=== PATIENT | male | born 1965 | race Caucasian/White ===

== ENCOUNTER → 2017-08-23 | Outpatient (CLI) | payer OTHER ==
--- NOTE | 2017-08-23 12:17 | DIAGNOSTIC IMAGING REPORT ---
LEFT SUBMANDIBULAR REGION ULTRASOUND CLINICAL HISTORY: Enlarging left neck mass COMPARISON STUDY: No previous studies for comparison. FINDINGS: There is a 62 x 46 x 18 mm nonvascular soft tissue mass abutting the left submandibular gland inferior to the left mandible. While this may simply represent a lipoma, accurate tissue characterization is not possible ultrasonographically. A CT scan or MRI study is recommended in follow-up. IMPRESSION: 62 x 46 x 18 mm nonvascular soft tissue mass abutting the left centimeter gland. Accurate tissue characterization is not possible ultrasonographically. A CT scan or MRI study is recommended in follow-up. Electronically signed by: Willian Ricks M.D. 08/23/2017 12:16 PM Dictated Date/Time: 08/23/2017 12:12 PM
== END | disposition home or self-care (01) ==
LOC: C.ULTRBC 11:38
PROVIDERS: ATTEND Nurse Practitioner Family
DX: R22.1 Localized swelling, mass and lump, neck (principal)

== ENCOUNTER 2017-09-15 07:29 | Day surgery (SDC) | payer OTHER ==
[2017-09-13 08:42] VITALS: Ht 182.9 cm; Wt 101.5 kg
--- NOTE | 2017-09-13 09:25 | PAT Medication Instructions ---
Service Date Sep 13, 2017. Current Home Medication List Albuterol Hfa (Ventolin Hfa), 2 PUFFS INH Q6H PRN for PRN Amlodipine (Norvasc), 10 MG PO HS Cyclobenzaprine Hcl (Flexeril), 10 MG PO BID PRN for RN Ferrous Gluconate (Ferrous Gluconate), 324 MG PO QAM Fish Oil ([place]-3), 1-2 CAP PO PRN Fluticasone Propionate (Nasal) (Flonase Allergy Relief), 2 SPRAYS INTNAS PRN Hydrochlorothiazide (Hydrochlorothiazide), 1 TAB PO QAM Hydrocodone/Acetaminophen 5MG/325MG ([place] 5MG/325MG), 1 TABLET PO QID PRN for N Losartan Potassium (Cozaar), 25 MG PO QAM [Voltaren Gel], 1 DOSE TOP PRN Medication Instructions For Your Scheduled Surgery - Hold the following medications as of today: Fish Oil ([place]-3), 1-2 CAP PO PRN - Hold the following medications 24 hours prior to surgery: [Voltaren Gel], 1 DOSE TOP PRN - Hold the following medications the morning of surgery: Losartan Potassium (Cozaar), 25 MG PO QAM Hydrochlorothiazide (Hydrochlorothiazide), 1 TAB PO QAM Ferrous Gluconate (Ferrous Gluconate), 324 MG PO QAM Cyclobenzaprine Hcl (Flexeril), 10 MG PO BID PRN - Take the following medications the morning of surgery with a sip of water OTHERWISE NOTHING TO EAT OR DRINK AFTER MIDNIGHT: Albuterol Hfa (Ventolin Hfa), 2 PUFFS INH Q6H PRN for PRN (use if needed; BRING TO HOSPITAL) Hydrocodone/Acetaminophen 5MG/325MG ([place] 5MG/325MG), 1 TABLET PO QID PRN (may take up to 4 hours prior to surgery if needed) Fluticasone Propionate (Nasal) (Flonase Allergy Relief), 2 SPRAYS INTNAS PRN - Take the following medications as scheduled the night before surgery: Albuterol Hfa (Ventolin Hfa), 2 PUFFS INH Q6H PRN for PRN Amlodipine (Norvasc), 10 MG PO HS Hydrocodone/Acetaminophen 5MG/325MG ([place] 5MG/325MG), 1 TABLET PO QID PRN Cyclobenzaprine Hcl (Flexeril), 10 MG PO BID PRN If you have any questions please call us at [phone] or [phone] or [phone]
--- NOTE | 2017-09-14 10:12 | History and Physical ---
History & Physical Date Sep 14, 2017. Chief Complaint lump in neck, nasal obstruction History of Present Illness The patient is a 52 year old male with complaints of lipoma left neck and septal deviation Additional History Hepatic Disease: No Endocrine Disorder: No Kidney Disease: No Hypertension: No Heart Disease: No Bleeding Tendencies: No Infectious Diseases: No Allergies Coded Allergies: No Known Allergies (Unverified , 09/13/17) Home Medications Scheduled Amlodipine (Norvasc), 10 MG PO HS Ferrous Gluconate (Ferrous Gluconate), 324 MG PO QAM Fish Oil ([place]-3), 1-2 CAP PO PRN Fluticasone Propionate (Nasal) (Flonase Allergy Relief), 2 SPRAYS INTNAS PRN Hydrochlorothiazide (Hydrochlorothiazide), 1 TAB PO QAM Losartan Potassium (Cozaar), 25 MG PO QAM [Voltaren Gel], 1 DOSE TOP PRN Scheduled PRN Albuterol Hfa (Ventolin Hfa), 2 PUFFS INH Q6H PRN for PRN Cyclobenzaprine Hcl (Flexeril), 10 MG PO BID PRN for RN Hydrocodone/Acetaminophen 5MG/325MG ([place] 5MG/325MG), 1 TABLET PO QID PRN for N Physical Examination Skin: warm/dry, no rash Eyes: normal inspection, EOMI, sclerae normal ENT: normal ENT inspection, pharynx normal, + pertinent finding (septum bent to left) Head: normocephalic, atraumatic Neck: supple, no adenopathy, trachea midline, + pertinent finding (large soft mass left neck) Respiratory/Chest: lungs clear, normal breath sounds, no respiratory distress Cardiovascular: regular rate, rhythm, no edema, no murmur Abdomen / GI: normal bowel sounds, non tender Back: normal inspection Extremities: normal inspection, normal range of motion Neurologic/Psych: no motor/sensory deficits, alert, normal reflexes, oriented x 3 Diagnosis septal deviation, lipoma neck Plan of Treatment septoplasty, excision of lipoma
[~2017-09-15] VITALS: Ht 182.9 cm; Wt 101.5 kg
[~2017-09-15 07:29] MED LIST: AMLO-114 PO; CEFAZOLIN 2000MG IV PUSH 10 ML IV SCH; CYCL10TA6 PO; FERR325T18 PO; FLUT0.15 INTNAS; HYDR-5688 PO; HYDR12.55 PO; LACTATED RINGER'S 1000ML 1,000 ML IV SCH; LOSA1TAB PO; OMEG10007 PO; VNTHFA/IN INH; VOLTAREN GEL TOP
[2017-09-15 07:59] VITALS: BP 133/92; PULSE 63; TEMP 36.7; O2SAT 95
--- NOTE | 2017-09-15 08:14 | History & Physical Bridge Note ---
H&P Re-Evaluation Bridge Note: I have examined the patient, reviewed the History & Physical and in the interval since the performance of the History & Physical I have noted the following changes of clinical significance: No changes noted
[2017-09-15] MEDS ORDERED: HYDR-5688 PO (08:15)
[2017-09-15] MEDS ORDERED: HYDROCODONE/ACETAMOPHEN 5/325MG TAB PO PRN ×2 (08:15)
--- NOTE | 2017-09-15 08:17 | Discharge Instructions-SurgCtr ---
Discharge Instructions Date of Service Sep 15, 2017. Visit Reason for Visit: Lipoma, Septal Deviation, Discharge Discharge Diagnosis / Problem: same Discharge Goals Goal(s): Improve function Activity Recommendations Activity Limitations: resume your previous activity Anesthesia . Post Anesthesia Instructions: If you have had General Anesthesia or IV Sedation: * Do not drive today. * Resume driving when surgeon permits. * Do not make important decisions or sign legal documents today. * Call surgeon for: 1. Temperature elevations greater than 101 degrees F. 2. Uncontrollable pain. 3. Excessive bleeding. 4. Persistent nausea and vomiting. 5. Medication intolerance (nausea, vomiting or rash). * For nausea and vomiting use only clear liquids such as: tea, soda, bouillon until nausea subsides, then gradually increase diet as tolerated. * If you have any concerns or questions, call your surgeon's office. If physician is unavailable and it is an emergency, call 911 or go to the nearest emergency room. . Instructions / Follow-Up Instructions / Follow-Up ACTIVITY: Most patients are able to return to a full-time work schedule in 1 week; however this may vary according to your job. It may take longer to return to heavy physical or other demanding work, or shorter if you are feeling well. Do NOT drive a car until you are able to turn the neck side to side, which may take 1-[address] you are taking pain medicines. DIET: You may have temporary throat discomfort or difficulty swallowing. This is due to the surgery around your larynx (voice box) and esophagus (swallowing tube). These symptoms will gradually improve over the course of several weeks. Drink and eat foods that can be swallowed easily, e.g. juice, soup, gelatin, applesauce, scrambled eggs or mashed potatoes. You may be able to return to your usual diet in a couple of days. INCISION CARE: You may shower 24 hours after surgery but please do not swim or soak in a tub for at least 2 weeks. After you are done showering, just pat your incision dry. If it is draining clear fluid, you can cover it with a dry dressing (such as gauze). Do NOT scrub with soap or washcloth for the first 10 days. Mild swelling at the incision site will go away in 4-6 weeks. The pink line will slowly fade to white during the next 6-12 months. Use a sunscreen (SPF#30 or higher) or wear a scarf for protection if in the sun for the first 6 months to a year as the sun can darken your scar. You may begin to use a hypoallergenic moisturizing cream (no vitamin E, Mederma , or other scar creams) along the incision after 2 weeks. COMMON PROBLEMS: Numbness of the skin under the chin or above the incision is normal and should go away in a few weeks. You may feel a lump or pressure in your throat sensation when swallowing for a few days. Your incision may feel itchy while it heals. Avoid rubbing or scratching if possible. You may feel neck stiffness, tightness or a pulling feeling. Some people prefer to sleep with an extra pillow for the first few days after the surgery, this helps keep swelling around your incision to a minimum. Your voice may be hoarse or weak. Pitch or tone may change. You may have difficulty singing. This usually goes back to normal over 6 weeks to 6 months. After surgery, you may notice a change in your mood, emotional ups and downs, depression, irritability or fatigue and weakness. These changes will get better as time passes. You do not need to be at bed rest, being active is normally well tolerated within reason. CALL YOUR DOCTOR IF: For any non-urgent questions, call Dr. Brown office [phone] or the nursing unit where you were a patient. Call Dr. Chau [phone] or go to the Emergency Room if you have fever ( temperature greater than 100.5), chills, lightheadedness, shortness of breath, difficulty breathing, nausea, vomiting, numbness or tingling in your fingers, hands, or mouth, muscle spasms, or if you notice signs of wound infection ( redness, tenderness, or drainage from the incision). Please also call or go to the Emergency Room if you have any other urgent concerns. FOLLOW UP VISIT: Follow-up visit with Dr. Chau. Please call to schedule if not already scheduled.ACTIVITY RECOMMENDATIONS: * Being up and around is good, but no strenuous activity, heavy lifting or physical exertion for one week. * Keep your head elevated 30 degrees when lying down or sleeping. * Do not blow your nose for 48 hours, sniff back instead. * Avoid hot showers. OVER THE COUNTER MEDICATIONS: * You may use Tylenol * Avoid aspirin or aspirin containing products, e.g. as they may increase bleeding. SPECIAL CARE INSTRUCTIONS: * Expect to have bloody drainage from your nose and/or down your throat for one to three days. Change drip pad as needed. * Begin irrigating your nose with saline solution today, at least six to ten times per day and sniff back to help remove old clots or crust. * You may experience nasal and facial congestion, pain and pressure, this is normal. * Please call with any significant and/or progressive pain, redness, swelling around the eyes, visual changes, fever of 101.5 degrees F, active bleeding or any problems or concerns. * If active bleeding occurs, spray the nose three times at one minute intervals with Afrin spray and call or cell phone: . If unable to reach the doctor, go to the nearest Emergency Department. Special Diet: * Avoid extremely hot fluids. FOLLOW UP VISIT: Follow-up Visit with Dr. Chau If not already scheduled, please call to schedule. Diet Recommendations Home Diet: no limitations Pending Studies Studies pending at discharge: no Medical Emergencies . Who to Call and When: Medical Emergencies: If at any time you feel your situation is an emergency, please call [phone] immediately. . Non-Emergent Contact Non-Emergency issues call your: Primary Care Provider . . "Provider Documentation" section prepared by Aminah Chau. . [place] Drug Monitoring Program Search Results: no issues identified
[2017-09-15] MEDS ORDERED: LIDOCAINE HCL 2% LOCAL 50ML VIAL ONE (08:58)
[2017-09-15] MEDS ORDERED: FENTANYL CITRATE INJ 50 MCG/1 ML 2 ML VIAL IV PRN (09:00)
[2017-09-15] MEDS ORDERED: EpHEDrine SULFATE INJ 50 MG/ML AMP IV PRN (09:00)
[2017-09-15] MEDS ORDERED: ATROPINE SULFATE 0.1 MG/ML 5ML SYR IV PRN (09:00)
[2017-09-15] MEDS ORDERED: ONDANSETRON INJ 2 MG/ML 2 ML VIAL IV PRN (09:00)
[2017-09-15] MEDS ORDERED: ONDANSETRON INJ 2 MG/ML 2 ML VIAL ONE (09:04)
[2017-09-15] MEDS ORDERED: LIDOCAINE HCL 2% 2 ML VIAL (20MG/ML) ONE (09:04)
[2017-09-15] MEDS ORDERED: MIDAZOLAM HCL 1 MG/ML 2ML VIAL ONE (09:04)
[2017-09-15] MEDS ORDERED: SUCCINYLCHOLINE CHLORIDE 20 MG/ML 10 ML VIAL IV ONE (09:04)
[2017-09-15] MEDS ORDERED: PHENYLEPHRINE HCL INJ 10 MG/ML VIAL ONE (09:04)
[2017-09-15] MEDS ORDERED: FENTANYL CITRATE INJ 50 MCG/1 ML 2 ML VIAL ONE ×2 (09:04→10:02)
[2017-09-15] MEDS ORDERED: GLYCOPYRROLATE INJ 0.2 MG/ML VIAL ONE (09:04)
[2017-09-15] MEDS ORDERED: PROPOFOL IV EMULSION 10 MG/ML 20 ML VIAL IV ONE (09:04)
[2017-09-15] MEDS ORDERED: EpHEDrine SULFATE INJ 50 MG/ML AMP ONE (09:04)
[2017-09-15] MEDS ORDERED: NEOSTIGMINE METHYLSULFATE 5 MG/5 ML SYR ONE (09:04)
[2017-09-15] MEDS ORDERED: DEXAMETHASONE SOD INJ 4 MG/ML VIAL ONE (09:04)
[2017-09-15] MEDS ORDERED: LIDOCAINE 4% INH SOLN 4 ML BTL ONE (09:09)
[2017-09-15] MEDS ORDERED: EpINEphrine HCL INJ 1 MG/ML 5ML SYRINGE ONE (09:09)
[2017-09-15] MEDS ORDERED: GELATIN SPONGE 12-7MM ONE (09:09)
[2017-09-15] MEDS ORDERED: LIDO 2%/EPINEPHRINE 1:100000 20 ML VIAL INFIL ONE (09:09)
[2017-09-15] MEDS ORDERED: MUPIROCIN 2% OINT 22 GM TUBE ONE (09:09)
[2017-09-15] MEDS ORDERED: KETAMINE HCL INJ 50 MG/ML 10 ML VIAL ONE (09:38)
--- NOTE | 2017-09-15 11:24 | OPERATIVE REPORT ---
DATE OF OPERATION: 09/15/2017 PREOPERATIVE DIAGNOSES: 1. Lipoma, left neck. 2. Septal deviation. POSTOPERATIVE DIAGNOSIS: Same. PROCEDURE: Excision lipoma, left neck and septoplasty. SURGEON: Dr. Chau. ANESTHESIA: General endotracheal. COMPLICATIONS: None. BLOOD LOSS: 20 mL. HISTORY OF PRESENT ILLNESS: This 52-year-old gentleman presented with increasing soft mass of the left neck over the last 1 year, also has left-sided nasal obstruction with septal deviation. OPERATION AND FINDINGS: PROCEDURE: The patient was brought to the operating room and placed in supine position. General endotracheal anesthesia was induced. Prepped with ChloraPrep and draped in the usual sterile manner with the neck hyperextended for excision of the left neck lipoma. The incision was injected with 2% Xylocaine with 1:100,000 strength epinephrine. The incision was made using the 15 blade, carried down through the skin and subcutaneous layer using the 15 blade. The incision was carried through the platysma layer exposing the submental muscles which was retracted anteriorly. The lipoma was dissected free bluntly and sharply with the hemostat with the Metzenbaum scissors and with the angle clamps. In this manner, dissecting the entire lipoma free from underneath submental muscle it was attached to the submandibular gland posteriorly. Multiple adhesions were lysed using the Metzenbaum scissors and also the bipolar cautery preserving the submandibular gland and dissecting the lipoma away from the submandibular gland. In this manner, the entire submental space lipoma was removed preserving the submandibular gland. Hemostasis was controlled using the bipolar cautery. The [place] drain was placed in the depth of the wound. Incision was closed with interrupted 4-0 Vicryl sutures on the platysmal layer, interrupted 3-0 chromic sutures on the subcutaneous layer and interrupted 2-0 Prolene sutures on the skin with a drain sewn in place. Light pressure dressing was placed. The nose was decongested with cottonoids with topical solution of 4 mL of 4% Xylocaine mixed with 1 mL of epinephrine. Injection 2% Xylocaine 1:1,000 strength epinephrine was also used. The left hemitransfixion incision was made and mucoperichondrium elevated off the left side of the septum. Septal cartilage inferiorly from the V[place] and maxillary crest and posteriorly from the perpendicular plate of the ethmoid. A strip of cartilage was projecting to the left was removed from inferiorly and the deviated portion of the perpendicular plate of the ethmoid projecting to the left was removed in small pieces via bilateral posterior tunnel using the Delvis rongeurs to cut small pieces of the perpendicular plate of the ethmoid and then the bone spur was removed using the Sergey forceps, this returning the septum to the midline. The septum was closed with continuous mattress suture of 4-0 plain gut and anterior nasal packing of Gelfoam was placed. The patient tolerated procedure well and was taken to recovery area in satisfactory condition. I attest to the content of the Intraoperative Record and any orders documented therein. Any exceptions are noted below. MTDD
[2017-09-15] MEDS: HYDROmorphone INJ 1 MG/ML SYR IV PRN ×4 (11:32→11:45)
[2017-09-15] MEDS ORDERED: LABETALOL HCL IV 5 MG/ML 20ML IV PRN (11:45)
[2017-09-15] MEDS ORDERED: LABETALOL HCL IV 5 MG/ML 20ML IV ONE (11:59)
[2017-09-15 12:15] VITALS: BP 137/84; PULSE 64; TEMP 36.3; O2SAT 94
[2017-09-15 12:48] VITALS: BP 141/91; PULSE 73; O2SAT 95
[2017-09-15] MEDS ORDERED: SODIUM CHLORIDE 0.9% 1000ML 1,000 ML IV SCH (13:00)
[2017-09-15 13:13] VITALS: BP 150/88; PULSE 76; TEMP 36.6; O2SAT 96
== END 2017-09-15 13:23 | disposition home or self-care (01) ==
LOC: C.ACU 07:29
PROVIDERS: ATTEND Otolaryngology
DX: J34.2 Deviated nasal septum (principal); D17.0 Benign lipomatous neoplasm of skin and subcutaneous tissue of head, face and neck; Z79.899 Other long term (current) drug therapy

== ENCOUNTER 2023-10-20 09:20 | Inpatient (IN) ==
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
[2023-10-20] MEDS: dexAMETHasone**PF** 10 MG/ML VIAL IV SCH (09:59)
[2023-10-20] MEDS: LACTATED RINGER'S 1,000 ML IV SCH (09:59)
[2023-10-20] MEDS: ACETAMINOPHEN 500 MG TAB PO SCH ×2 (09:59→23:30)
[2023-10-20] MEDS: LR 60ML/HR IV SCH (10:00)
[2023-10-20] MEDS: FAMOTIDINE 20 MG TAB PO SCH (10:00)
[2023-10-20] MEDS: GABAPENTIN 300 MG CAP PO SCH (10:00)
[2023-10-20] MEDS ORDERED: ONDANSETRON INJ 2 MG/ML 2 ML VIAL IV PRN (10:12)
[2023-10-20] MEDS ORDERED: ePHEDrine sulfate 50 MG/ML AMP IV PRN (10:12)
[2023-10-20] MEDS ORDERED: PROMETHAZINE HCL 6.25 MG in SODIUM CHLORIDE 0.9% 50 ML IV PRN (10:12)
[2023-10-20] MEDS ORDERED: ATROPINE SULFATE 0.1 MG/ML 10ML SYR IV PRN (10:12)
[2023-10-20] MEDS ORDERED: HYDROmorphone INJ 2 MG/ML SYR/VIAL IV PRN (10:12)
[2023-10-20] MEDS ORDERED: BUPIVACAINE 0.5 % 5 MG/1 ML PF 10ML VIAL ONE (10:18)
--- NOTE | 2023-10-20 10:28 | History & Physical Bridge Note ---
Date of Service October 20, 2023 History & Physical Bridge Note I have examined the patient, reviewed the History & Physical and in the interval since the performance of the History & Physical I have noted the following changes of clinical significance: no changes noted
[2023-10-20] MEDS ORDERED: MIDAZOLAM HCL 1 MG/ML 2ML VIAL ONE (10:54)
[2023-10-20] MEDS ORDERED: fentaNYL citrate PF 100 MCG/2 ML VIAL ONE (10:54)
[2023-10-20] MEDS: TRANEXAMIC ACID 1,000 MG **IV Pre-op IV SCH (11:25)
[2023-10-20] MEDS: ceFAZolin 2000MG 2,000 MG/15 ML SYR IV SCH ×2 (11:35→18:51)
[2023-10-20] MEDS ORDERED: KETAMINE HCL 10MG/ML SYR ONE (12:02)
[2023-10-20] MEDS: BUPIVACAINE/EPINEPHRINE 0.5% MPF 1:200,000 30 ML VIAL ONE (12:51)
[2023-10-20] MEDS ORDERED: LIDOCAINE 2% 2 ML VIAL/AMP(20MG/ML) INFIL ONE (12:51)
[2023-10-20] MEDS: TRANEXAMIC ACID 1,000 MG **IV Intra-op IV SCH (12:51)
[2023-10-20] MEDS ORDERED: PROPOFOL IV EMULSION 10 MG/ML 20 ML VIAL IV ONE (12:51)
[2023-10-20] MEDS ORDERED: ACETAMINOPHEN 500 MG TAB PO PRN (13:16)
--- NOTE | 2023-10-20 13:59 | Fluoroscopy Report ---
FL femur LT 2V CLINICAL HISTORY: LEFT INTRAMEDULLARY NAIL FIXATION FEMUR COMPARISON STUDY: Left femur 10/17/2023. FLUOROSCOPY TIME: 1 minute and 56 seconds FLUOROSCOPY IMAGES: 4 Ka,r: 15.8 mGy FINDINGS: There is an intramedullary kajal and interlocking femoral neck pin within the left femur. The hardware appears intact. The alignment is anatomic. This traverses the proximal femoral lesion. IMPRESSION: Fluoroscopic assistance as above. ACT 112: Negative or not required by law. Electronically signed by: Yazan Curtis M.D. 10/20/2023 1:58 PM
--- NOTE | 2023-10-20 14:31 | Anesthesiology Progress Note ---
Date of Service October 20, 2023 Anesthesia Post Procedure Vital Signs Vital Signs: Temp Pulse Pulse Resp BP Pulse Ox O2 Del Method 10/20/23 14:25 85 18 137/88 93 Room Air 10/20/23 14:15 81 18 122/82 92 Room Air 10/20/23 14:05 84 18 140/87 94 Room Air 10/20/23 13:55 79 15 139/92 93 Room Air 10/20/23 13:45 82 17 136/91 96 Room Air 10/20/23 13:35 84 17 130/79 99 Oxymask 10/20/23 13:25 77 20 126/81 98 Oxymask 10/20/23 13:15 75 18 118/73 98 Oxymask 10/20/23 13:07 36 C L 84 18 122/79 97 Oxymask 10/20/23 10:17 36.7 C 94 H 20 177/124 H 94 Room Air O2 Flow Rate 10/20/23 14:25 10/20/23 14:15 10/20/23 14:05 10/20/23 13:55 10/20/23 13:45 10/20/23 13:35 4 10/20/23 13:25 4 10/20/23 13:15 6 10/20/23 13:07 6 10/20/23 10:17 Transfer of Care Handoff Completed per policy Notes Mental Status: alert / awake / arousable and participated in evaluation Nausea / Vomiting: adequately controlled Pain: adequately controlled Airway Patency, RR, SpO2: stable & adequate BP & HR: stable & adequate Hydration State: stable & adequate Neuraxial Anesthesia: was administered and sensory block is resolving Anesthetic Complications: no major complications apparent and Pt Satisfied with anesthetic care
--- NOTE | 2023-10-20 15:13 | Operative Report ---
PG Post Operative Report Pre & Post Diagnosis Operation Date: 10/20/23 11:00 Pre-Op Diagnosis: Impending pathologic fracture of the left femur with lung metastases Post-Op Diagnosis: Impending pathologic fracture of the left femur with lung metastases I identified the patient and participated in the time-out.: Yes Procedure Operation Date: 10/20/23 11:00 Actual Procedures p Left Femur Intramedullary Nail Fixation(Left) - Domingo Cooper DO Surgeon Domingo Cooper DO Soda Tester Domingo Benjamin PA-C Estimated Blood Loss 30 Findings Consistent with Post-Op Diagnosis Specimens None Description of Procedure On October Wai arrived at [facility] for the above procedure. He was seen in the preop holding area and the operative extremity identified and signed. He was given a preoperative antibiotic and a spinal anesthetic. He was taken back to the operating room and transferred to the fracture table. He was put under basic sedation. The left leg was brought to treat gentle traction. The left hip was then prepped and draped sterile fashion. A timeout was done. The patient and the operative extremity was properly identified. A longitudinal incision was made just superior to the greater trochanter. Dissection was taken down through the fascia. A guidepin was then placed at the tip of the greater trochanter and advanced down the center of the femoral canal. A 17 mm opening reamer was used. A ball-tipped guidewire was then placed down the femoral canal. A single 12 mm reamer was passed. The Synthes TFN nail measured to be 400 mm. A 400 elected millimeter Synthes TFN nail was then impacted into place. Appropriate placement was checked on orthogonal fluoroscopic images. A small lateral incision was made and the cannula was advanced for the helical blade. A guidepin was placed into the center center position of the femoral head. The lateral cortex was then drilled. A Synthes helical blade was then impacted into place. The blade was then locked with a locking screw. The outrigger was then removed. Final fluoroscopic images showed anatomic alignment. A single distal locking screw was then placed with the use of peripheral mary's igloo techniques. The wounds were then irrigated. Deep fascia was closed with #1 Vicryl. Skin was closed with 2-0 Vicryl and pascual. He was then placed in a soft dressing. He was then transferred to a hospital bed and taken to the postanesthesia care unit in stable condition. He tolerated the procedure well. Domingo Benjamin PA-C, was present for the entire procedure. He was critical for patient positioning, prepping, draping, retraction exposure, wound closure and application of sterile dressing. I attest to the content of the Intraoperative Record and any orders documented therein. Any exceptions are noted below.
[2023-10-20] MEDS ORDERED: ALBUTEROL HFA 8 GM INHALER INH PRN (16:36)
[2023-10-20] MEDS: MoRPHine SULFATE CR 15 MG TABCR PO SCH (17:31)
--- NOTE | 2023-10-20 17:47 | XRay Report ---
XR femur LT 2V routine CLINICAL HISTORY: Post-Operative implant position COMPARISON STUDY: Pelvis CT 10/11/2023. FINDINGS: There is a intramedullary kajal and interlocking femoral neck pin within the left femur. The hardware appears intact. This traverses the proximal femoral destructive lesion measuring 6.3 cm. Ski n pascual are in place. No acute fracture at this time. No dislocation. Old, healed left pubic ring f racture again noted. IMPRESSION: Postoperative changes as described above. The hardware appears intact. ACT 112: Negative or not required by law. Electronically signed by: Yazan Curtis M.D. 10/20/2023 5:46 PM
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
[2023-10-20] MEDS: oxyCODONE HCL IR 5 MG TAB (IMMEDIATE RELEASE) PO PRN (18:56)
[2023-10-20] MEDS: MoRPHine SULFATE 4 MG/ML 1 ML CARP\\VIAL IV PRN ×2 (19:30→23:22)
[2023-10-20 19:39] LABS: Hematocrit (blood only) 39.2 % (42.0-52.0); Hemoglobin 12.6 g/dl (14.0-18.0)
[2023-10-20] MEDS: ASPIRIN 81 MG ECTAB PO SCH (19:57)
[2023-10-20] MEDS: amLODIPine BESYLATE 5 MG TAB PO ONE (19:58)
[2023-10-20] MEDS: CYCLOBENZAPRINE HCL 10 MG TAB PO PRN (19:59)
[2023-10-20 20:19] LABS: Calcium 8.8 mg/dl (8.6-10.3); Potassium 3.8 mmol/L (3.5-5.1)
[2023-10-20 20:25] LABS: BUN Creatinine Ratio 12.2 (10-20); Creatinine Clr Calc Pharmacy 74.9 ml/min; Est GFR (African American) 75.1 ml/min; Est GFR (Non-African American) 64.8 ml/min
[2023-10-20] MEDS: HYDROmorphone INJ 0.5 MG/0.5 ML SYR IV STA (21:08)
[2023-10-20] MEDS: MELATONIN 3 MG TAB PO PRN (21:08)
[2023-10-20] MEDS ORDERED: oxyCODONE HCL IR 5 MG TAB (IMMEDIATE RELEASE) PO PRN (23:00)
[2023-10-20] MEDS: KETOROLAC 30 MG/ML VIAL IV STA (23:42)
[2023-10-21] MEDS: KETOROLAC 30 MG/ML VIAL IV SCH (06:09)
--- NOTE | 2023-10-21 07:05 | Orthopedic Progress Note ---
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 Will see how he does today with therapy. If he does well with therapy he can go home later today, however, if he is slow with therapy or if he is having a lot of pain then I am happy to keep him an extra day. He is on aspirin for DVT prophylaxis. Sari Carreno was seen and examined at bedside this morning. Unfortunately he is having a lot of pain in the left leg. He was having some trouble ambulating yesterday. He has no other complaints.. Review of Systems All systems reviewed & are unremarkable except as noted in HPI & below. Physical Exam On physical examination of the left leg, the leg is out full extension. He has active dorsiflexion plantarflexion of his left ankle.. Results & Data Results & Data Laboratory Results . Diagnostic Findings Postoperative x-rays of the left femur show the prosthesis to be in good alignment.. 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
[2023-10-21 07:09] LABS: BUN Creatinine Ratio 18.2 (10-20); Calcium 9.2 mg/dl (8.6-10.3); Est GFR (African American) 97.6 ml/min; Est GFR (Non-African American) 84.2 ml/min; Potassium 4.4 mmol/L (3.5-5.1)
[2023-10-21] MEDS: LOSARTAN POTASSIUM 50 MG TAB PO SCH (08:27)
[2023-10-21] MEDS: UMECLIDINIUM/VILANTEROL 62.5/25MCG 7 PUFFS/INHALER INH SCH (08:27)
[2023-10-21] MEDS: MoRPHine SULFATE 4 MG/ML 1 ML CARP\\VIAL IV PRN (08:39)
--- NOTE | 2023-10-21 11:34 | Hospitalist Progress Note ---
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 Outpatient evaluation with necrotic mediastinal adenopathy suspicious for metastatic disease versus lymphoproliferative disease. Patient did see pulmonology, low suspicion for infectious etiology. Follow-up biopsy showed metastatic squamous cell carcinoma, and PET scan confirmed FDG avid metastatic disease. Patient is following with Dr. Gupta and Dr. Loving. He is pending initiation of chemo next week and has had simulation for radiation which is also due to start next week Continue outpatient follow-up for this, no acute management change -S/p Left Femur Intramedullary Nail fixation with Dr. Clifford 10/20 - Discussed DVT proh with oncology and Dr. clifford, transitioned patient to lovenox SQ 40 at discharge (2) Tachycardia: Plan: Tachycardia Mild regular tachycardia 90slow 100s. postop. ~100bp, at the bedside. Prior EKG from 10/17 reviewed. This showed nonspecific ST changes, normal sinus rhythm, QRS of 92, [place] 206. Repeat EKG similar. Initially with poor wandering baseline automated read interpreted as STEMI, repeat improved quality tracing without territorial ST segment change or T wave inversion. Patient is clinically without any chest pain Suspect reactive tachycardia with pain and mild volume contraction. Fluids continued. Patient feels his pain overall improves with oxycodone which works well for him -10/21 HRs 80s. Repeat EKG without ST changes or T wave invervsion. (3) COPD (chronic obstructive pulmonary disease): Plan: COPD with emphysema Gold B Continue Stiolto/formulary equivalent Current smoker [id number] history with recent 1 pack/day tobacco use cutting back now 1 pack every few days. Declines patch/NRT at bedside No wheezing on exam, no acute exacerbation noted (4) Hypertension: Plan: Hypertension Patient did not take his losartan, normally well-controlled Suspect increased in the setting of pain and recent surgery in addition to hav ing his losartan held. Received one-time dose of amlodipine for BP 10/20 - Resumed losartan 10/21 (5) Nephrolithiasis: Plan: Large Right side Nephroliathasis - Seen on PET scan 09/21 - 1.9cm calculus in the right renal pelvis with mild hydronephrosis -creatinine normal Patient does endorse occasional, Right sided back pain. Will need outpatient urology follow up. Plan Dispo: medically stable for discharge Will need outpatient urology follow up lovenox rx sent Admission and Anticipated Discharge Date Admission Date: October 20, 2023 Supervising Physician Co-Signing Physician Notes PA Supervision Note: I did not personally see or examine the patient today, but I verified all lynch points of ARSALAN Rodriguez's assessment and plan with the following exceptions/additions: None Subjective Patient seen sitting up in the chair, states pain is more controlled. Denies CP, SOB or visual changes. Discussed kidney stone seen on previous imaging, patient was not aware of this. Does report occasional upper back pain. Physical Exam Physical Exam: General: NAD, VS as above Resp: normal respiratory effort, lungs clear to auscultation CV: RRR, no murmur, Results & Data Results & Data Vital Signs (Past 12 Hours) Vital Signs Temp Pulse Resp BP Pulse Ox O2 Del Method 10/21/23 08:29 36.7 C 78 18 183/98 H 97 Room Air 10/21/23 00:11 36.9 C 83 18 155/88 H 94 Room Air Laboratory Results BMP and H&H reviewed PG Care Time/CCT Total # of Minutes Spent Total Time Spent with Patient: Total time spent is greater than 50% in coordination of care (as documented) at patient's floor/unit and/or counseling patient: Coding Level of Care Code 24160 SUB INP/OBS CARE 2/35MIN Diagnoses 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
[2023-10-21] MEDS: ENOXAPARIN INJ 40 MG/0.4 ML SYR SQ ONE (13:30)
--- NOTE | 2023-10-21 17:17 | Electrocardiogram Report ---
Test Reason : Blood Pressure : / mmHG Vent. Rate : 100 BPM Atrial Rate : 100 BPM P-R Int : 252 ms QRS Dur : 086 ms QT Int : 346 ms P-R-T Axes : 000 070 123 degrees QTc Int : 446 ms Poor data quality, interpretation may be adversely affected Sinus rhythm Moderate voltage criteria for LVH, may be normal variant Abnormal ECG When compared with ECG of 17-OCT-2023 15:44, Probably no change Confirmed by Clem Aldana ([id number]) on 10/21/2023 5:17:14 PM Referred By: Domingo Cooper Confirmed By:Clem Aldana
--- NOTE | 2023-10-21 17:40 | Electrocardiogram Report ---
Test Reason : Blood Pressure : / mmHG Vent. Rate : 105 BPM Atrial Rate : 105 BPM P-R Int : 214 ms QRS Dur : 088 ms QT Int : 344 ms P-R-T Axes : 000 072 071 degrees QTc Int : 454 ms Sinus tachycardia with 1st degree A-V block with occasional Premature ventricular complexes Moderate voltage criteria for LVH, may be normal variant Abnormal ECG When compared with ECG of 20-OCT-2023 18:40, (unconfirmed) Premature ventricular complexes are now Present Confirmed by Clem Aldana ([id number]) on 10/21/2023 5:39:51 PM Referred By: Domingo Cooper Confirmed By:Clem Aldana
--- NOTE | 2023-10-22 21:57 | Electrocardiogram Report ---
Test Reason : Blood Pressure : / mmHG Vent. Rate : 094 BPM Atrial Rate : 094 BPM P-R Int : 176 ms QRS Dur : 106 ms QT Int : 366 ms P-R-T Axes : 009 071 068 degrees QTc Int : 457 ms Normal sinus rhythm Voltage criteria for left ventricular hypertrophy Abnormal ECG When compared with ECG of 20-OCT-2023 18:44, (unconfirmed) Premature ventricular complexes are no longer Present FL interval has decreased Confirmed by Clem Aldana ([id number]) on 10/22/2023 9:57:11 PM Referred By: Domingo Cooper Confirmed By:Clem Aldana
--- NOTE | 2023-10-27 14:16 | Discharge Summary ---
Date of Service October 27, 2023 Principal Diagnosis Same as "Discharge Diagnosis" noted below under Discharge Instructions. Discharge Exam On physical examination of the left leg, the leg is out full extension. He has active dorsiflexion plantarflexion of his left ankle.. Discharge Data Consultations 10/20/23 17:12 Consult Hospitalist Routine 10/21/23 14:00 Consult OLIVE facing machine operator Routine Procedures Performed Operation Date: 10/20/23 11:00 Actual Procedures p Left Femur Intramedullary Nail Fixation(Left) - Domingo Cooper DO Ordered Studies 10/20/23 11:00 FL femur LT 2V Routine Hospital Course (1) Metastatic carcinoma to bone: On October 20, 2023 Wai arrived at [facility] and underwent prophylactic nail fixation of his left hip. Postoperatively he was transferred to the general orthopedic floors. His hospital course was uneventful. On postop day #1, his vital signs were stable and his pain was fairly well-controlled. He was having a lot of pain in the morning but it seemed to get better with the pain medications. He was seen by physical therapy and was able to do ambulation and range of motion exercises. He was then discharged home. He will follow-up with orthopedics in 2 weeks. PG Care Time/CCT Total # of Minutes Spent Total Time Spent with Patient: Total time spent is greater than 50% in coordination of care (as documented) at patient's floor/unit and/or counseling patient: Discharge Plan Discharge Items Patient Disposition: Home - Self-Care Reason For Visit: Bone Neoplasm Left Femur Discharge Diagnosis: Intramedullary nail fixation of the left femur Activity: As commented below Non-emergency contact: Surgeon Call non-emergency contact if: your wound has increased redness and your wound has increased drainage Follow-up/Referrals: Lori Ortiz PA-C [Primary Care Provider] - Diet: Regular Addtl Attending Provider Instructions: ORTHOPEDIC INSTRUCTIONS Hip Fracture Activity and Therapy Recommendations: 1. You were shown a series of exercises in the hospital. Do these exercises three times each day if you are able. 2. Get up and walk several times each day if you are capable. Make sure you have assistance is needed. For the first four weeks, try not to stand or walk for more than one hour at a time. If you do stand or walk for more than one hour, you will not hurt anything, but your leg will likely swell. 3. As you feel comfortable, you may change from the walker or crutches to a cane and then to independent walking if you are able. Please be safe. Medications: 1. Narcotic You will likely be sent from the hospital with the narcotic pain medication that worked best throughout your stay. 2. Other medications may be given for specific circumstances. If you have any questions, please call the office at [phone]. 3. Resume previous home medications unless otherwise instructed TEDs/Elastic Stockings: The white elastic stockings help limit swelling and prevent blood clots from forming in your legs. The more you wear them, the more they work. Wear them for six weeks. Dressing Care: [place] can be open to air as long as the incisions are not draining. If the incisions are draining or if the pascual are getting caught on your clothes then please cover the pascual with dry gauze. Change the dressings as necessary to keep the incision as dry as possible Showering: You may shower 5 days from the day of surgery as long as the incisions are not draining. Do not soak the incision. Let soapy water run over the pascual and pat them dry. Things To Watch For: 1. Drainage from the incision site that occurs more than one week after your surgery. 2. Increased redness at the incision site. 3. Fever above 102 degrees Fahrenheit. 4. Unusual chest pain or shortness of breath. 5. Call [facility] at with any of the above problems Follow-Up Visit: Follow-up with Dr. Cooper's PA (Domingo Benjamin) 2-3 weeks after your day of surgery. He will remove your pascual and answer any questions. If you have any additional questions or concerns, Dr Cooper is usually in the office at the same time and will be available Please call the office to set up an appointment for a time that works for you. Addtl [employer] Lead Provider Instructions: You will take a lovenox injection every day. Your oncologist is aware of this and they can discuss with you when to stop taking it. The nurse will teach you how to do the injections and the pharmacist can also help with this. Pending Studies at Discharge: No Stand-Alone Forms: [facility], Pain - Opioid Pain Management, Smoking Cessation Medications and DC Order Prescriptions: New hydrocodone-acetaminophen 5-325 mg tablet 1 tab PO Q6H PRN (Reason: pain) Qty: 30 0RF enoxaparin [Lovenox] 40 mg/0.4 mL syringe 40 mg subcut DAILY 14 Days Qty: 5.6 0RF Continued cyclobenzaprine 10 mg tablet 10 mg PO HS PRN (Reason: Pain) Stiolto Respimat 2.5-2.5 mcg/actuation mist 2 puff inhalation DAILY Qty: 4 2RF albuterol sulfate [Ventolin HFA] 90 mcg/actuation HFA aerosol inhaler 2 puff INHALATION Q6H PRN (Reason: SOB) Qty: 6.7 2RF losartan 50 mg Tablet 50 mg PO QAM morphine 15 mg Tablet Extended Release 15 mg PO Q12H Discharge Orders: Discharge Order (Routine); Ordered 10/21/23 Ordered By: Domingo Patton/Other Patient Handouts: DVT Post Op Prevention Admission Data Admit Date/Time: 10/20/23 13:15 Attending Provider: Domingo Cooper Admit Provider: Domingo Cooper Primary Care Provider: Lori Ortiz Other Providers: Love Martines Other Interventions: Discharge Summary Assessment (RN) Last Done: 10/21/23 13:16
== END 2023-10-21 13:47 | disposition home or self-care (01) | DRG 481 ==
LOC: ASU 09:20 → 3N 13:15

== ENCOUNTER 2024-07-12 15:39 | Inpatient (IN) ==
[2024-07-12 17:02] LABS: Basophils # (auto) 0.03 K/uL (0.00-0.20); Basophils % (auto) 0.2 %; Eosinophils # (auto) 0.02 K/uL (0.00-0.50); Eosinophils % (auto) 0.2 %; Hematocrit (blood only) 40.3 % (42.0-52.0); Hemoglobin 12.6 g/dl (14.0-18.0); Immature Granulocytes # (auto) 0.05 K/uL (0.01-0.20); Immature Granulocytes % (auto) 0.4 %; Lymphocytes # (auto) 0.59 K/uL (1.20-3.40); Lymphocytes % (auto) 4.7 %; Mean Corpuscular Hemoglobin 27.3 pg (25.0-34.0); Mean Corpuscular Hgb Conc 31.3 g/dL (32.0-36.0); Mean Corpuscular Volume 87.2 fL (80.0-100.0); Mean Platelet Volume 10.2 fL (9.4-12.4); Monocytes # (auto) 1.18 K/uL (0.11-0.59); Monocytes % (auto) 9.4 %; Neutrophils # (auto) 10.63 K/uL (1.40-6.50); Neutrophils % (auto) 85.1 %; Platelet Count 407 K/uL (130-400); RDW Coefficient of Variation 15.5 % (11.5-14.5); RDW Standard Deviation 49.8 fL (36.4-46.3); Red Blood Count 4.62 M/uL (4.70-6.10)
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
[2024-07-12] MEDS: SODIUM CHLORIDE 0.9% 1,000 ML IV ONE ×2 (17:11→17:49)
[2024-07-12 17:23] LABS: Alanine Aminotransferase 22 U/L (7-52); Albumin Globulin Ratio 1.1 (0.9-2); Albumin Level 3.9 gm/dl (3.4-5.0); Alkaline Phosphatase 150 U/L (34-104); Anion Gap 7 (3-11); Aspartate Aminotransferase 24 U/L (13-39); BUN Creatinine Ratio 19.3 (10-20); Bilirubin,Total 0.5 mg/dl (0.2-1.0); Blood Urea Nitrogen 21 mg/dl (6-23); Calcium 12.7 mg/dl (8.6-10.3); Carbon Dioxide 31 mmol/L (21-32); Chloride 93 mmol/L (98-107); Globulin 3.7 gm/dl (2.5-4.0); Glucose 98 mg/dl (70-99(Fasting)); Magnesium 2.5 mg/dl (1.7-2.4); Potassium 4.6 mmol/L (3.5-5.1); Sodium 131 mmol/L (136-145); Total Protein 7.6 gm/dl (6.0-8.3)
[2024-07-12 17:28] LABS: INR 1.1 (0.9-1.1); Partial Thromboplastin Ratio 0.9; Partial Thromboplastin Time 25 Seconds (21-31); Prothrombin Time 11.4 Seconds (9.0-12.0); Troponin I High Sensitivity 9.3 pg/ml (0-20)
[2024-07-12] MEDS: fentaNYL citrate PF 100 MCG/2 ML VIAL IV STA (17:44)
--- NOTE | 2024-07-12 18:07 | XRay Report ---
EXAM: Radiograph of the Chest 1 View INDICATION: Sepsis. TECHNIQUE: Frontal view of the chest. COMPARISON: No relevant prior studies available. FINDINGS: Lungs and pleural spaces: Trace basilar pleural effusion versus thickening. Mild atelectasis or scarring noted in the left lung base. No pneumothorax. Symmetrical interstitial prominence likely chronic. No pulmonary edema. No consolidation or pulmonary edema. Heart: Shape and configuration within normal limits allowing for technique. Mediastinum: Normal contour. Bones/joints: Degenerative changes noted throughout the spine. No acute osseous abnormality seen. Soft tissues: No abnormality noted. No radiopaque foreign body noted. Tubes, lines and devices: Left subclavian central venous port catheter terminates in the mid SVC. Upper abdomen: No abnormality noted. IMPRESSION: 1. Trace bilateral pleural effusions versus pleural thickening. 2. Mild left basilar atelectasis or scarring. 3. Lines and tubes as above. ACT 112: Negative or not required by law. Electronically signed by Lyssa Li 07-12-2024 6:06 PM
[2024-07-12] MEDS: PIPERACILLIN/TAZOBACTAM 4.5 GM/100 ML BAG IV ONE (18:59)
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
[2024-07-12] MEDS ORDERED: PROCHLORPERAZINE MALEATE 10 MG TAB PO PRN (23:06)
[2024-07-12] MEDS ORDERED: ALBUT/IPRATROP 3MG/0.5MG NEB 3 ML VIAL NEB PRN (23:06)
[2024-07-12] MEDS ORDERED: ALBUTEROL HFA 8 GM INHALER INH PRN (23:06)
[2024-07-12] MEDS ORDERED: ONDANSETRON INJ 2 MG/ML 2 ML VIAL IV PRN (23:06)
[2024-07-12] MEDS ORDERED: [UNRECOGNIZED DRUG - OTHER] PO SCH (23:06)
[2024-07-12 23:26] LABS: Appearance Urine Cloudy (Clear); Bacteria Urine Automated None Seen (None Seen); Bilirubin Urine Negative (Negative); Blood Urine Negative (Negative); Calcium Oxalate Crystals Urine Present (None Prsent); Color Urine Yellow; Epithelial Cell Urine Auto 0-2 /hpf (0-2); Glucose Urine UA Negative (Negative); Ketones Urine Trace (Negative); Leukocyte Esterase Urine Trace (Negative); Nitrite Urine Negative (Negative); Protein Urine 1+ (Negative); RBC Urine Automated 0-2 /hpf (0-2); Urobilinogen Urine Negative (Negative); WBC Urine Automated 0-5 /hpf (0-5); pH Urine 7.5 (4.5-7.5)
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
[2024-07-13] MEDS: HEPARIN SOD 5,000 UNIT/0.5 ML VIAL SQ SCH (00:31)
[2024-07-13] MEDS: CHOLECALCIFEROL 10 MCG (400 UNITS) TAB PO SCH (00:31)
[2024-07-13] MEDS: oxyCODONE HCL 20 MG TABCR (OxyCONTIN) PO SCH (00:37)
[2024-07-13] MEDS: PAMIDRONATE DISODIUM 60 MG in SODIUM CHLORIDE 0.9% 1,000 ML IV SCH (00:37)
[2024-07-13] MEDS: HYDROmorphone INJ 1 MG/ML SYRINGE IV PRN (02:20)
--- OUTSIDE RECORDS SUMMARY | 2024-07-13 03:14 | External Medical Summary | Summary of Care ---
Author Name Unknown Organization [facility] Address [address] [place] [address] Phone [phone] Care Team Providers Care Inspector Floor Sub Assembly Name Role Phone Lyssa Platt Primary Care Provid er Reason for Visit * Reason Comments Short of Breath * Auth/Cert Specialty Diagnoses / Procedures Referred By Contac t Referred To Contact [facility] [address] [place] [address] Phone: [phone] Emergency Medicine [facility] [address] [place] [address] Referral ID Status Reason Start Date Expiration Date Visits Re quested Visits Authorized [id number] Encounter Details Date Type Department Care Team ([facility] st Contact Info) Description 07/07/2024 11:03 AM EST - 07/07/2024 5:40 PM EST Emergency [facility] Emergency Department ([facility]) [address] [place], [place] [id number] Flores Thayer MD [address], [place] [id number] Mediastinitis (Primary Dx); Screening for cardiovascular condition; Esophageal perforation; Pneumomediastinum (HCC) Discharge Disposition: Short Term Hospital Allergies Active Allergy Reactions Criticality Noted Date Comments Oxycodone-Acetaminophen Nausea/vomiting 008 documented as of this encounter (statuses as of 07/08/2024) Medications Medication Sig Dispensed Refills Start Date End Date Status GABAPENTIN 300 MG PO TABS three tablets once daily as needed Suspended FLEXERIL 10 MG PO TABS as directed as needed Suspended LISINOPRIL-HYDROCH LOROTHIAZIDE 20-12.5 MG PO TABS 1 tablet daily Schmitz spended HYDROCODONE-ACETAM INOPHEN 7.5-325 MG PO TABS 4 times a day (lower back pain) Suspended Albuterol Sulfate (PROVENTIL HFA) 108 (90 Base) MCG/ACT AERSIndications:LR TI (lower respiratory tract infection) Inhale 2 Puffs by mouth every 4 hours as needed for Cough, Shortness of Breath or Wheezing. 1 Inhaler 07/13/2019 Suspended Additional Information documented as of this encounter (statuses as of 07/08/2024) Active Problems Problem Noted Date Diagnosed Date Pneumonitis 07/07/2024 Hemoptysis 07/07/2024 Atypical pneumonia 01/03/2023 Mediastinal lymphadenopathy 01/03/2023 Vapes non-nicotine containing substance 01/04/20 23 COPD exacerbation 01/03/2023 COPD, severity to be determined 01/03/2023 Nondependent alcohol abuse, in remission 023 Tobacco user 01/02/2023 Acute respiratory failure with hypoxia 3 Pleural effusion 01/02/2023 COPD (chronic obstructive pulmonary disease) 02/2022 Mixed hyperlipidemia 05/10/2022 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 HTN, goal below 140/90 10/22/2001 Major depressive disorder 10/22/2001 Overview: ICD-10 update of inactive term Major depressive disorder 10/22/2001 Overview: ICD-10 update of inactive term HTN, goal below 140/90 10/22/2001 documented as of this encounter (statuses as of 07/08/2024) Immunizations Name Administration Dates Next Due Pneumococcal Conjugate Vacci ne, 20-valent ([id number]) 2023(Deferred: Patient Refused - Pt refusing vaccine) TDAP (age 10 and older)(Boostrix) 03/18/2021 documented as of this encounter Social History Tobacco Use Types Packs/Day Years Used Date Smoking Tobacco: Every Day Cigarettes 1 12 Smokeless Tobacco: Never Alcohol Use Standard Drinks/Week Comments No 0 (1 standard drink = 0.6 oz pur e alcohol) Utilities Answer Date Recorded Do you have trouble paying y our heating, water, or electric bill? (Adult - for ages 18 years and over) Not on file 02/20/2024 Is your family able to pay t he heat, water, or electric bill? (Household - for ages 0-17 years) Not on file 02/20/2024 Does your family have access to good internet? (Household - for ages 0-17 years) Not on file 02/20/2024 Social Connections Answer Date Recorded How often do you feel lonely or isolated from those around you? (Adult - for ages 18 years and over) Not on file 02/20/2024 Sex and Gender Information Value Date Recorded Sex Assigned at Male 01/03/2023 4:34 PM EDT Gender Identity Male 01/03/2023 4:34 PM EDT Sexual Orientation Straight 01/03/2023 4: 31 PM EDT Job Start Date Occupation Industry Not on file Not on file Not on file documented as of this encounter Last Filed Vital Signs Vital Sign Reading Time Taken Comments Blood Pressure 106/80 07/07/2024 5:15 PM EST Pulse 112 07/07/2024 5:15 PM EST Temperature 36.6 C (97.9 F) 07/07/2024 11:[address] Respiratory Rate 20 07/07/2024 5:15 PM EST Oxygen Saturation 97% 07/07/2024 5:15 PM EST Inhaled Oxygen Concentration - - Weight 65.8 kg (145 lb) 07/07/2024 11:04 AM EST Height 182.9 cm (6') 07/07/2024 11:04 AM EST Body Mass Index 19.67 07/07/2024 11:04 AM EST documented in this encounter Functional Status Functional Status Response Date of Assess ment Are you deaf or do you have serious difficulty h earing? No 01/02/2023 Are you blind or do you have serious difficulty seeing, even when wearing glasses? No 01/02/2023 Do you have serious difficul ty walking or climbing stairs? (5 years old or older) No 01/02/2023 Do you have difficulty dress ing or bathing? (5 years old or older) No 01/02/2023 Because of a physical, menta l, or emotional condition, do you have difficulty doing errands alone such as visiting a doctor s office or shopping? (15 years old or older) No 01/03/20 23 Cognitive Status Response Date of Assessm ent Because of a physical, menta l, or emotional condition, do you have serious difficulty concentrating, remembering, or making decisions? (5 years old or older) No 01/02/2023 documented as of this encounter ED Notes * Stephanie Alford RN - 07/07/2024 11:08 AM EST Pt comes in by ALS with EMS from home for complaints of shortness of breath that started this AM. Does have a hx of stage 4 lung CA. Went to the restroom to try and have a BM and became short of breath and anxious. Did use albuterol inhaler without relief. Was 98-97% on RA for EMS. documented in this encounter Miscellaneous Notes * ED Fabric Machine Operator Note - Damian Shafer RN - 07/07/2024 5:28 PM EST Report called to Sharona GABRIEL at [facility]. * ED Fabric Machine Operator Note - Damian Shafer RN - 07/07/2024 5:18 PM EST Report given to PABLO for transport to [facility]. * ED Fabric Machine Operator Note - Damian Shafer RN - 07/07/2024 11:25 AM EST Patient arrives to the ED with complaints of shortness of breath that has been getting worse over the past several days. Relates having a hx of lung cancer in which his last radiation treatment was last Monday. Is scheduled to start chemotherapy on 07/09. Reports he follows up with Rona Natarajan for his cancer treatment during this assessment. Has been coughing up brown sputum since onset of worsening shortness of breath. Denies any known fevers associated with his current symptoms. Tachycardic and hypoxic upon arrival to the ED. ST on CCM with HR in the 120's. SpO2 noted to be 85% on room air. Oxygen applied via nasal cannula. Required 6L NC to maintain saturations greater than 90%. Denies wearing any oxygen at home. Assessment as charted in flowsheets. 20 gauge IV established in RAC. Labs drawn and sent. Bed low with side rails up and call alonso in reach. 1225: Patient complains of oxygen burning his nose at this time. Humidified air applied to nasal cannula. SpO2 noted to be 99% on 6L NC. Oxygen titrated down to 2L NC. Will continue to monitor. documented in this encounter Plan of Treatment Scheduled Orders Name Type Priority Associated Diagnoses Orde r Schedule EKG EKG STAT Screening for cardiovascular condition Perform Now for 1 Occurrences starting 07/07/2024 until 07/07/2024 Scheduled Procedures Name Priority Associated Diagnoses Date/Ti me COLONOSCOPY FLEXIBLE PROXIMAL DIAGNOSTIC Recall History of colon polyps Health Maintenance Due Date Last Done Comments DISCUSS TOBACCO CESSATION (REFER TO SMARTSET #3292) 1966 Depression Monitoring 1978 HIV Screening 1981 Albumin/Creatinine Ratio 01/05/1984 Alpha-1 Antitrypsin 01/05/1984 Hepatitis C Screening 01/05/1984 Cologuard 2011 Fecal Occult Blood Test 2011 Sigmoidoscopy 2011 Zoster Vaccines (1 of 2) 01/05/2016 Colonoscopy 12/13/2023 12/12/2018, 12/03, 09/11/2013, Additional history exists Colorectal Cancer Screening 12/13/2023 COVID-19 Vaccine ( season) 2024 Influenza Vaccine (FLU shot) (#1) 2024 GFR 07/07/2025 07/07/2024, 05/0 11/2022, 01/03/2023, Additional history exists O2 ASSESSMENT COMPLETED IN PAST YEAR FOR COPD 07/07/2025 07/07/2024 Lipid Panel 11/01/2027 11/01/2022, 10/06, 02/09/2016, Additional history exists DTap/Tdap Vaccines (2 - Td or Tdap) 03/18/2031 03/18/2021 Hepatitis B Vaccine Completed 01/11/2000, 01/11/2000, 08/12/1999, Additional history exists RETIRED - COLONOSCOPY-EVERY 5 YRS AGES 18-100 Discontinued 12/12/2018, 12/12/2018, 09/11/2013, Additional history exists Pneumococcal Vaccine: Pediatrics (0 to 5 Years) and At-Risk Patients (6 to 64 Years) Completed 01/23/2023 HPV (Gardasil) Vaccine Aged Out No lo nger eligible based on patient's age to complete this topic MENINGOCOCCAL (MENACTRA/MENVEO) Aged Out No longer eligible based on patient's age to complete this topic documented as of this encounter Medical Devices Not on filedocumented as of this encounter Procedures Procedure Name Priority Date/Time Associated Diagnosis Comments TROPONIN T, HIGH SENSITIVITY STAT 07/07/2024 2:53 PM EST LACTATE STAT 07/07/2024 2:[address] PULMONARY EMBOLUS W CONTRAST STAT 07/07/2024 2:30 PM EST BLOOD GAS, ARTERIAL STAT 07/07/2024 1 2:10 PM EST XR CHEST 2 VIEWS STAT 07/07/2024 11:4 0 AM EST RESPIRATORY PATHOGEN PANEL, PCR STAT 07/07/2024 11:24 AM EST EXTRA LIGHT BLUE TOP Routine 07/07/2024 11:22 AM EST DIFFERENTIAL, AUTOMATED STAT 07/07/2024 11:22 AM EST TROPONIN T, HIGH SENSITIVITY STAT 07/07/2024 11:22 AM EST PROCALCITONIN Add-on 07/07/2024 11:22 AM EST BNP (NT-PROBNP) STAT 07/07/2024 11:22 AM EST COMPREHENSIVE METABOLIC PANEL STAT 07/07/2024 11:22 AM EST D-DIMER Add-on 07/07/2024 11:22 AM EST CK Add-on 07/07/2024 11:22 AM EST CBC STAT 07/07/2024 11:22 AM EST PT INR STAT 07/07/2024 11:22 AM EST CBC STAT 07/07/2024 11:22 AM EST documented in this encounter Results * LACTATE (07/07/2024 2:53 PM EST) Pathologist [facility] Lactate 1.5 0.4 - 2.0 mmol/L 07/07/2024 3:26 PM EST LABORATORY [facility] Blood Venous blood specimen / Unknown Venipuncture / Unknown 07/07/2024 2:53 PM EST 07/07/2024 3:00 PM EST Flores Thayer MD LAB BLOOD ORDERA BLES LABORATORY [address] [address] * TROPONIN T, HIGH SENSITIVITY (07/07/2024 2:53 PM EST) [facility] Troponin T, High Sensitivity 15 <=22 ng/L 07/07/2024 3:25 PM EST LABORATORY [facility] Blood Venous blood specimen / Unknown Venipuncture / Unknown 07/07/2024 2:53 PM EST 07/07/2024 3:00 PM EST Flores Thayer MD LAB BLOOD ORDERA BLES Performing Organization Address City/[facility]/ZIP Co de Phone Number LABORATORY [address] [phone] * CT PULMONARY EMBOLUS W CONTRAST (07/07/2024 2:30 PM EST) Anatomical Region Laterality Modality Chest, Cardio, Body Computed Willam ography 07/07/2024 2:22 PM EST Addenda Addendum by Cassy Granger MD on 07/07/2024 3:44 PM EST THIS REPORT CONTAINS FINDINGS THAT MAY BE CRITICAL TO PATIENT CARE. The findings were verbally communicated via telephone conference with FLORES Moseley at 3:44 PM EST on 07/07/2024. The findings were acknowledged and understood. THIS DOCUMENT HAS BEEN ELECTRONICALLY SIGNED BY CASSY GRANGER MD Impressions 07/07/2024 3:37 PM EST IMPRESSION: 1. No pulmonary embolism. 3. Evidence of possible mediastinitis with erosion of the posterior faye and presence of pneumomediastinum, cannot exclude esophageal perforation. 2. Bibasilar tree-in-bud micronodularity and ground-glass opacities, more prominent in the left lower lung, concerning for aspiration pneumonia or pneumonitis. 4. New ill-defined hepatic hypodensities, with the largest lesion in the right hepatic lobe (10 cm), concerning for metastases. Further evaluation recommended. THIS DOCUMENT HAS BEEN ELECTRONICALLY SIGNED BY CASSY GRANGER MD Narrative 07/07/2024 3:37 PM EST PROCEDURE INFORMATION: Exam: CTA Chest With Contrast Exam date and time: 07/07/2024 2:22 PM Age: 59 years old Clinical indication: Other: SOB; Tachy; CA mets; Pulmonary embolism; Wells score > 4; No known/automatically detected potential contraindications to iodinated contrast TECHNIQUE: Imaging protocol: Computed tomographic angiography of the chest with contrast. Exam focused on the arteries. 3D rendering (Not supervised by radiologist): MIP and/or 3D reconstructed images were created by the technologist. Radiation optimization: All CT scans at this facility use at least one of these dose optimization techniques: automated exposure control; mA and/or kV adjustment per patient size (includes targeted exams where dose is matched to clinical indication); or iterative reconstruction. Contrast material: ISOVUE 370; Contrast volume: 80 ml; Contrast route: INTRAVENOUS (IV); COMPARISON: CT CHEST WO CONTRAST 01/02/2023 10:34 AM FINDINGS: Tubes, catheters and devices: Tubes, Catheters, and Devices: Left anterior chest wall infusion port with tip terminating in the right atrium. Pulmonary arteries: Adequate visualization to the subsegmental level; no evidence of pulmonary embolism. Aorta: Ascending aorta is normal in caliber. Trachea: Erosion noted in the posterior faye (series 14, image 113) with associated soft tissue density and locules of air along the mediastinum, concerning for mediastinitis. Subcarinal hypodense density with tiny air locules raises concern for pneumomediastinum versus esophageal perforation. Lungs: Bibasilar tree-in-bud micronodularity and ground-glass opacities, more pronounced in the left lower lung, suggesting aspiration pneumonia/pneumonitis. Mild bilateral perihilar soft tissue density observed. Pleural spaces: No pneumothorax or pleural effusion. Heart: Normal heart size; no cardiomegaly or pericardial effusion. Esophagus: Patulous and fluid-filled. Lymph nodes: No enlarged lymph nodes. Liver: New ill-defined hypodensities throughout the liver, with the largest in the right hepatic lobe measuring up to 10 cm. Bones/joints: No acute fractures or significant abnormalities. Soft tissues: Unremarkable. Procedure Note Cassy Granger MD - 07/07/2024 PROCEDURE INFORMATION: Exam: CTA Chest With Contrast Exam date and time: 07/07/2024 2:22 PM Age: 59 years old Clinical indication: Other: SOB; Tachy; CA mets; Pulmonary embolism; Wells score > 4; No known/automatically detected potential contraindications to iodinated contrast TECHNIQUE: Imaging protocol: Computed tomographic angiography of the chest withcontrast. Exam focused on the arteries. 3D rendering (Not supervised by radiologist): MIP and/or 3D reconstructed images were created by the technologist. Radiation optimization: All CT scans at this facility use at least one ofthese dose optimization techniques: automated exposure control; mA and/or kV adjustment per patient size (includes targeted exams where dose is matchedto clinical indication); or iterative reconstruction. Contrast material: ISOVUE 370; Contrast volume: 80 ml; Contrast route: INTRAVENOUS (IV); COMPARISON: CT CHEST WO CONTRAST 01/02/2023 10:34 AM FINDINGS: Tubes, catheters and devices: Tubes, Catheters, and Devices: Left anterior chest wall infusion port with tip terminating in the right atrium. Pulmonary arteries: Adequate visualization to the subsegmental level; no evidence of pulmonary embolism. Aorta: Ascending aorta is normal in caliber. Trachea: Erosion noted in the posterior faye (series 14, image 113) with associated soft tissue density and locules of air along the mediastinum, concerning for mediastinitis. Subcarinal hypodense density with tiny air locules raises concern for pneumomediastinum versus esophagealperforation. Lungs: Bibasilar tree-in-bud micronodularity and ground-glass opacities,more pronounced in the left lower lung, suggesting aspirationpneumonia/pneumonitis. Mild bilateral perihilar soft tissue density observed. Pleural spaces: No pneumothorax or pleural effusion. Heart: Normal heart size; no cardiomegaly or pericardial effusion. Esophagus: Patulous and fluid-filled. Lymph nodes: No enlarged lymph nodes. Liver: New ill-defined hypodensities throughout the liver, with thelargest in the right hepatic lobe measuring up to 10 cm. Bones/joints: No acute fractures or significant abnormalities. Soft tissues: Unremarkable. IMPRESSION IMPRESSION: 1. No pulmonary embolism. 3. Evidence of possible mediastinitis with erosion of the posteriorcarina and presence of pneumomediastinum, cannot exclude esophageal perforation. 2. Bibasilar tree-in-bud micronodularity and ground-glass opacities,more prominent in the left lower lung, concerning for aspiration pneumonia or pneumonitis. 4. New ill-defined hepatic hypodensities, with the largest lesion in the right hepatic lobe (10 cm), concerning for metastases. Further evaluation recommended. THIS DOCUMENT HAS BEEN ELECTRONICALLY SIGNED BY CASSY GRANGER MD Flores Thayer MD RAD CT * (ABNORMAL) BLOOD GAS, ARTERIAL (07/07/2024 12:10 PM EST) Temperature 37.0 C 07/07/2024 12:17 PM EST LABORATORY [facility] pH, Arterial 7.408 7.350 - 7.450 units 07/07/2024 12:17 PM EST LAB[facility] pCO2, Arterial 41.1 35.0 - 45.0 mmHg 07/07/2024 12:17 PM EST [facility] pO2, Arterial 111.0(H) 75.0 - 100.0 mmHg 07/07/2024 12:17 PM EST [facility] Base Excess, Arterial 1.1 -2.0 - 2.0 mmol/L 07/07/2024 12:17 PM EST LAB[facility] HGB 11.7(L) 14.0 - 16.8 g/dL 07/07/2024 12:17 PM EST [facility] Oxyhemoglobin, Arterial 95.3 94.0 - 99.0 % total Hgb 07/07/2024 12:17 PM EST LAB[facility] Carboxyhemoglob in, Whole Blood 2.7(H) <=1.5 % total Hgb 07/07/2024 12:17 PM EST LAB[facility]AT[facility] Comment:Smokers: 0-9.0 % Methemoglobin, Whole Blood 0.5 <=1.5 % total Hgb 07/07/2024 12:17 PM EST LAB[facility] Reduced Hemoglobin, Arterial 1.5 0.0 - 5.0 % total Hgb 07/07/2024 12:17 PM EST [facility] O2 Content, Arterial 15.8 15.0 - 24.0 %vol 07/07/2024 12:17 PM EST LAB[facility] FiO2 Not Provided % 07/07/2024 12:17 PM EST [facility] O2 Flow, Arterial 5 L/min 07/07/2024 12:17 PM EST [facility] Bicarbonate, Whole Blood 25.4 23.0 - 31.0 mmol/L 07/07/2024 12:17 PM EST LAB[facility] Blood Arterial blood specimen / Unknown Arterial Puncture / Unknown 07/07/2024 12:10 PM EST 07/07/2024 12:13 PM EST Flores Thayer MD LAB BLOOD ORDERA BLES LAB[facility] [address] [place] [address] * XR CHEST 2 VIEWS (07/07/2024 11:40 AM EST) Anatomical Region Laterality Modality Chest Digital Radiogra phy 07/07/2024 11:3 1 AM EST Impressions 07/07/2024 12:43 PM EST IMPRESSION: Deep left sulcus. Recommend CT chest. THIS DOCUMENT HAS BEEN ELECTRONICALLY SIGNED BY CHARLA CALDERA MD Narrative 07/07/2024 12:43 PM EST PROCEDURE INFORMATION: Exam: XR Chest Exam date and time: 07/07/2024 11:31 AM Age: 59 years old Clinical indication: Other: Chest pain TECHNIQUE: Imaging protocol: Radiologic exam of the chest. Views: 2 views. COMPARISON: DX XR CHEST 2 VIEWS 04/22/2023 10:38 AM FINDINGS: Tubes, catheters and devices: Left chest wall Port-A-Cath tip projects over the SVC.. Lungs: Unremarkable. No consolidation. Pleural spaces: There is a deep sulcus on the left. Heart/Mediastinum: Unremarkable. No cardiomegaly. Bones/joints: Unremarkable. Procedure Note Charla Caldera MD - 07/07/2024 PROCEDURE INFORMATION: Exam: XR Chest Exam date and time: 07/07/2024 11:31 AM Age: 59 years old Clinical indication: Other: Chest pain TECHNIQUE: Imaging protocol: Radiologic exam of the chest. Views: 2 views. COMPARISON: DX XR CHEST 2 VIEWS 04/22/2023 10:38 AM FINDINGS: Tubes, catheters and devices: Left chest wall Port-A-Cath tip projectsover the SVC.. Lungs: Unremarkable. No consolidation. Pleural spaces: There is a deep sulcus on the left. Heart/Mediastinum: Unremarkable. No cardiomegaly. Bones/joints: Unremarkable. IMPRESSION IMPRESSION: Deep left sulcus. Recommend CT chest. THIS DOCUMENT HAS BEEN ELECTRONICALLY SIGNED BY CHARLA CALDERA MD Flores Thayer MD RADIOLOGY (RAD G ENERAL) * RESPIRATORY PATHOGEN PANEL, PCR (07/07/2024 11:24 AM EST) Adenovirus by PCR Negative Negative 024 12:25 PM EST LABORATORY [facility] Coronavirus 229E by PCR Negative Negative 07/07/2024 12:25 PM EST LAB[facility] Coronavirus HKU1 by PCR Negative Negative 07/07/2024 12:25 PM EST LAB[facility] Coronavirus NL63 by PCR Negative Negative 07/07/2024 12:25 PM EST LAB[facility] Coronavirus OC43 by PCR Negative Negative 07/07/2024 12:25 PM EST LAB[facility] Coronavirus SARS-CoV-2 by PCR Negative Negative 07/07/2024 12:25 PM EST LABORATORY [facility] Human Metapneumovirus by PCR Negative Negative 07/07/2024 12:25 PM EST LABORATORY [facility] Rhinovirus/Enterovi vin by PCR Negative Negative 07/07/2024 12:25 PM EST LABORATORY [facility] Influenza A Virus by PCR Negative Negative 07/07/2024 12:25 PM EST LABORATORY [facility] Influenza B Virus by PCR Negative Negative 07/07/2024 12:25 PM EST LABORATORY [facility] Parainfluenza Virus 1 by PCR Negative Negative 07/07/2024 12:25 PM EST LABORATORY [facility] Parainfluenza Virus 2 by PCR Negative Negative 07/07/2024 12:25 PM EST LABORATORY [facility] Parainfluenza Virus 3 by PCR Negative Negative 07/07/2024 12:25 PM EST LABORATORY [facility] Parainfluenza Virus 4 by PCR Negative Negative 07/07/2024 12:25 PM EST LABORATORY [facility] Respiratory Syncytial Virus by PCR Negative Negative 07/07/2024 12:25 PM EST LABORATORY [facility] Bordetella pertussis by PCR Negative Negative 07/07/2024 12:25 PM EST LABORATORY [facility] Chlamydia pneumoniae by PCR Negative Negative 07/07/2024 12:25 PM EST LABORATORY [facility] Mycoplasma pneumoniae by PCR Negative Negative 07/07/2024 12:25 PM EST LABORATORY [facility] Bordetella parapertussis by PCR Negative Negative 07/07/2024 12:25 PM EST LABORATORY [facility] Comment: The primers that detect Rhinovirus may cross react with some Enterorviruses. The validation of bronchial specimens, tracheal aspirates, and throats for this assay was developed and performance characteristics determined by [employer]. The validation of alternate specimen types has not been cleared or approved by the U.S. Food and Drug Administration (FDA). It has been determined that such clearance or approval is not necessary. Upper Respiratory Mid-turbinate nasal swab / Unknown Non-blood Collection / Unknown 07/07/2024 11:24 AM EST 07/07/2024 11:29 AM EST Flores Thayer MD LAB MICRO - GENE RAL ORDERABLES LABORATORY [address] [address] * CK (07/07/2024 11:22 AM EST) Pathologist [facility] CK 43 39 - 308 U/L 07/07/2024 1:15 PM EST LABORATORY [facility] Blood Venous blood specimen / Unknown Venipuncture / Unknown 07/07/2024 11:22 AM EST 07/07/2024 11:29 AM EST Flores Thayer MD LAB BLOOD ORDERA BLES Performing Organization Address [facility] Co de Phone Number LABORATORY [address] [address] * (ABNORMAL) PROCALCITONIN (07/07/2024 11:22 AM EST) [facility] Procalcitonin 0.13(H) <0.10 ng/mL 07/07/2024 2:11 PM EST LABORATORY [facility] Blood Venous blood specimen / Unknown Venipuncture / Unknown 07/07/2024 11:22 AM EST 07/07/2024 11:29 AM EST Narrative LABORATORY [facility] - 07/07/2024 2:11 PM EST Less than 0.5 ng/mL: Low risk for progression to sepsis. Review patients condition for localized infections. 0.5 to 2.0 ng/mL: Intermediate risk for progresion to sepsis. Review underlying conditions. Recommend repeat PCT after 6 hours has elapsed. Greater than 2.0 ng/mL: high risk for progression to sepsis unless other causes are known. Flores Thayer MD LAB BLOOD ORDERA BLES Performing Organization Address [facility]/ZIP Co de Phone Number LABORATORY [address] [address] * (ABNORMAL) D-DIMER (07/07/2024 11:22 AM EST) [facility] D-Dimer 2.20(H) <0.50 ug/mL FEU 07/07/2024 12:01 PM EST LABORATORY [facility] Blood Venous blood specimen / Unknown Venipuncture / Unknown 07/07/2024 11:22 AM EST 07/07/2024 11:29 AM EST [facility] LABORATORY [facility] - 07/07/2024 12:01 PM EST Rheumatoid factor at a level above 50 IU/mL may lead to an overestimation of the D-dimer level. A normal D-dimer result (<0.50 ug/mL FEU) has a negative predictive value of approximately 95% for the exclusion of acute pulmonary embolism (PE) or deep vein thrombosis when there is low or moderate pretest PE probability. Increased D-dimer values are abnormal but do not indicate a specific disease state and the D-dimer increase does not definitively correlate with clinical severity of disease. Flores Thayer MD LAB [place]LOOD [place] [address] * (ABNORMAL) DIFFERENTIAL, AUTOMATED (07/07/2024 11:22 AM EST) WBC 11.96(H) 4.00 - 10.80 K/uL 07/07/2024 11:32 AM EST LABORATORY [facility] Neutrophils % 85.2(H) 40.0 - 75.0 % 07/07/2024 11:32 AM EST LABORATORY [facility] Lymphocytes % 4.8(L) 18.0 - 42.0 % 07/07/2024 11:32 AM EST LABORATORY [facility] Monocytes % 8.7 1.0 - 11.0 % 07/07/2024 11:32 AM EST LABORATORY [facility] Eosinophils % 0.4 0.0 - 6.0 % 07/07/2024 11:32 AM EST LABORATORY [facility] Basophils % 0.4 0.0 - 2.0 % 07/07/2024 11:32 AM EST LABORATORY [facility] Immature Granulocytes % 0.5 0.0 - 2.0 % 07/07/2024 11:32 AM EST LABORATORY [facility] Absolute Neutrophils 10.18(H) 1.80 - 7.70 K/uL 07/07/2024 11:32 AM EST LABORATORY [facility] Absolute Lymphocytes 0.58(L) 1.00 - 4.80 K/ul 07/07/2024 11:32 AM EST LABORATORY [facility] Absolute Monocytes 1.04 0.00 - 1.10 K/uL 07/07/2024 11:32 AM EST LABORATORY GL Absolute Eosinophils 0.05 0.00 - 0.70 K/uL 07/07/2024 11:32 AM EST LABORATORY GL Absolute Basophils 0.05 0.00 - 0.20 K/uL 07/07/2024 11:32 AM EST LABORATORY GL Absolute Immature Granulocytes 0.06 0.00 - 0.20 K/uL 07/07/2024 11:32 AM EST LABORATORY GL Blood Venous blood specimen / Unknown Venipuncture / Unknown 07/07/2024 11:22 AM EST 07/07/2024 11:29 AM EST Flores Thayer MD LAB BLOOD ORDERA BLES Performing Organization Address City/State/[facility] Co de Phone Number LABORATORY [address] [address] * (ABNORMAL) CBC (07/07/2024 11:22 AM EST) WBC 11.96(H) 4.00 - 10.80 K/uL 07/07/2024 11:32 AM EST LABORATORY [facility] RBC 4.54 4.50 - 5.25 M/uL 07/07/2024 11:32 AM EST LABORATORY [facility] HGB 12.7(L) 14.0 - 16.8 g/dL 07/07/2024 11:32 AM EST LABORATORY [facility] HCT 40.3 40.0 - 48.4 % 07/07/2024 11:32 AM EST LABORATORY [facility] MCV 88.8 82.0 - 99.5 fL 07/07/2024 11:32 AM EST LABORATORY [facility] MCH 28.0 27.0 - 34.0 pg 07/07/2024 11:32 AM EST LABORATORY [facility] MCHC 31.5 32.0 - 36.0 g/dL 07/07/2024 11:32 AM EST LABORATORY [facility] RDW 15.5 11.5 - 15.5 % 07/07/2024 11:32 AM EST LABORATORY [facility] PLT 379 140 - 400 K/uL 07/07/2024 11:32 AM EST LABORATORY [facility] MPV 9.4 6.6 - 11.1 fL 07/07/2024 11:32 AM EST LABORATORY [facility] nRBCs 0 <=0 /100 WBCs 07/07/2024 11:32 AM EST LABORATORY [facility] Blood Venous blood specimen / Unknown Venipuncture / Unknown 07/07/2024 11:22 AM EST 07/07/2024 11:29 AM EST Flores Thayer MD LAB BLOOD ORDERA BLES Performing Organization Address City/[facility]/ZIP Co de Phone Number LABORATORY [address] [address] * PT INR (07/07/2024 11:22 AM EST) Prothrombin Time 13.8 11.6 - 15.2 seconds 07/07/2024 11:45 AM EST LABORATORY [facility] INR 1.1 0.8 - 1.2 07/07/2024 11:45 AM EST LABORATORY [facility] Blood Venous blood specimen / Unknown Venipuncture / Unknown 07/07/2024 11:22 AM EST 07/07/2024 11:29 AM EST Narrative LABORATORY [facility] - 07/07/2024 11:45 AM EST Warfarin Therapy INR: 2.0-3.0 conventional anticoagulation INR: 2.5-3.5 high intensity anticoagulation Flores Thayer MD LAB BLOOD ORDERA BLES Performing Organization Address [facility] de Phone Number LABORATORY [address] [address] * TROPONIN T, HIGH SENSITIVITY (07/07/2024 11:22 AM EST) Troponin T, High Sensitivity 20 <=22 ng/L 07/07/2024 1:08 PM EST LABORATORY [facility] Blood Venous blood specimen / Unknown Venipuncture / Unknown 07/07/2024 11:22 AM EST 07/07/2024 11:29 AM EST Flores Thayer MD LAB BLOOD ORDERA BLES LABORATORY [facility] [address] [place] [address] * (ABNORMAL) BNP, NT-PRO (07/07/2024 11:22 AM EST) BNP, NT-Pro 331(H) <300 pg/mL 07/07/2024 12:07 PM EST LABORATORY [facility] Blood Venous blood specimen / Unknown Venipuncture / Unknown 07/07/2024 11:22 AM EST 07/07/2024 11:29 AM EST Narrative LABORATORY [facility] - 07/07/2024 12:07 PM EST Exclude Heart Failure: <300 pg/mL Diagnose Heart Failure: Age <50 yr: >450 pg/mL 50-75 yr: >900 pg/mL >75 yr: >1800 pg/mL GFR is 30-59 mL/min: >1200 pg/mL or Age-adjusted values GFR <30 mL/min: do not use, not reliable Prognostic threshold: 1000 pg/mL Flores Thayer MD LAB BLOOD ORDERA BLES LABORATORY [address] [id number] * (ABNORMAL) COMPREHENSIVE METABOLIC PANEL (07/07/2024 11:22 AM EST) Pathologist [facility] BUN 17 6 - 20 mg/dL 07/07/2024 12:26 PM EST LABORATORY GL CREATININE 1.0 0.6 - 1.2 mg/dL 07/07/2024 12:26 PM EST LABORATORY GL EGFR 83 >=60 mL/min 07/07/2024 12:26 PM EST LABORATORY GL Comment:eGFR is calculated b ased on the CKD-EPI 2020 equation. SODIUM 131(L) 135 - 146 mmol/L 07/07/2024 12:26 PM EST LABORATORY [facility] POTASSIUM 3.9 3.5 - 5.1 mmol/L 07/07/2024 12:26 PM EST LABORATORY [facility] CHLORIDE 95(L) 98 - 107 mmol/L 07/07/2024 12:26 PM EST LABORATORY [facility] CO2 22 22 - 32 mmol/L 07/07/2024 12:26 PM EST LABORATORY [facility] ANION GAP 14 7 - 15 mmol/L 07/07/2024 12:26 PM EST LABORATORY [facility] GLUCOSE 149(H) 70 - 120 mg/dL 07/07/2024 12:26 PM EST LABORATORY [facility] Albumin 3.7(L) 3.8 - 5.0 g/dL 07/07/2024 12:26 PM EST LABORATORY [facility] AST 33 10 - 50 U/L 07/07/2024 12:26 PM EST LABORATORY [facility] Alkaline Phosphatase 123 35 - 130 U/L 07/07/2024 12:26 PM EST LABORATORY [facility] Bilirubin, Total 0.3 <=1.2 mg/dL 07/07/2024 12:26 PM EST LABORATORY [facility] CALCIUM 11.9(H) 8.4 - 10.2 mg/dL 07/07/2024 12:26 PM EST LABORATORY [facility] Protein 7.4 6.0 - 8.3 g/dL 07/07/2024 12:26 PM EST LABORATORY [facility] ALT 9(L) 10 - 50 U/L 07/07/2024 12:26 PM EST LABORATORY [facility] Blood Venous blood specimen / Unknown Venipuncture / Unknown 07/07/2024 11:22 AM EST 07/07/2024 11:29 AM EST Flores Thayer MD LAB BLOOD ORDERA BLES Performing Organization Address City/[facility]/ZIP Co de Phone Number LABORATORY [address] [address] * EXTRA LIGHT BLUE TOP (07/07/2024 11:22 AM EST) Blood Venous blood specimen / Unknown Venipuncture / Unknown 07/07/2024 11:22 AM EST 07/07/2024 11:29 AM EST Flores Thayer MD LAB BLOOD ORDERA BLES Performing Organization Address City/[facility]/ZIP Co de Phone Number LABORATORY [address] [phone] documented in this encounter Visit Diagnoses Diagnosis Mediastinitis- Primary Screening for cardiovascular condition Screening for other and unspecified cardiovascular conditions Esophageal perforation Perforation of esophagus Pneumomediastinum (HCC) Interstitial emphysema documented in this encounter Administered Medications Inactive Administered Medications - up to 3 most recent administrations Medication Order MAR Action Action Date Dose Rate Site HYDROmorphone (Dilaudid) inj 0.5 mg 0.5 mg, IV Push, ONCE, On 07/07/24 at 1430, For 1 dose Given 07/07/2024 1:57 PM EST 0.5 mg HYDROmorphone (Dilaudid) inj 0.5 mg 0.5 mg, IV Push, ONCE, On 07/07/24 at 1800, For 1 dose Given 07/07/2024 5:24 PM EST 0.5 mg Iopamidol (Isovue 370) inj 80 mL 80 mL, Intravenous, ONCE, On 07/07/24 at 1515, For 1 dose, Radiology Medication Routing (Non-IR) Given 07/07/2024 2:30 PM EST 80 mL NSS 0.9% 1,000 mL bolus infusion Intravenous, at 1,000 mL/hr Administer over 60 Minutes, Administer entire volume within 60 minutes or less., ONCE, 1 dose, On 07/07/24 at 1300 New Bag 07/07/2024 12:41 PM EST 1,000 mL 1000 mL/hr ondansetron (Zofran) inj 4 mg 4 mg, IV Push, ONCE, On 07/07/24 at 1415, For 1 dose Given 07/07/2024 1:57 PM EST 4 mg Piperacillin-Tazobactam (Zosyn) 4.5 g in 100 mL NSS ivpb (HALF hour infusion) IV Piggyback, 4.5 g, ONCE, 1 dose, On 07/07/24 at 1615, Administer over 30 Minutes New Bag 07/07/2024 4:03 PM EST 4.5 g 210 mL/hr Vancomycin (Vancocin) 1750 mg in NSS 500 mL 1,750 mg, IV Piggyback, ONCE, 1 dose, On 07/07/24 at 1615 New Bag 07/07/2024 4:46 PM EST 1,750 mg 283.75 mL/hr documented in this encounter Active and Recently Administered Medications Due to Daylight Saving Time, this section may contain times in both EDT and EST. Scheduled Medication Order 07/05/2024 07/06/2024 07/07/2024 HYDROmorphone (Dilaudid) inj 0.5 mg (COMPLETED) 0.5 mg, IV Push, ONCE, On 07/07/24 at 1430, For 1 dose 1357 (Given - Provid er: Damian Shafer RN) HYDROmorphone (Dilaudid) inj 0.5 mg (COMPLETED) 0.5 mg, IV Push, ONCE, On 07/07/24 at 1800, For 1 dose 1724 (Given - Provid er: Stephanie Alford RN) Iopamidol (Isovue 370) inj 80 mL (COMPLETED) 80 mL, Intravenous, ONCE, On 07/07/24 at 1515, For 1 dose, Radiology Medication Routing (Non-IR) 1430 (Given - Provid er: Ginny Bonds, RT) NSS 0.9% 1,000 mL bolus infusion (COMPLETED) Intravenous, at 1,000 mL/hr Administer over 60 Minutes, Administer entire volume within 60 minutes or less., ONCE, 1 dose, On 07/07/24 at 1300 1241 (New Bag - Prov ider: Damian Shafer RN)1350 (Stopped - Provider: Temitope Farah RN) ondansetron (Zofran) inj 4 mg (COMPLETED) 4 mg, IV Push, ONCE, On 07/07/24 at 1415, For 1 dose 1357 (Given - Provid er: Damian Shafer RN) Piperacillin-Tazobactam (Zosyn) 4.5 g in 100 mL NSS ivpb (HALF hour infusion) (COMPLETED) IV Piggyback, 4.5 g, ONCE, 1 dose, On 07/07/24 at 1615, Administer over 30 Minutes 1603 (New Bag - Prov ider: Damian Shafer RN)1635 (Stopped - Provider: Damian Shafer RN) Vancomycin (Vancocin) 1750 mg in NSS 500 mL 1,750 mg, IV Piggyback, ONCE, 1 dose, On 07/07/24 at 1615 1646 (New Bag - Prov ider: Damian Shafer RN) documented in this encounter Additional Health Concerns Infection Onset Date Last Indicated Resolved Time Respiratory Rule-Out 07/07/2024 07/07/2024 024 12:25 PM EST COVID-19 Rule-Out 07/07/2024 07/07/2024 07/07/2024 12:25 PM EST documented as of this encounter Advance Directives * No Code (Latest Code Status on File) Date Activated Date Inactivated Comments 07/07/2024 8:01 PM This order ref lects the patients wishes and were consensually agreed upon. Question Answer Comments Discussion of Advance Directives occurred with: Patient Does the patient have a Living Will? No Does the patient have Health Care Power of Attor fran? No * Full Code Date Activated Date Inactivated Comments 07/07/2024 7:24 PM 07/07/2024 8:01 PM This order r eflects the patients wishes and were consensually agreed upon. Question Answer Comments Discussion of Advance Directives occurred with: Patient * Full Code Date Activated Date Inactivated Comments 01/02/2023 9:51 AM 2023 4:09 PM This order ref lects the patients wishes and were consensually agreed upon. Question Answer Comments Discussion of Advance Directives occurred with: Patient Care Teams Inspector Floor Sub Assembly Relationship Specialty Start Date End Date Lyssa Platt CRNP [address] [place] [address] PCP - General Nurse Practitioner 07/02/13 documented as of this encounter
--- OUTSIDE RECORDS SUMMARY | 2024-07-13 03:14 | External Medical Summary ---
Author Name Unknown Address Unknown Organization K1F:LABORATORY [facility] - [address] [place] [address] Laboratory Report Ordering Provider Test Date Status TROY TANNER 07/07/2024 12:10:27 Final Observation Date Value Abnormality Reference (Units ) Status Body temperature 07/07/2024 12:10:27 37.0 (C) Final pH of Arterial blood 07/07/2024 12:10:27 7.408 7.350-7.450 (units) Final Carbon dioxide [Partial pressure] in Arterial blood 07/07/2024 12:10:27 41.1 35.0-45.0 (mmHg) Final Oxygen [Partial pressure] in Arterial blood 07/07/2024 12:10:27 111.0 Above high normal 75.0-100.0 (mmHg) Final Base excess, Arterial 07/07/2024 12:10:27 1.1 -2.0-2.0 (mmol/L) Final Hemoglobin [Mass/volume] in Blood by Oximetry 07/07/2024 12:10:27 11.7 Below low normal 14.0-16.8 (g/dL) Final Oxyhemoglobin, Arterial (FO2HB) 07/07/2024 12:10:27 95.3 94.0-99.0 (% total Hgb) Final Carboxyhemoglobin 07/07/2024 12:10:27 2.7 Above high normal <=1.5 (% total Hgb) Final Smokers: 0-9.0 % Methemoglobin 07/07/2024 12:10:27 0.5 <= 1.5 (% total Hgb) Final Deoxyhemoglobin/Hemoglobin .total in Arterial blood 07/07/2024 12:10:27 1.5 0.0 -5.0 (% total Hgb) Final Oxygen content in Arterial blood 07/07/2024 12:10:27 15.8 15.0-24.0 (%vol) Silvia l Oxygen/Total gas setting [Volume Fraction] Ventilator 07/07/2024 12:10:27 Not Provided (%) Final O2 FLOW, ARTERIAL - [facility] 07/07/2024 12:10:27 5 (L/min) Final Bicarbonate, Venous, POC (i-STAT) 07/07/2024 12:10:27 25.4 23.0-31.0 (mmol/L) Fi nal Performing Location LABORATORY [facility] - [address] [place], [place] [address]. [place] [address]
--- OUTSIDE RECORDS SUMMARY | 2024-07-13 03:14 | External Medical Summary ---
Author Name Unknown Address Unknown Organization K1F:LABORATORY [facility] - [address] [place] [address] Laboratory Report Ordering Provider Test Date Status TROY TANNER 07/07/2024 11:22:07 Final Observation Date Value Abnormality Reference (Units ) Status BUN 07/07/2024 11:22:07 17 6-20 (mg/dL) Final Creatinine 07/07/2024 11:22:07 1.0 0.6-1.2 (mg/dL) Final Glomerular filtration rate/1.73 sq M.predicted [Volume Rate/Area] in Serum, Plasma or Blood by Creatinine-based formula (CKD-EPI) 07/07/2024 11:22:07 83 >=60 (mL/min) Final eGFR is calculated based on the CKD-EPI 2020 equation. Sodium 07/07/2024 11:22:07 131 Below low normal 135 -146 (mmol/L) Final Potassium 07/07/2024 11:22:07 3.9 3.5-5.1 (m mol/L) Final Cl 07/07/2024 11:22:07 95 Below low normal 98- 107 (mmol/L) Final CO2 07/07/2024 11:22:07 22 22-32 (mmo l/L) Final Anion gap 07/07/2024 11:22:07 14 7-15 (mmol /L) Final Glucose 07/07/2024 11:22:07 149 Above high normal 70 -120 (mg/dL) Final Albumin 07/07/2024 11:22:07 3.7 Below low normal 3.8 -5.0 (g/dL) Final AST (Aspartate aminotransferase) 07/07/2024 11:22:07 33 10-50 (U/L) Fin al Alk Phos 07/07/2024 11:22:07 123 35-130 (U/ L) Final Bilirubin, Total 07/07/2024 11:22:07 0.3 <=1 .2 (mg/dL) Final Calcium 07/07/2024 11:22:07 11.9 Above high normal 8. 4-10.2 (mg/dL) Final Protein 07/07/2024 11:22:07 7.4 6.0-8.3 (g /dL) Final ALT (Alanine aminotransferase) 07/07/2024 11:22:07 9 Below low normal 10-50 (U/L) Final Performing Location LABORATORY [facility] - [facility] [address] [place] [address]
--- OUTSIDE RECORDS SUMMARY | 2024-07-13 03:14 | External Medical Summary ---
Author Name Unknown Address Unknown Organization K1F:LABORATORY [facility] - [address] [facility] [place] [address] Laboratory Report Ordering Provider Test Date Status EILEEN TANNERVASQUEZ 07/07/2024 11:24:14 Final SYMPTOMATIC Observation Date Value Abnormality Reference (Units ) Status Adenovirus DNA [Presence] in Nasopharynx by HECTOR with non-probe detection 07/07/2024 11:24:14 Negative Negative Final Human coronavirus 229E RNA [Presence] in Nasopharynx by HECTOR with non-probe detection 07/07/2024 11:24:14 Negative Negative Final Human coronavirus HKU1 RNA [Presence] in Nasopharynx by HECTOR with non-probe detection 07/07/2024 11:24:14 Negative Negative Final Human coronavirus NL63 RNA [Presence] in Nasopharynx by HECTOR with non-probe detection 07/07/2024 11:24:14 Negative Negative Final Human coronavirus OC43 RNA [Presence] in Nasopharynx by HECTOR with non-probe detection 07/07/2024 11:24:14 Negative Negative Final SARS-CoV-2 (COVID-19) RNA [Presence] in Nasopharynx by HECTOR with non-probe detection 07/07/2024 11:24:14 Negative Negative Final Human metapneumovirus RNA [Presence] in Nasopharynx by HECTOR with non-probe detection 07/07/2024 11:24:14 Negative Negative Final Rhinovirus+Enterovirus RNA [Presence] in Nasopharynx by HECTOR with non-probe detection 07/07/2024 11:24:14 Negative Negative Final Influenza virus A RNA [Presence] in Nasopharynx by HECTOR with non-probe detection 07/07/2024 11:24:14 Negative Negative Final Influenza virus B RNA [Presence] in Nasopharynx by HECTOR with non-probe detection 07/07/2024 11:24:14 Negative Negative Final Parainfluenza virus 1 RNA [Presence] in Nasopharynx by HECTOR with non-probe detection 07/07/2024 11:24:14 Negative Negative Final Parainfluenza virus 2 RNA [Presence] in Nasopharynx by HECTOR with non-probe detection 07/07/2024 11:24:14 Negative Negative Final Parainfluenza virus 3 RNA [Presence] in Nasopharynx by HECTOR with non-probe detection 07/07/2024 11:24:14 Negative Negative Final Parainfluenza virus 4 RNA [Presence] in Nasopharynx by HECTOR with non-probe detection 07/07/2024 11:24:14 Negative Negative Final Respiratory syncytial virus RNA [Presence] in Nasopharynx by HECTOR with non-probe detection 07/07/2024 11:24:14 Negative Negative Final Bordetella pertussis.pertussis toxin promoter region [Presence] in Nasopharynx by HECTOR with non-probe detection 07/07/2024 11:24:14 Negative Negative Final Chlamydophila pneumoniae DNA [Presence] in Nasopharynx by HECTOR with non-probe detection 07/07/2024 11:24:14 Negative Negative Final Mycoplasma pneumoniae DNA [Presence] in Nasopharynx by HECTOR with non-probe detection 07/07/2024 11:24:14 Negative Negative Final Bordetella parapertussis [id number] DNA [Presence] in Nasopharynx by HECTOR with non-probe detection 07/07/2024 11:24:14 Negative Negative Final
The primers that detect Rhinovirus may cross react with some Enterorviruses. The validation of bronchial specimens, tracheal aspirates, and throats for this assay was developed and performance characteristics determined by [employer]. The validation of alternate specimen types has not been cleared or approved by the U.S. Food and Drug Administration (FDA). It has been determined that such clearance or approval is not necessary. [facility] [address] [facility] [address]
--- OUTSIDE RECORDS SUMMARY | 2024-07-13 03:14 | External Medical Summary ---
Author Name Unknown Address Unknown Organization K01:LABORATORY [facility] - [facility] [address] [place] [address] Laboratory Report Ordering Provider Test Date Status CHRISTOS BAEZA 07/08/2024 06:27:00 Final Observation Date Value Abnormality Reference (Units ) Status WBC, Total 07/08/2024 06:27:00 7.82 4.00-10.80 (K/uL) Final RBC 07/08/2024 06:27:00 3.62 4.50-5.25 (M/uL) Final Hemoglobin 07/08/2024 06:27:00 10.1 Below low normal 14.0-16.8 (g/dL) Final HCT 07/08/2024 06:27:00 32.8 Below low normal 40.0-48.4 (%) Final MCV 07/08/2024 06:27:00 90.6 82.0-99.5 (fL) Final MCH 07/08/2024 06:27:00 27.9 27.0-34.0 (pg) Final MCHC 07/08/2024 06:27:00 30.8 32.0-36.0 (g/dL) Final RDW 07/08/2024 06:27:00 15.0 11.5-15.5 (%) Final Platelets 07/08/2024 06:27:00 268 140-400 (K/uL) Final MPV 07/08/2024 06:27:00 9.8 6.6-11.1 (fL) Final Nucleated erythrocytes/100 leukocytes [Ratio] in Blood by Automated count 07/08/2024 06:27:00 0 <=0 (/100 WBCs) Final Performing Location LABORATORY [facility] - [address] [place] [address]
--- OUTSIDE RECORDS SUMMARY | 2024-07-13 03:14 | External Medical Summary ---
Author Name Unknown Address Unknown Organization K01:LABORATORY [facility] - [address] [place] [address] Laboratory Report Ordering Provider Test Date Status CHRISTOS BAEZA 07/08/2024 06:27:00 Final Observation Date Value Abnormality Reference (Units ) Status BUN 07/08/2024 06:27:00 15 6-20 (mg/dL) Final Creatinine 07/08/2024 06:27:00 0.8 0.6-1.2 (mg/dL) Final Glomerular filtration rate/1.73 sq M.predicted [Volume Rate/Area] in Serum, Plasma or Blood by Creatinine-based formula (CKD-EPI) 07/08/2024 06:27:00 >90 >=60 (mL/min) Final eGFR is calculated based on the CKD-EPI 2020 equation. Sodium 07/08/2024 06:27:00 133 Below low normal 135 -146 (mmol/L) Final Potassium 07/08/2024 06:27:00 4.7 3.5-5.1 (m mol/L) Final Cl 07/08/2024 06:27:00 99 98-107 (mm ol/L) Final CO2 07/08/2024 06:27:00 26 22-32 (mmo l/L) Final Anion gap 07/08/2024 06:27:00 8 7-15 (mmol /L) Final Glucose 07/08/2024 06:27:00 151 Above high normal 70 -120 (mg/dL) Final Calcium 07/08/2024 06:27:00 10.4 Above high normal 8. 4-10.2 (mg/dL) Final Performing Location LABORATORY [facility] - [address] [place] [address]
--- OUTSIDE RECORDS SUMMARY | 2024-07-13 03:14 | External Medical Summary ---
Author Name Unknown Address Unknown Organization K1F:LABORATORY [facility] - [address] [place] [address] Laboratory Report Ordering Provider Test Date Status TROY TANNER 07/07/2024 11:22:07 Final Rheumatoid factor at a level above 50 [...] definitively correlate with clinical severity of disease. Observation Date Value Abnormality Reference (Units ) Status Fibrin D-dimer FEU [Mass/volume] in Platelet poor plasma by Immunoassay 07/07/2024 11:22:07 2.20 Above high normal <0.50 (ug/mL FEU) Final Performing Location LABORATORY [facility] [address] [facility] [address] [place] [address]
--- OUTSIDE RECORDS SUMMARY | 2024-07-13 03:14 | External Medical Summary ---
Author Name Unknown Address Unknown Organization K1F:LABORATORY [facility] - [address] [place] [address] Laboratory Report Ordering Provider Test Date Status TROY TANNER 07/07/2024 14:53:00 Final Observation Date Value Abnormality Reference (Units ) Status Troponin T 07/07/2024 14:53:00 15 <=22 (ng/ L) Final Performing Location LABORATORY [facility] - [address] [place] [address]
--- OUTSIDE RECORDS SUMMARY | 2024-07-13 03:14 | External Medical Summary | Summary of Care ---
Author Name Unknown Organization [facility] Address [address] [place] [address] Phone [phone] Care Team Providers Care Scientist Propagator Name Role Phone Kaylen Platt Robin PELAEZ Primary Care Provid er Reason for Visit * Auth/Cert Specialty Diagnoses / Procedures Referred By Obed boogie Referred To Contact Diagnoses mediastinitis, pneumomediastinum Clem Napier MD [address] [place] [address] Admissions [facility] [place] [address] [place] [address] Referral ID Status Reason Start Date Expiration Date Visits Re quested Visits Authorized [id number] Encounter Details Date Type Department Care Team (Latest Contact Info) Description 07/07/2024 7:10 PM EST - 07/08/2024 5:08 PM EST Hospital Encounter SICU GM, Surgical Intensive Care Unit, [facility] 4th Floor [address], [place] [id number] Clem Napier MD [address] [place], [place] [id number] Judy Denson DO [address] [place] [address] Discharge Disposition: Home with Services Allergies Active Allergy Reactions Criticality Noted Date Comments Oxycodone-Acetaminophen Nausea/vomiting 008 documented as of this encounter (statuses as of 07/09/2024) Medications Medication Sig Dispensed Refills Start Date End Date Status GABAPENTIN 300 MG PO TABS three tablets once daily as needed Active FLEXERIL 10 MG PO TABS as directed as needed Active LISINOPRIL-HYDROCHLO ROTHIAZIDE 20-12.5 MG PO TABS 1 tablet daily Active HYDROCODONE-ACETAMIN OPHEN 7.5-325 MG PO TABS 4 times a day (lower back pain) Active Albuterol Sulfate (PROVENTIL HFA) 108 (90 Base) MCG/ACT AERSIndications:LRTI (lower respiratory tract infection) Inhale 2 Puffs by mouth every 4 hours as needed for Cough, Shortness of Breath or Wheezing. 1 Inhaler 07/13/2019 Active documented as of this encounter (statuses as of 07/09/2024) Active Problems Problem Noted Date Diagnosed Date NSCLC metastatic to bone 07/08/2024 NSCLC metastatic to liver 07/08/2024 Non-small cell lung cancer (NSCLC) 07/08/2024 Severe protein-energy malnutrition 07/08/2024 Palliative care encounter 07/08/2024 Goals of care, counseling/discussion 07/08/2024 Cancer related pain 07/08/2024 Pneumonitis 07/07/2024 Atypical pneumonia 01/03/2023 Mediastinal lymphadenopathy 01/03/2023 Vapes non-nicotine containing substance 01/04/20 23 COPD, severity to be determined 01/03/2023 Nondependent [...] as of this encounter (statuses as of 07/09/2024) Resolved Problems Problem Noted Date Diagnosed Date Resolved Date Hemoptysis 07/07/2024 07/08/2024 COPD exacerbation 01/03/2023 07/08/2024 documented as of this encounter (statuses as of 07/09/2024) Immunizations Name Administration Dates Next Due Pneumococcal Conjugate Vacci ne, 20-valent ([id number]) 2023(Deferred: Patient Refused - Pt refusing vaccine) TDAP (age 10 and older)(Boostrix) 03/18/2021 documented as of this encounter Social History Tobacco Use Types Packs/Day Years Used Date Smoking Tobacco: Every Day Cigarettes 1 12 Smokeless Tobacco: Never Tobacco Cessation:Ready to Q uit: No; Counseling Given: Yes Alcohol Use Standard Drinks/Week Comments No 0 [...] Sign Reading Time Taken Comments Blood Pressure 114/81 07/08/2024 4:00 PM EST Pulse 96 07/08/2024 4:00 PM EST Temperature 36.6 C (97.8 F) 07/08/2024 4:00 PM ES T Respiratory Rate 19 07/08/2024 4:00 PM EST Oxygen Saturation 96% 07/08/2024 4:00 PM EST Inhaled Oxygen Concentration - - Weight 64.2 kg (141 lb 8.6 oz) 07/08/2024 6:00 A M EST Height 185.4 cm (6' 1") 07/07/2024 7:15 PM EST Body Mass Index 18.67 07/07/2024 7:15 PM EST documented in this encounter Functional Status Functional Status Response Date of Assess ment Are you deaf or do you have serious difficulty h earing? No 07/07/2024 Are you blind or do you have serious difficulty seeing, even when wearing glasses? No 07/07/2024 Do you have serious difficul ty walking or climbing stairs? (5 years old or older) Yes 07/07/2024 Do you have difficulty dress ing or bathing? (5 years old or older) Yes 07/07/2024 Because of a physical, menta l, or emotional condition, do you have difficulty doing errands alone such as visiting a doctor s office or shopping? (15 years old or older) Yes 07/07/20 Cognitive Status Response Date of Assessm ent Because of a physical, menta l, or emotional condition, do you have serious difficulty concentrating, remembering, or making decisions? 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) Severe protein-energy malnutrition (HCC) Pneumonitis Tobacco user COPD (chronic obstructive pulmonary disease) (HCC) HTN, goal below 140/90 Major depressive disorder Resolved Hospital Problems Diagnosis Date Resolved Hemoptysis 07/08/2024 COPD exacerbation (HCC) 07/08/2024 ADMISSION HISTORY & PHYSICAL EXAM (focused): Date of admission: 07/07/2024 PRESENTING PROBLEM: shortness of breath HISTORY OF PRESENT ILLNESS: Patient is a 59 yoM with a PMH significant for 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 Patient presented to [facility] with worsening SOB associated with brown mucus production. He was HDS saturing 85% on RA. Imaging at [facility] showed possible mediastinitis with erosionof the posterior faye and presence of pneumomediastinum but cannot r/o esophageal perforation. Labs significant for normal pH/CO2 (7.4/41/1), hyponatremia 131, normal lactate 1.5, elevated d-dimer 2.2, Hgb 12.7, WBC 11.9. He was admitted to SICU for close hemodynamic, respiratory monitoring and thoracic surgery consultation. Upon arrival to the unit, he was hemodynamically stable maintaining good saturations on nasal cannula. Wai is alert, oriented and appropriate. He has the capacity to answer all questions posed to him. He verbalized complaints of shortness of breath and a productive cough. He also reported chillsand bone pain. He denied nausea, vomiting, chest pain and/or abdominal pain. Vital Signs (Most Recent): BP 134/97 SPO2 97 Pulse 109 Resp 18 Height & Weight: Wt Readings from Last 3 Encounters: 07/07/24 65.8 kg (145 lb) 04/22/23 82.8 kg (182 lb 9.6 oz) 01/04/23 85.3 kg (188 lb) Weight change: There is no height or weight on file to calculate BMI. Physical Examination: General: Patient in no apparent distress. However ill appearing, HEENT: normocephalic, atraumatic Heart: regular rate and rhythm; S1 and S2 present; no murmurs, rubs or gallops. Pulmonary: Lung sounds are diminished with bilateral rhonchi. Abdomen: Soft, non-tender, non-distended. Normal bowel sounds and no rebound or guarding. MSK:Gross motor function intact Extremities: No pitting edema present at lower extremity bilaterally Skin: Molino, warm, no wounds or lesions present. Neuro: AAOx3. No gross motor or sensory deficits. 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 CT showing pneumomediastinum and tumor corrosion of the posterior faye. Patient was evaluated by thoracic surgery who discussed with patient and offered no surgical intervention. He was evaluated by palliative care, offered recommendations but the patient would like to continue his course and follow with his [facility] providers. Sharon Rascon from [facility] was contacted and she suggested placing a referral for home services. The patient remained hemodynamically stable throughout admission was discharged in stable condition. A goals of care discussion was held and the patient elected to be a no code going forward. Operations & Procedures: none Complications: N/A Labs: CHEMISTRY: BUN, Creatinine, GFR Estimated, Sodium, Potassium, Chloride, Carbon Dioxide, Glucose, Calcium (see below for most recent value): Lab Results Component Value Date/Time BUN 15 07/08/2024 06:27 AM BUN 16 08/18/2019 10:18 AM CREAT 0.8 07/08/2024 06:27 AM CREAT 0.8 08/18/2019 10:18 AM GFRESTIMATED >60.0 08/18/2019 10:18 AM NA 133 (L) 07/08/2024 06:27 AM NA 134 (L) 08/18/2019 10:18 AM POTASSIUM 4.7 07/08/2024 06:27 AM POTASSIUM 4.1 08/18/2019 10:18 AM CL 99 07/08/2024 06:27 AM CL 95 (L) 08/18/2019 10:18 AM CO2 26 07/08/2024 06:27 AM CO2 25 08/18/2019 10:18 AM CA 10.4 (H) 07/08/2024 06:27 AM CA 9.4 08/18/2019 10:18 AM BLOOD COUNT: WBC, Hgb, Platelets (see below for most recent value): Lab Results Component Value Date/Time WBC 7.82 07/08/2024 06:27 AM WBC 7.67 08/18/2019 10:18 AM HGB 10.1 (L) 07/08/2024 06:27 AM HGB 15.7 08/18/2019 10:18 AM PLT 268 07/08/2024 06:27 AM PLT 172 08/18/2019 10:18 AM LIVER FUNCTION TEST: Albumin, AST, ASTCMC (resulted at [facility] lab), Alkaline Phosphatase, ALT, ALTCMC (resulted at [facility] lab), Bilirubin Total, TBilCMC (resulted at [facility] lab), Protein - (see below for most recent value of each component): Lab Results Component Value Date/Time AST 33 07/07/2024 11:22 AM AST 28 08/18/2019 10:18 AM ALKP 123 07/07/2024 11:22 AM ALKP 66 08/18/2019 10:18 AM ALT 9 (L) 07/07/2024 11:22 AM ALT 24 08/18/2019 10:18 AM TBIL 0.3 07/07/2024 11:22 AM TBIL 0.5 08/18/2019 10:18 AM PROT 7.4 07/07/2024 11:22 AM PROT 7.5 08/18/2019 10:18 AM Imaging (focused): CCM Imaging: yes - CT PULMONARY EMBOLUS W CONTRAST Addendum Date: 07/07/2024 THIS REPORT CONTAINS FINDINGS THAT MAY BE CRITICAL TO PATIENT CARE. The findings were verbally communicated via telephone conference with FLORES Moseley at 3:44 PM EST on 07/07/2024. The findings were acknowledged and understood. THIS DOCUMENT HAS BEEN ELECTRONICALLY SIGNED BY CASSY GRANGER MD Result Date: 07/07/2024 IMPRESSION: 1. No pulmonary embolism. 3. Evidence of possible mediastinitis with erosion of the posterior faye and presence of pneumomediastinum, cannot exclude esophageal perforation. 2. Lvkpwhylfeagh-jf-mgk micronodularity and ground-glass opacities, more prominent in the left lower lung, concerning for aspiration pneumonia or pneumonitis. 4. New ill-defined hepatic hypodensities, with the largest lesion in the right hepatic lobe (10 cm), concerning for metastases. Further evaluation recommended. THIS DOCUMENT HAS BEEN ELECTRONICALLY SIGNED BY CASSY GRANGER MD XR CHEST 2 VIEWS Result Date: 07/07/2024 IMPRESSION: Deep left sulcus. Recommend CT chest. THIS DOCUMENT HAS BEEN ELECTRONICALLY SIGNED BY CHARLA VAZQUEZ MD Test Results Still Pending at Discharge: none MEDICATIONS: CCM discharge medications: Discharge medications MEDICATION UPDATES AT DISCHARGE CONTINUE taking these medications INSTRUCTIONS Flexeril 10 MG Tablet Generic drug: cyclobenzaprine as directed as needed Gabapentin 300 MG Tabs three tablets once daily as needed HYDROcodone-Acetaminophen 7.5-325 MG per tablet 4 times a day (lower back pain) Lisinopril-hydroCHLOROthiazide 20-12.5 MG per tablet 1 tablet daily Proventil HFA 108 (90 Base) MCG/ACT Aers Inhale 2 Puffs by mouth every 4 hours as needed for Cough, Shortness of Breath or Wheezing. SCHEDULED FOLLOW-UP: Future Appointments This patient does not currently have any appointments scheduled. OTHER INFORMATION: Vital Signs (last recorded): Most Recent Systolic BP: 120 mmHg (07/08/24 1400) Most Recent Diastolic BP: 92 mmHg (07/08/241399) Pulse: 103 (07/08/241399) Resp: 22 (07/08/241399) Most Recent Temperature: 36.39 C (07/08/241399) Weight: 64.2 kg (141 lb 8.6 oz) (07/08/24 0600) SpO2: 95 % (07/08/241399) O2 flow rate: 2 L/MIN (07/08/24799) Allergies: Percocet [oxycodone-acetaminophen] Activity: as tolerated Diet: age appropriate diet Nutrition: N/A Code Status: No Code Condition on Discharge: stable Indwelling Devices: Left chest mediport (not accessed) German Fall Scale: Fall Score: 35 (11/04/24 0800) Reference range: 0-24=minimal fall risk; 25-50=moderate fall risk; greater than 50=high fall risk. Isolation status: None Cognition: normal CONSULTS ORDERED: THORACIC SURGERY CONSULT IP PALLIATIVE MEDICINE CONSULT IP ADULT PHYSICAL THERAPY CONSULT IP ADULT OCCUPATIONAL THERAPY CONSULT IP REFERRING PHYSICIAN: REF: FLORES SIMMONS PRIMARY CARE PROVIDER: PCP: LATANYA Mccoy [address] [place] [address] / [facility] [address] (office) [phone] (fax) Note: To contact a physician responsible for this patients hospital care, please call [employer] [phone]. documented in this encounter Discharge Instructions * Discharge Instr - AVS* Jose Rafael English MD - 07/08/2024 2:37 PM EST Discharge Date: 07/08/2024 The information below provides you with the instructions and the list of medications you need to betaking following discharge from the hospital. If you have any questions, please ask before leaving. If you have questions after leaving, you can reach us at the numbers below. YOUR HOSPITAL PROVIDERS: Discharging Provider: Judy Denson DO Provider Department: Hospital Medicine To reach this Provider Monday through Monday (8:00 AM to 4:30 PM) for any questions or test results: Call [phone] For after-hours concerns: Call [phone] and have your provider paged, or the provider workers compensation claims assistant for the Department of Hospital Medicine paged. Please note, the discharging provider will not be able to provide you with any medications refills.Please discuss these with your primary care provider. Worsening Symptoms: If you have new symptoms, or your symptoms get worse, please contact your Discharge Provider or Primary Care Provider (PCP). If these providers are not available, you can go to your local [facility] or [facility] Clinic during their business hours. In an EMERGENCY situation: Call 911 or go to the nearest emergency room. A BRIEF SUMMARY OF YOUR HOSPITAL STAY: You came to the hospital with: complaint of shortness of breath Your main diagnosis at discharge was: lung cancer Operations & Procedures performed: none Complications: none applicable Inpatient test results that are pending at discharge: none Advance Directive Documented: Advance Directive Does the Patient have an Advance Directive? No YOUR FOLLOW UP APPOINTMENTS: Primary Care Provider Information: PCP: LATANYA Mccoy [address] [place] [address] / [facility] [address] (office) [phone] (fax) INSTRUCTIONS: Diet: Normal diet Activity: No restrictions Mediport Care: Prevent Infection. Use good hand hygiene by following the guidelines on this sheet. Don't touch thecatheter or dressing unless you need to. Always clean your hands before and after you come in contact with any part of the Mediport. To wash your hands with soap and water: Wet your hands with warm water. (Avoid hot water, which can cause skin irritation when you wash your hands often) Apply enough soap to cover the entire surface of your hands, including your fingers. Rub your hands together briskly for at least 15 seconds. Make sure to rub the front and back of each hand up to the wrist, your fingers and fingernails, between the fingers, and each thumb. Rinse your hands with warm water. Dry your hands completely with a new, unused paper towel. Don't use a cloth towel or other reusabletowel. These can harbor germs. Use the paper towel to turn off the faucet, then throw it away. If you're in a bathroom, also use apaper towel to open the door instead of touching the handle. Keep the Mediport dry. The catheter and dressing must stay dry. Don't go swimming, use a tub, or doother things that could get the Mediport wet. When it comes to bathing, also avoid getting the catheter wet. You may use plastic wrap and tape to keep the catheter and dressing dry. You may also ask the home health nurse what products they may have to keep things dry. If the dressing does get wet, call the home nurse agency right away for help. Additional Instructions: - Follow up with palliative care at [facility] for further titration of your pain medications documented in this encounter Progress Notes * Jose Rafael English MD - 07/08/2024 7:14 AM EST CCM - PROGRESS NOTE [facility]-[address] [address] Name: Wai Crawford Jr. 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 Patient presented to [facility] with worsening SOB associated with brown mucus production. He was HDS saturing 85% on RA. Imaging at [facility] showed possible mediastinitis with erosion of the posterior faye andpresence of pneumomediastinum but cannot r/o esophageal perforation. Labs significant for normal pH/CO2 (7.4/41/1), hyponatremia 131, normal lactate 1.5, elevated d-dimer 2.2, Hgb 12.7, WBC 11.9. He was given 1 dose zosyn/vanco in ED. He was transferred to SICU for close hemodynamic, respiratory monitoring and thoracic surgery consultation. Subjective EVENTS OF NOTE: 07/07: thoracic surgery consult, no surgical intervention. C discussion, patient now no code INTERIM HISTORY / SUBJECTIVE: Overnight: He was started on azithromycin and prednisone for possible COPD exacerbation vs post obstructive PNA. Remains HDS, saturating well on 2L NC. Afebrile. Voiding. Labs this morning show Na 131>133. Decr WBC 11.9>7.8. Hgb 11.7>10.1. Objective CONSTITUTIONAL DATA / OBJECTIVE: Vital Signs (Most Recent): Pulse: 98 (07/08/24699) BP: 112/81 (07/08/24599) Resp: 17 (07/08/24699) Temp: 36.4 C (97.5 F) (07/08/24599) SpO2: 100 % (07/08/24699) Vital Signs (Last 24 Hours): Pulse Av.9 Min: 98 Max: 113 No data recorded Most Recent Systolic BP Av.1 mmHg Min: 101 mmHg Max: 134 mmHg Most Recent Diastolic BP Av.5 mmHg Min: 73 mmHg Max: 98 mmHg Resp Av.8 Min: 17 Max: 27 Most Recent Temperature Av.5 C Min: 36.39 C Max: 36.61 C SpO2 Av.6 % Min: 94 % Max: 100 % Ventilatory Support: HFNC: O2 flow rate: 2 L/MIN (07/08/24699) CPAP/EPAP: IPAP: Intake & Output Summary (Last 24 hours): Intake/Output Summary (Last 24 hours) at 07/08/2024 07 Last data filed at 07/08/2024 0100 Gross per 24 hour Intake 460 ml Output 350 ml Net 110 ml Net IO Since Admission: 110 mL [07/08/24713] Height & Weight: Height: 185.4 cm (6' 1") (07/07/241914) Weight: 64.2 kg (141 lb 8.6 oz) (07/08/24599) Weight change: Body mass index is 18.67 kg/m. Physical Examination: General: Patient in no apparent distress HEENT: normocephalic, atraumatic Heart: regular rate and rhythm Pulmonary: bilateral rhonchi, decreased BS Abdomen: Soft, non-tender, non-distended. Bowel sounds present MSK: Gross motor function intact Extremities: No pitting edema present at lower extremity bilaterally Skin: Molino, warm, no wounds or lesions present. Neuro: AAOx3. No gross motor or sensory deficits. Psych: Appropriate mood and affect Peripheral Line Right Antecubital 20 Gauge (Active) Number of days: 1 Peripheral Line Right 20 Gauge (Active) Number of days: 1 Laboratory Values: reviewed. -- Brief labs below include the 7 most recent results over the past week. Blood Gas: Lab results within last 7 days (see chart for full results) Units 07/07/24 1210 pH, Arterial units 7.408 pCO2, Arterial mmHg 41.1 pO2, Arterial mmHg 111.0* Base Excess, Arterial mmol/L 1.1 FiO2 % Not Provided Chemistry Panel: Lab results within last 7 days (see chart for full results) Units 07/08/24 0627 07/07/24 1122 SODIUM mmol/L 133* 131* POTASSIUM mmol/L 4.7 3.9 CHLORIDE mmol/L 99 95* CO2 mmol/L 26 22 EGFR mL/min >90 83 BUN mg/dL 15 17 CREATININE mg/dL 0.8 1.0 GLUCOSE mg/dL 151* 149* CALCIUM mg/dL 10.4* 11.9* ANION GAP mmol/L 8 14 Complete Blood Count: Lab results within last 7 days (see chart for full results) Units 07/08/24 0627 07/07/24 1122 WBC K/uL 7.82 11.96* HGB g/dL 10.1* 12.7* HCT % 32.8* 40.3 PLT K/uL 268 379 MCV fL 90.6 88.8 Cardiac Studies: Lab results within last 7 days (see chart for full results) Units 07/07/24 1453 07/07/24 1122 Troponin T, High Sensitivity ng/L 15 20 BNP, NT-Pro pg/mL -- 331* Coagulation Studies: Lab results within last 7 days (see chart for full results) Units 07/07/24 1122 Prothrombin Time seconds 13.8 INR 1.1 D-Dimer ug/mL FEU 2.20* Liver Function Panel: Lab results within last 7 days (see chart for full results) Units 07/07/24 1122 Albumin g/dL 3.7* Protein g/dL 7.4 Bilirubin, Total mg/dL 0.3 AST U/L 33 ALT U/L 9* Alkaline Phosphatase U/L 123 Infectious Studies: Lab results within last 7 days (see chart for full results) Units 07/07/24 1453 07/07/24 1122 Lactate mmol/L 1.5 -- Procalcitonin ng/mL -- 0.13* Cultures: reviewed. Recent Cultures (2 Weeks) No lab values to display. Radiographic Studies: reviewed. CT PULMONARY EMBOLUS W CONTRAST Addendum Date: 07/07/2024 THIS REPORT CONTAINS FINDINGS THAT MAY BE CRITICAL TO PATIENT CARE. The findings were verbally communicated via telephone conference with FLORES Moseley at 3:44 PM EST on 07/07/2024. The findings were acknowledged and understood. THIS DOCUMENT HAS BEEN ELECTRONICALLY SIGNED BY CASSY GRANGER MD Result Date: 07/07/2024 IMPRESSION: 1. No pulmonary embolism. 3. Evidence of possible mediastinitis with erosion of the posterior faye and presence of pneumomediastinum, cannot exclude esophageal perforation. 2. Exihaqslbpqxt-um-npt micronodularity and ground-glass opacities, more prominent in the left lower lung, concerning for aspiration pneumonia or pneumonitis. 4. New ill-defined hepatic hypodensities, with the largest lesion in the right hepatic lobe (10 cm), concerning for metastases. Further evaluation recommended. THIS DOCUMENT HAS BEEN ELECTRONICALLY SIGNED BY CASSY GRANGER MD XR CHEST 2 VIEWS Result Date: 07/07/2024 IMPRESSION: Deep left sulcus. Recommend CT chest. 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 (HCC) (POA: Unknown) POA = Present On Admission NEUROLOGIC: Oncologic pain Continuation of [employer] pain regimen: Oxycontin 60 mg Q12H, Oxycodone 20 mg Q6H for break through pain,Tylenol PRN Restart [employer] gabapentin, flexeril Palliative consultation to discuss further pain management and goals of care PULMONARY / RESPIRATORY: Stage IV SCC of Lung with metastatic disease to liver, bone, muscle Pneumomediastinum 2/2 tumor erosion of the faye Concern for esophageal perforation Acute hypoxic respiratory failure COPD excerebration Azithromycin day 2; Prednisone 40 mg, BID day 1; stop today Continuation of [employer] albuterol PRN for dyspnea Thoracic surgery evaluated, no surgical intervention Continue supplementary oxygen, on NC, maintaining good saturations Palliative care consultation Aggressive pulmonary toilet Encourage incentive and flutter utilization CARDIOVASCULAR: No acute concerns Hypertension Hold [employer] Lisinopril-HCTZ 20-12.5 mg GASTROINTESTINAL / HEPATOBILIARY: Concern for esophageal perforation Liver metastasis Chronic constipation Patient no longer receiving radiation, he is however perusing palliative chemotherapy Palliative care consultation Bowel Regimen: Senna BID, miralax BID, colace BID, dulcolax PRN Stress Ulcer Prophylaxis: not indicated at this time. Diet / Nutrition: Regular Diet RENAL / METABOLIC / FLUIDS: Hyponatremia Hypercalcemia likely secondary to advanced bone involvement Trend Bmp, Mg, Phos daily Serum creatinine: 1 mg/dL 07/07/24 1122 Estimated creatinine clearance: 74.9 mL/min Strict monitoring of fluid intake and output Daily weights INFECTIOUS DISEASES: Leukocytosis, reporting chills, no lactic acidosis Concern for a post obstructive pneumonia COPD excerebration Given one dose Zosyn/Vanco in ED Stop Azithromycin day 2 Stop Prednisone day 1 Trend CBC daily ENDOCRINE: No acute concerns Blood Glucose Monitoring (BGM) Goal: 140-180 HEMATOLOGIC: Anemia Trend CBC daily VTE/DVT Prophylaxis: pneumatic compression devices + lovenox MUSCULOSKELETAL/ P.T / O.T. / MOBILITY: Bone metastasis Pain control as above PT/OT DERMATOLOGIC / WOUND CARE: No acute concerns Wound care PRN LINES / DRAINS / TUBES: LINES ALL Duration Peripheral Line Right 20 Gauge 1 day Peripheral Line Right Antecubital 20 Gauge 1 day List of consulted services: THORACIC SURGERY CONSULT IP PALLIATIVE MEDICINE CONSULT IP GLOBAL ISSUES: Code Status: No Code Analgesia: controlled - other Sedation: N/A Delirium/Confusion Assessment Method for ICU (CAM-ICU): CAM-ICU negative HOB Elevation: greater than 30 degrees Nutrition: enteral, at goal DVT Prophylaxis: chemoprophylaxis with pneumatic compression devices Stress Ulcer Prophylaxis: not indicated Glycemic Control: controlled - not in protocol Oral hygiene every four hours Chlorhexidine mouth rinse every twelve hours Central Line Necessity Reviewed: N/A Lazar: N/A Disposition: transfer to floor Patient's decisional capacity: has capacity to make decisions Communication with Patient/Family: No meeting held. Goals of Care: improve respiratory status and decrease pain and discomfort Patient was discussed with attending physician, DO Jose Rafael Hill MD Associated attestation - Judy Denson DO - 07/08/2024 4:11 PM EST I have seen and examined the patient on rounds. Discussed with Dr. English. Agree with above. Patient is a 59 yo male admitted last evening in transfer from [facility] for evaluation of pneumomediastinum and/or esophageal perforation. 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 He completed radiation treatment on 07/03 and is supposed to be starting Chemo on 07/09 withre-radiation to follow. He went to [facility] yesterday with worsening SOB and brown sputum and was noted to have a pulse ox in the mid 's. [facility] showed no pulmonary embolism, evidence of possible mediastinitis with erosion of the posterior faye and presence of pneumomediastinum (cannot rule out esophageal rupture), bibasilar tree-in-bud micronodularity and ground-glass opacities, more prominent in the left lower lung, concerning for aspiration pneumonia or pneumonitis, new ill-defined hepatic hypodensities, with the largest lesion in the right hepatic lobe (10 cm), concerning for metastases. He was transferred to [facility] for Thoracic Surgery evaluation. Diagnoses: Stage IV SCC Lung with mets S/P Radiation therapy Mets to bone, liver, and muscle Pneumomediastinum erosion posterior faye Possible COPD exacerbation vs. Post obstructive pneumonia COPD HTN HLD He was seen by Thoracic Surgery following admission and the patient did not feel he was going to agree to any surgical intervention. He reportedly expressed a desire to speak with Palliative Medicineregarding increasing his pain regimen as he felt as though it was not completely working for him. However most of his care is at [facility] with a well-established team there. He was started on a regular diet which he is tolerating well. Thinks that a large majority of his issues that caused him to go to [facility] were secondary to anxiety with some shortness of breath. He states he feels much better today. Was initially started on azithromycin and prednisone for possible CPAP/COPD exacerbation. However it appears as though he has neither one of those things. He expressed a significant desire to be discharged to home today for follow-up at [facility] with his previously established team. He was recently changed to OxyContin 60 mg twice a day with Oxy IR 20 mg every 6 hours as needed for pain. He states that this really isn't workingfor him at this time. We did resume his gabapentin and Flexeril per [employer] recommendations. We did consult Palliative Medicine to speak with him regarding what his next steps would look like.However after they spoke with them still expresses a desire to continue with chemotherapy and wouldlike to see his outpatient team tomorrow. We will be discharging him with the same pain regimen that he is on as he does appear fairly comfortable at this point. Again, he does not want surgical intervention, as tolerating a regular diet, and we will be following up with his primary team tomorrow.In addition we will stop the azithromycin and prednisone at this time and resume his [employer] medications. Plan for discharge to home today. Questions answered, instructions given, and follow-up arranged. Total time spent on discharge plannin minutes I saw and evaluated the patient today. I have reviewed the resident/fellow physician note and agree. documented in this encounter H&P Notes * Lynn Francis CRNP - 07/07/2024 5:28 PM EST HISTORY & PHYSICAL EXAMINATION - Critical Care Medicine [facility] [id number] Name: Wai Crawford Jr. Location: [facility] A455/[id number] Date: 07/07/2024 Date of admission: 07/07/2024 PRESENTING PROBLEM: shortness of breath HISTORY OF PRESENT ILLNESS: Patient is a 59 yoM with a PMH significant for 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 Patient presented to [facility] with worsening SOB associated with brown mucus production. He was HDS saturing 85% on RA. Imaging at [facility] showed possible mediastinitis with erosionof the posterior faye and presence of pneumomediastinum but cannot r/o esophageal perforation. Labs significant for normal pH/CO2 (7.4/41/1), hyponatremia 131, normal lactate 1.5, elevated d-dimer 2.2, Hgb 12.7, WBC 11.9. He was admitted to SICU for close hemodynamic, respiratory monitoring and thoracic surgery consultation. Upon arrival to the unit, he was hemodynamically stable maintaining good saturations on nasal cannula. Wai is alert, oriented and appropriate. He has the capacity to answer all questions posed to him. He verbalized complaints of shortness of breath and a productive cough. He also reported chillsand bone pain. He denied nausea, vomiting, chest pain and/or abdominal pain. Subjective PAST MEDICAL HISTORY: Past Medical History: Diagnosis Date Benign neoplasm of colon 09/11/13 adenomatous polyp, repeat 5 yrs COPD (chronic obstructive pulmonary disease) (HCC) 05/10/2022 HTN, goal below 140/90 10/22/2001 Major depressive disorder 10/22/2001 ICD-10 update of inactive term Mixed hyperlipidemia 05/10/2022 Tobacco user 01/02/2023 PAST SURGICAL HISTORY: Past Surgical History: Procedure Laterality Date ANAL FISTULA SURG, TRANS/SUPRA/EXTRASPHINCT 12/31/2013 TREATMENT OF ANAL FISTULA COMPLEX performed by Thomas Esteban MD at [facility] ANORECTAL EXAM ,DIAG, REQUIRING ANESTHESIA 12/31/2013 ANORECTAL EXAM UNDER ANESTHESIA performed by Thomas Esteban MD at [facility] COLONOSCOPY, DIAGNOSTIC (RECTUM) 09/11/2013 adenomatous polyp, repeat 5 yrs/COLONOSCOPY FLEXIBLE PROXIMAL DIAGNOSTIC performed by Abdiaziz Bruce MD at [facility] COLONOSCOPY, DIAGNOSTIC (RECTUM) N/A 12/12/2018 diverticulosis sigmoid colon/recall 5 years/COLONOSCOPY FLEXIBLE PROXIMAL DIAGNOSTIC performed by Abdiaziz Bruce MD at [facility] REMOVE PILONIDAL CYST, COMPLEX 12/31/2013 EXCISION OF PILONIDAL CYST SINUS COMPLICATED performed by Thomas Esteban MD at [facility] TREATMENT OF ANAL FISSURE 2013 2 anal fissure removed by Dr. Jovanny Jose FAMILY HISTORY: Family History Problem Relation Name Age of Onset Hypertension Mother Hypertension Father Stroke Mother Stroke Father SOCIAL HISTORY: Social History Tobacco Use Smoking status: Every Day Current packs/day: 1.00 Average packs/day: 1 pack/day for 12.0 years (12.0 ttl pk-yrs) Types: Cigarettes Smokeless tobacco: Never Substance Use Topics Alcohol use: No Drug use: Yes Types: Marijuana PRIOR TO ADMISSION MEDS: Current Outpatient Medications Medication Instructions Albuterol Sulfate (PROVENTIL HFA) 108 (90 Base) MCG/ACT AERS 2 Puffs, Inhalation, Q4H PRN FLEXERIL 10 MG PO TABS as directed as needed GABAPENTIN 300 MG PO TABS three tablets once daily as needed HYDROCODONE-ACETAMINOPHEN 7.5-325 MG PO TABS 4 times a day (lower back pain) LISINOPRIL-HYDROCHLOROTHIAZIDE 20-12.5 MG PO TABS 1 tablet daily ALLERGIES: Percocet [oxycodone-acetaminophen], nausea and vomiting ROS: He verbalized complaints of shortness of breath and a productive cough. He also reported chills andbone pain. He denied nausea, vomiting, chest pain and/or abdominal pain. Objective CONSTITUTIONAL DATA / OBJECTIVE: Vital Signs (Most Recent): BP 134/97 SPO2 97 Pulse 109 Resp 18 Height & Weight: Wt Readings from Last 3 Encounters: 07/07/24 65.8 kg (145 lb) 04/22/23 82.8 kg (182 lb 9.6 oz) 01/04/23 85.3 kg (188 lb) Weight change: There is no height or weight on file to calculate BMI. Physical Examination: General: Patient in no apparent distress. However ill appearing, HEENT: normocephalic, atraumatic Heart: regular rate and rhythm; S1 and S2 present; no murmurs, rubs or gallops. Pulmonary: Lung sounds are diminished with bilateral rhonchi. Abdomen: Soft, non-tender, non-distended. Normal bowel sounds and no rebound or guarding. MSK:Gross motor function intact Extremities: No pitting edema present at lower extremity bilaterally Skin: Molino, warm, no wounds or lesions present. Neuro: AAOx3. No gross motor or sensory deficits. Psych: Appropriate mood and affect Laboratory Values: reviewed. Blood Gas Lab results within last 7 days (see chart for full results) Units 07/07/24 1210 pH, Arterial units 7.408 pCO2, Arterial mmHg 41.1 pO2, Arterial mmHg 111.0* Base Excess, Arterial mmol/L 1.1 FiO2 % Not Provided Chemistry Panel Lab results within last 7 days (see chart for full results) Units 07/07/24 1453 07/07/24 1122 SODIUM mmol/L -- 131* POTASSIUM mmol/L -- 3.9 CHLORIDE mmol/L -- 95* CO2 mmol/L -- 22 BUN mg/dL -- 17 CREATININE mg/dL -- 1.0 GLUCOSE mg/dL -- 149* CALCIUM mg/dL -- 11.9* Lactate mmol/L 1.5 -- Complete Blood Count Lab results within last 7 days (see chart for full results) Units 07/07/24 1122 WBC K/uL 11.96* HGB g/dL 12.7* HCT % 40.3 PLT K/uL 379 MCV fL 88.8 Cardiac Studies Lab results within last 7 days (see chart for full results) Units 07/07/24 1453 07/07/24 1122 Troponin T, High Sensitivity ng/L 15 20 BNP, NT-Pro pg/mL -- 331* Coagulation Studies Lab results within last 7 days (see chart for full results) Units 07/07/24 1122 Prothrombin Time seconds 13.8 INR 1.1 Liver Function Panel Lab results within last 7 days (see chart for full results) Units 07/07/24 1122 Albumin g/dL 3.7* Protein g/dL 7.4 Bilirubin, Total mg/dL 0.3 AST U/L 33 ALT U/L 9* Alkaline Phosphatase U/L 123 Toxicology Studies No results in the last 7 days - inpatent use only Infectious Studies: Lab results within last 7 days (see chart for full results) Units 07/07/24 1453 07/07/24 1122 Lactate mmol/L 1.5 -- Procalcitonin ng/mL -- 0.13* Cultures: reviewed. Lab results within last 7 days (see chart for full results) Units 07/07/24 1124 Adenovirus by PCR Negative Coronavirus 229E by PCR Negative Coronavirus HKU1 by PCR Negative Coronavirus NL63 by PCR Negative Coronavirus OC43 by PCR Negative Coronavirus SARS-CoV-2 by PCR Negative Human Metapneumovirus by PCR Negative Rhinovirus/Enterovirus by PCR Negative Influenza A Virus by PCR Negative Influenza B Virus by PCR Negative Parainfluenza Virus 1 by PCR Negative Parainfluenza Virus 2 by PCR Negative Parainfluenza Virus 3 by PCR Negative Parainfluenza Virus 4 by PCR Negative Respiratory Syncytial Virus by PCR Negative Bordetella pertussis by PCR Negative Chlamydia pneumoniae by PCR Negative Mycoplasma pneumoniae by PCR Negative Bordetella parapertussis by PCR Negative Radiographic Studies: reviewed. CT PULMONARY EMBOLUS W CONTRAST Addendum Date: 07/07/2024 THIS REPORT CONTAINS FINDINGS THAT MAY BE CRITICAL TO PATIENT CARE. The findings were verbally communicated via telephone conference with FLORES Moseley at 3:44 PM EST on 07/07/2024. The findings were acknowledged and understood. THIS DOCUMENT HAS BEEN ELECTRONICALLY SIGNED BY CASSY GRANGER MD Result Date: 07/07/2024 IMPRESSION: 1. No pulmonary embolism. 3. Evidence of possible mediastinitis with erosion of the posterior faye and presence of pneumomediastinum, cannot exclude esophageal perforation. 2. Bsfwyttadlstv-[id number]-cpb micronodularity and ground-glass opacities, more prominent in the left lower lung, concerning for aspiration pneumonia or pneumonitis. 4. New ill-defined hepatic hypodensities, with the largest lesion in the right hepatic lobe (10 cm), concerning for metastases. Further evaluation recommended. THIS DOCUMENT HAS BEEN ELECTRONICALLY SIGNED BY CASSY GRANGER MD XR CHEST 2 VIEWS Result Date: 07/07/2024 IMPRESSION: Deep left sulcus. Recommend CT chest. THIS DOCUMENT HAS BEEN ELECTRONICALLY SIGNED BY CHARLA VAZQUEZ MD Assessment & Plan CRITICAL CARE SYSTEM REVIEW & ASSESSMENT/PLAN: Pneumonitis with concern for posterior erosion of the faye Questionable esophageal perforation COPD excerebration Concern for a post-obstructive pneumonia NEUROLOGIC: Oncologic pain Continuation of [employer] pain regimen: Oxycontin 60 mg Q12H, Oxycodone 20 mg Q6H for break through pain Palliative consultation to discuss further pain management and goals of care PULMONARY / RESPIRATORY: Stage IV SCC of Lung with metastatic disease to liver, bone, muscle Pneumomediastinum 2/2 tumor erosion of the faye Concern for esophageal perforation Acute hypoxic respiratory failure COPD excerebration Azithromycin Prednisone 40 mg, BID Continuation of [employer] albuterol PRN for dyspnea Thoracic surgery consultation, recommendations appreciated Continue supplementary oxygen, on NC, maintaining good saturations Palliative care consultation Aggressive pulmonary toilet Encourage incentive and flutter utilization Continuous cardio/pulmonary monitoring CARDIOVASCULAR: No acute concerns Hypertension Hold [employer] Lisinopril-HCTZ 20-12.5 mg GASTROINTESTINAL / HEPATOBILIARY: Concern for esophageal perforation Liver metastasis Patient no longer receiving radiation, he is however perusing palliative chemotherapy Palliative care consultation Bowel Regimen: Senna 1 tab daily . Stress Ulcer Prophylaxis: not indicated at this time.. Diet / Nutrition: Regular Diet RENAL / METABOLIC / FLUIDS: Hyponatremia Hypercalcemia likely secondary to advanced bone involvement Trend Bmp, Mg, Phos daily Serum creatinine: 1 mg/dL 07/07/24 1122 Estimated creatinine clearance: 74.9 mL/min Strict monitoring of fluid intake and output Daily weights INFECTIOUS DISEASES: Leukocytosis, reporting chills, no lactic acidosis Concern for a post obstructive pneumonia COPD excerebration Given one dose Zosyn/Vanco in ED Will start Azithromycin Prednisone Trend CBC daily ENDOCRINE: No acute concerns Blood Glucose Monitoring (BGM) Goal: 140-180 HEMATOLOGIC: Anemia Trend CBC daily VTE/DVT Prophylaxis: chemoprophylaxis with pneumatic compression devices MUSCULOSKELETAL/ P.T / O.T. / MOBILITY: Bone metastasis Pain control as above PT/OT DERMATOLOGIC / WOUND CARE: No acute concerns Wound care PRN LINES / DRAINS / TUBES: PIV x 2 List of consulted services: Thoracic surgery Palliative GLOBAL ISSUES: Code Status: Prior Analgesia: protocol with control Sedation: N/A Delirium/Confusion Assessment Method for ICU (CAM-ICU): CAM-ICU negative HOB Elevation: greater than 30 degrees Nutrition: PO DVT Prophylaxis: pneumatic compression devices Stress Ulcer Prophylaxis: not indicated Glycemic Control: controlled - not in protocol Oral hygiene every four hours Chlorhexidine mouth rinse every twelve hours Central Line Necessity Reviewed: N/A Lazar: N/A Disposition: keep in ICU Patient's decisional capacity: has capacity to make decisions Communication with Patient/Family: Brief Family Communication. Date and time of meetin07/07/2024 0800 pm Goals of Care: decrease pain and discomfort I have provided critical care diagnostic services for overwhelming infection and therapeutic services with frequent evaluation and titration of therapies for this patient on the date referenced above. Time devoted to patient care services described in this note equal: 30 minutes total critical caretime exclusive of time spent performing procedures or time spent by another provider or resident. LATANYA Hawkins 07/07/2024 8:50 PM I have reviewed the advanced practitioner's documentation on the date of service referenced in note, and I agree with, and take responsibility for the plan of care. Assessment 1. Hemoptysis, no episodes in the past 2 hours 2. Worsening Dyspnea on exertion, multifactorial 3. Possible COPD exacerbation 4. Necrotic subcarinal lymph nodes, concern for erosion of tracheal versus esophageal perforation 5. Active tobacco use 6. Hyponatremia 7. History of [id number]-[id number] lung carcinoma with metastasis to liver and bone currently on palliative chemotherapy, COPD, hypertension Plan 1. Patient's symptom complex of cough, sputum production with bloody/necrotic material and air in mediastinal lymph nodes is most likely secondary to radiation related necrosis to his endobronchial mass and subcarinal lymphadenopathy. There is also possibility for tumor invasion into the trachea or esophagus leading to pneumomediastinum We would pursue close monitoring of the patient in ICU overnight for deterioration in his respiratory status. 2. It would be reasonable to treat him for COPD exacerbation, we would start azithromycin and prednisone 40 mg daily for total of 5 days 3. Nicotine patch 4. I had a lengthy discussion with the patient regarding his overall clinical state and the fact that we do not have a curative option for his malignancy. I explained to him that there is a high likelihood for a catastrophic complication from malignancy. Patient would like to continue with conservative measures for the time being, in case of cardiac arrest he would not want to pursue cardiopulmonary resuscitation or intubation. This conversation was carried out in front of her girlfriend who also agrees with this plan. In the event, Wai can not make decisions for himself, he designates his girlfriend to be his healthcare power of research attorney. 5. Advance diet and activity as tolerated 6. Mechanical DVT prophylaxis, GI prophylaxis, out of bed to chair as tolerated I spent a total of 80 minutes coordinating, documenting, and providing care for this patient excluding time spent in the performance of separately billed services or time spent by another provider/QHP. documented in this encounter Consult Notes * Casey Dorman MD - 07/08/2024 1:00 PM ESTAssociated Order(s): PALLIATIVE MEDICINE CONSULT IP CONSULT NOTE - Palliative Medicine [facility] [phone] Name: Wai Crawford Jr. Location: [facility] A455/A Date: 07/08/2024 Time: 2:58 PM REQUESTING SERVICE: Critical Care REASON FOR CONSULT: We have been asked to see this patient for pain and symptom management HPI: " Patient is a 59 yoM with a PMH significant for stage 4 SCC of the lung with mets to the liver, bone (L femur s/p fixation 10/2023, R humerus, sternum, sacrum, L spine), and muscle (L gluteus) s/p radiation (ended 07/03) set to start chemotherapy 07/09 via left subclavian port and then reirradiation. Patient presented to [facility] with worsening SOB associated with brown mucus production. He was HDS saturing 85% on RA. Imaging at [facility] showed possible mediastinitis with erosion of the posterior faye and presence of pneumomediastinum but cannot r/o esophageal perforation. Labs significant for normal pH/CO2 (7.4/41/1), hyponatremia 131, normal lactate 1.5, elevated d-dimer 2.2, Hgb 12.7, WBC 11.9. He was admitted to SICU for close hemodynamic, respiratory monitoring and thoracic surgery consultation. Upon arrival to the unit, he was hemodynamically stable maintaining good saturations on nasal cannula. Wai is alert, oriented and appropriate. He has the capacity to answer all questions posed to him. He verbalized complaints of shortness of breath and a productive cough. He also reported chillsand bone pain. He denied nausea, vomiting, chest pain and/or abdominal pain. " This note was copy/pasted from Dr. Francis/Dr. Jack, dated on 07/08/2024. PALLIATIVE ENCOUNTER FROM TODAY'S VISIT: 07/08/2024 patient evaluated at bedside in the ICU on 07/08, no family present. I have reviewed patient's past medical history and events precipitating hospitalization. Patient resides in [place]. Prior to hospitalization patient followed with Palliative Medicine Paulo Natarajan and shares that he has a good interesting relationship. Prior to hospitalization he had been on extended release morphine and oxycodone as needed for breakthrough pain but was having uncontrolled pain and therefore was rotated to OxyContin 60 twice daily with oxycodone 20 mg q.6 hoursas needed for breakthrough pain. He still complains of significant pain in his chest but he wants to go home as soon as possible hopefully today. Patient unfortunately has been diagnosed with pneumomediastinum 2/2 tumor erosion of the faye. There is no surgical intervention at this time and per discussion with Critical Care patient would not want surgical intervention however patient is clear that he wants to pursue oncologic treatment options and chemotherapy for as long as able. He is supposed to have chemotherapy tomorrow. He is not ready for hospice but it is important for him to have improve control of his symptoms specifically his pain. We discussed option of rotation to methadone by Martha quezada however this would require him to remain in the hospital for a few more days. He does not want to do this and prefers to keep all of his medications the same and for his Palliative Medicine physician at [facility] to continue to manage his medications with no change until he has had an opportunity to speak with her further. REVIEW OF SYMPTOMS: [Severity scale of each symptom should be based on how the patient feels now.] 1. Pain Assessment: Chest pain Current Analgesic Regimen: OxyContin, oxycodone, Tylenol, Flexeril 2. Shortness of Breath Assessment: improving since hospitalization Current Regimen: None 3. Nausea Assessment: did not ask Current Regimen: None 4. Tiredness/Fatigue Assessment: did not ask Current Regimen: None 5. Drowsiness Assessment: None 6. Depression Assessment: 1. During the past month, has patient been bothered by feeling down, depressed, or hopeless? Did not ask 2. During the past month, has patient been bothered by having little interest or pleasure in doing things? Did not ask Current Regimen: none 7. Anxiety Assessment: did not ask Current Regimen: None 8. Anorexia/Lack of Appetite: +anorexia/cachexia syndrome Current Regimen: None 9. Delirium/Agitation: No Current Regimen: none 10. Well-being Assessment: None 11. Constipation Assessment: None Current Regimen: MiraLax, Senokot, docusate, Dulcolax 12. Insomnia Assessment: None Current Regimen: None 13. Oropharyngeal Secretions or Cough: No Current Regimen: Others: none Rest of the review of systems negative. FUNCTIONALITY: 60% - Ambulation: Reduced, Unable hobby/housework / Significant disease. Self-care: Occasional assistance necessary. Intake: Normal or reduced. Conscious level: Full or confusion. ADVANCED DIRECTIVES AND [place] ORDERS FOR LIFE-SUSTAINING TREATMENT: Patient has not completed PAST MEDICAL HISTORY: Past Medical History: Diagnosis Date Benign neoplasm of colon 09/11/13 adenomatous polyp, repeat 5 yrs COPD (chronic obstructive pulmonary disease) (HCC) 05/10/2022 HTN, goal below 140/90 10/22/2001 Major depressive disorder 10/22/2001 ICD-10 update of inactive term Mixed hyperlipidemia 05/10/2022 Tobacco user 01/02/2023 PAST SURGICAL HISTORY: Past Surgical History: Procedure Laterality Date ANAL FISTULA SURG, TRANS/SUPRA/EXTRASPHINCT 12/31/2013 TREATMENT OF ANAL FISTULA COMPLEX performed by Thomas Esteban MD at [facility] ANORECTAL EXAM ,DIAG, REQUIRING ANESTHESIA 12/31/2013 ANORECTAL EXAM UNDER ANESTHESIA performed by Thmoas Esteban MD at [facility] COLONOSCOPY, DIAGNOSTIC (RECTUM) 09/11/2013 adenomatous polyp, repeat 5 yrs/COLONOSCOPY FLEXIBLE PROXIMAL DIAGNOSTIC performed by Abdiaziz Bruce MD at [facility] COLONOSCOPY, DIAGNOSTIC (RECTUM) N/A 12/12/2018 diverticulosis sigmoid colon/recall 5 years/COLONOSCOPY FLEXIBLE PROXIMAL DIAGNOSTIC performed by Abdiaziz Bruce MD at [facility] REMOVE PILONIDAL CYST, COMPLEX 12/31/2013 EXCISION OF PILONIDAL CYST SINUS COMPLICATED performed by Thomas Esteban MD at [place] [facility] [place] TREATMENT OF ANAL FISSURE 2013 2 anal fissure removed by Dr. Jovanny Jose FAMILY HISTORY: Family History Problem Relation Name Age of Onset Hypertension Mother Hypertension Father Stroke Mother Stroke Father Family History: noncontributory SOCIAL HISTORY: Social History Tobacco Use Smoking status: Every Day Current packs/day: 1.00 Average packs/day: 1 pack/day for 12.0 years (12.0 ttl pk-yrs) Types: Cigarettes Smokeless tobacco: Never Vaping Use Vaping status: Never Used Substance Use Topics Alcohol use: No Drug use: Yes Types: Marijuana Family Support: significant other PSYCHOSOCIAL ASSESSMENT: At times, I worry I will be a burden to my family: Unknown Pertinent Social Factors: non-obtainable ALLERGIES: Percocet [oxycodone-acetaminophen] PHYSICAL EXAMINATION: Most Recent Vital Signs: BP: 120 mmHg/92 mmHg (07/08/24 1400) Pulse: 103 (07/08/24 1400) Resp: 22 (07/08/24 1400) Temp: 36.39 C (07/08/24 1400) Temp Summary: Temp Min: 36.4 C (97.5 F) Max: 36.8 C (98.2 F) SpO2: 95 % (07/08/24 1400) O2 flow rate: 2 L/MIN (07/08/24 0800) Supplemental O2 Delivery: Room Air, None (07/08/24 1400) Vital Signs Last 24 Hours: Systolic BP: Most Recent Systolic BP Av mmHg Min: 101 mmHg Max: 148 mmHg Temperature: Most Recent Temperature Av.5 C Min: 36.39 C Max: 36.78 C Pulse: Pulse Av.8 Min: 96 Max: 113 Respirations: Resp Av.1 Min: 17 Max: 27 SpO2: SpO2 Av.9 % Min: 93 % Max: 100 % Constitutional: no acute distress, (+) chronically ill, cachectic, frail, sitting in bedside chair HENT: normocephalic, bitemporal wasting Eyes: anicteric CV: normal rate, normal rhythm Chest: normal respiratory effort Abdominal: non distended Skin: intact to exposed areas of skin : Neuro: alert, oriented to person, place, and time Psych: normal mood and affect, judgement normal, memory normal LABS REVIEWED: yes Latest Reference Range & Units 01/04/23 05:43 07/07/24 11:22 07/07/24 12:10 07/07/24 14:53 07/08/24 06:27 SODIUM 135 - 146 mmol/L 142 131 (L) 133 (L) POTASSIUM 3.5 - 5.1 mmol/L 4.0 3.9 4.7 CHLORIDE 98 - 107 mmol/L 106 95 (L) 99 CO2 22 - 32 mmol/L 24 22 26 BUN 6 - 20 mg/dL 17 17 15 CREATININE 0.6 - 1.2 mg/dL 0.8 1.0 0.8 EGFR >=60 mL/min >90 83 >90 ANION GAP 7 - 15 mmol/L 12 14 8 GLUCOSE 70 - 120 mg/dL 121 (H) 149 (H) 151 (H) CALCIUM 8.4 - 10.2 mg/dL 8.7 11.9 (H) 10.4 (H) Magnesium 1.5 - 2.6 mg/dL 2.2 2.0 Phosphorus 2.5 - 4.8 mg/dL 3.1 2.4 (L) Lactate 0.4 - 2.0 mmol/L 1.5 Bicarbonate, Whole Blood 23.0 - 31.0 mmol/L 25.4 Protein 6.0 - 8.3 g/dL 6.2 7.4 (L): Data is abnormally low (H): Data is abnormally high Latest Reference Range & Units 01/02/23 07:23 01/03/23 04:31 01/04/23 05:42 07/07/24 11:22 07/07/24 12:10 07/08/24 06:27 CBC Rpt ! Rpt ! Rpt ! Rpt ! Rpt ! WBC 4.00 - 10.80 K/uL 13.01 (H) 17.30 (H) 12.61 (H) 11.96 (H) 7.82 RBC 4.50 - 5.25 M/uL 4.45 3.88 3.61 4.54 3.62 HGB 14.0 - 16.8 g/dL 13.5 (L) 13.8 (L) 11.4 (L) 10.9 (L) 12.7 (L) 11.7 (L) 10.1 (L) HCT 40.0 - 48.4 % 40.7 35.0 (L) 34.9 (L) 40.3 32.8 (L) MCV 82.0 - 99.5 fL 91.5 90.2 96.7 88.8 90.6 MCH 27.0 - 34.0 pg 30.3 29.4 30.2 28.0 27.9 MCHC 32.0 - 36.0 g/dL 33.2 32.6 31.2 31.5 30.8 RDW 11.5 - 15.5 % 13.4 13.3 13.5 15.5 15.0 PLT 140 - 400 K/uL 234 226 225 379 268 MPV 6.6 - 11.1 fL 11.1 10.9 11.4 9.4 9.8 CBC WITH WBC DIFFERENTIAL Rpt ! Rpt ! Absolute Neutrophils 1.80 - 7.70 K/uL 9.79 (H) 10.18 (H) Absolute Lymphocytes 1.00 - 4.80 K/ul 1.47 0.58 (L) Absolute Monocytes 0.00 - 1.10 K/uL 1.55 (H) 1.04 Absolute Eosinophils 0.00 - 0.70 K/uL 0.09 0.05 Absolute Basophils 0.00 - 0.20 K/uL 0.04 0.05 !: Data is abnormal (H): Data is abnormally high (L): Data is abnormally low Rpt: View report in Results Review for more information IMAGING REVIEWED: yes reviewed Xr abdomen 10/27/2023 FINDINGS Surgical clips right upper quadrant. Filter IVC. Intramedullary kajal and pin proximal left femur. Non obstructive bowel gas pattern. Calcification projecting over right kidney measuring 1.8 x 1.5 cm possibly kidney stone. Small round calcifications lower pelvis likely phleboliths. No evidence of mass or organomegaly. Old bilateral pubic rami fractures. IMPRESSION IMPRESSION 1. Nonobstructive bowel gas pattern. 2. Calcification projecting over right kidney measuring 1.8 x 1.5 cm possibly kidney stone. XR chest 07/07/2024 FINDINGS: Tubes, catheters and devices: Left chest wall Port-A-Cath tip projects over the SVC.. Lungs: Unremarkable. No consolidation. Pleural spaces: There is a deep sulcus on the left. Heart/Mediastinum: Unremarkable. No cardiomegaly. Bones/joints: Unremarkable. IMPRESSION IMPRESSION: Deep left sulcus. Recommend CT chest. CT PE 07/07/2024 FINDINGS: Tubes, catheters and devices: Tubes, Catheters, [...] cm), concerning for metastases. Further evaluation recommended. ASSESSMENT/PLAN: Wai Crawford Jr. 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 Patient has clear desire to proceed with disease directed therapy which includes palliative intent chemotherapy if this continues to be offered to him. He shares that he does not desire transition to comfort focused plan of care or hospice though symptom management including optimization of his pain regimen remains very important to him. It will be important for patient to have ongoing goals of care discussion in the outpatient settingwith his oncologist and primary Palliative Medicine provider as I am uncertain if patient has realistic understanding of his underlying disease and therefore treatment options moving forward in the setting of pneumomediastinum. Discharge planning as per primary Critical Care Medicine team - likely today 07/08. Cancer related pain Patient's cancer-related pain remains suboptimally controlled and refractory to both MSER and newlyinitiated regimen of OxyContin +oxycodone which was started on 07/03 as per PDMP. We had discussionat bedside with recommendation to remain in the hospital for another few days to allow for rotationfrom current opioid regimen to methadone by way of Jc protocol however patient eager to be discharged and would like to go home today and therefore would like to be discharged with current regimen of OxyContin +oxycodone with desire to follow-up with Palliative Medicine at [facility] for further pain management. Per patient preference no medication changes were made - recommend discharge with [employer] regimen Continue OxyContin 60 mg twice daily Continue oxycodone 20 mg q.6 hours as needed Continue Flexeril 10 mg daily p.r.n I spent a total of 60 minutes coordinating, documenting, and providing care for this patient excluding time spent in the performance of separately billed services. I have reviewed the advanced practitioner's documentation on the date of service referenced in note, and I agree with, and take responsibility for the plan of care. I spent a total of 45 minutes coordinating, documenting, and providing care for this patient excluding time spent in the performance of separately billed services or time spent by another provider/QHP. We appreciate your consult request and the opportunity to assist in the care of your patient. Please do not hesitate to call or page with additional questions or concerns. We will always try to remain available. This patient was seen and examined with Dr. Dorman at the time of consult. * Tayler Moon OTR/Lupe - 07/08/2024 11:14 AM ESTAssociated Order(s): ADULT OCCUPATIONAL THERAPY CONSULT IP GENERAL EVALUATION - Occupational Therapy [address] [id number] Name: Wai Crawford Jr. Location: [facility] [place] A455/A Date: 07/08/2024 Time: 1113 Wai Crawford Jr. is a 59 year old male. Patient Status: Inpatient Insurance: Payor: GENERIC MEDICARE ADVANTAGE Plan: GENERIC MEDICARE ADVANTAGE Product Type: *No Product type* Payor: dakick [place] Plan: dakick [facility] Product Type: HMO Patient Seen: at bedside, nursing cleared patient for therapy Patient Identified By: Name, ID Band and Date Diagnosis: lung CA, mediastinitis (07/08/241114) Status of treatment: Evaluation completed (07/08/241114) Orders: OT evaluation and treatment (07/08/241114) Weight Bearing Status: Weight bearing as tolerated (07/08/241114) Precautions: Alarms;Falls;Safety (07/08/241114) Total Treatment Time: 15 (07/08/241114) Past Medical History: Past Medical History: Diagnosis Date Benign neoplasm of colon 09/11/13 adenomatous polyp, repeat 5 yrs COPD (chronic obstructive pulmonary disease) (HCC) 05/10/2022 HTN, goal below 140/90 10/22/2001 Major depressive disorder 10/22/2001 ICD-10 update of inactive term Mixed hyperlipidemia 05/10/2022 Tobacco user 01/02/2023 Past Surgical History: Past Surgical History: Procedure Laterality Date ANAL FISTULA SURG, TRANS/SUPRA/EXTRASPHINCT 12/31/2013 TREATMENT OF ANAL FISTULA COMPLEX performed by Thomas Esteban MD at [facility] ANORECTAL EXAM ,DIAG, REQUIRING ANESTHESIA 12/31/2013 ANORECTAL EXAM UNDER ANESTHESIA performed by Thomas Esteban MD at [facility] COLONOSCOPY, DIAGNOSTIC (RECTUM) 09/11/2013 adenomatous polyp, repeat 5 yrs/COLONOSCOPY FLEXIBLE PROXIMAL DIAGNOSTIC performed by Abdiaziz Bruce MD at [facility] COLONOSCOPY, DIAGNOSTIC (RECTUM) N/A 12/12/2018 diverticulosis sigmoid colon/recall 5 years/COLONOSCOPY FLEXIBLE PROXIMAL DIAGNOSTIC performed by Abdiaziz Bruce MD at [facility] REMOVE PILONIDAL CYST, COMPLEX 12/31/2013 EXCISION OF PILONIDAL CYST SINUS COMPLICATED performed by Thomas Esteban MD at OR [facility] [place] TREATMENT OF ANAL FISSURE 2013 2 anal fissure removed by Dr. Jovanny Jose Social History/Disposition Lives with: (girlfriend) (07/08/241114) Assistance available: Yes (07/08/241114) Dwelling type: Single story home (07/08/241114) Entry steps: (2-4) (07/08/241114) Inside steps: None (07/08/241114) Bedroom location: 1st floor (07/08/241114) Bath location: 1st floor full bath (07/08/241114) Prior Level of Function Reported by: Patient (07/08/241114) Ambulation: Ambulatory with device (07/08/241114) Ambulatory Device: Rolling walker (or cane) (07/08/241114) Grooming: Independent (07/08/241114) Bathing: Assistance (07/08/241114) Dressing: Assistance (07/08/241114) Feeding: Independent (07/08/241114) Toileting: Independent (07/08/241114) Meal Prep: Independent (07/08/241114) Homemaking: Assistance (07/08/241114) Durable Medical Equipment at home: Rolling walker;Straight cane (07/08/241114) Pain: Patient has complaints of pain. Pain located chest and bilateral hips. Did not rate Observations Consciousness: Alert (07/08/241114) Orientation: Oriented times 4 (07/08/241114) Psychosocial: Patient can communicate basic needs;Patient can converse in a social setting (07/08/241114) Sitting posture: Forward head;Rounded shoulders (07/08/241114) Standing posture: Forward head;Rounded shoulders (07/08/241114) Safety awareness: The Patient verbalizes insight of current deficits.;The Patient demonstrates carryover of insight during functional tasks.;The Patient can communicate basic needs. (07/08/241114) Other Findings Endurance: Fair (07/08/241114) Light touch sensation: Intact (07/08/241114) Proprioception: Intact (07/08/241114) Coordination: Intact (07/08/241114) Tone: Normal tone (07/08/241114) Edema: No edema noted (07/08/241114) Current Functional Status: Bilateral Upper Extremity Range of Motion: WFL (07/08/241114) Strength Assessment: (4/5 throughout) (07/08/241114) Self Care Able to provide self care: No (07/08/241114) Feeding: Supervision (Please comment) (setup) (07/08/241114) Grooming: Supervision (Please comment) (07/08/241114) Dressing Upper Body: Supervision (Please comment) (07/08/241114) Lower Body: Moderate Assistance (socks) (07/08/241114) Functional Ambulation Assistive Device: Rolling walker (07/08/241114) Distance in feet:: 100 (07/08/241114) Level of Assistance: Supervision (Please Comment) (07/08/241114) Bed Mobility Supine-Sit: Supervision (Please comment) (07/08/241114) Sit-Supine: Supervision (Please comment) (07/08/241114) OT Transfers Sit-Stand: Supervision (Please comment) (07/08/241114) Stand-Sit: Supervision (Please comment) (07/08/241114) Balance Sit (Static): Fair (07/08/241114) Sit (Dynamic): Fair (07/08/241114) Stand (Static): Fair (07/08/241114) Stand (Dynamic): Fair (07/08/241114) Alarm Status Patient positioned in: Bed (07/08/241114) With: Bed alarm intact and functioning and call alonso in reach (07/08/241114) Patient and Family Goals: to return home Patient Education Education Topic: Role of OT;Plan of care goals (07/08/241114) Review of Precautions: Fall;Safety (07/08/241114) Education Provided to: Patient (07/08/241114) Response to Education: Receptive and agreeable to education (07/08/241114) Barriers to learning: Medical status (07/08/241114) Preferred learning method: Combination (07/08/241114) Treatment Provided: Evaluation Moderate Complexity 15 minutes - [id number]: Patient was cooperative, pleasant, motivated, and alert during treatment session. Moderate complexity evaluation performed and 3-5 activity limitations were identified, including ADL deficit, functional mobility deficit, bed mobility deficit, decreased strength, decreased endurance, and impaired balance. Minimal or moderate modification of the functional task was necessary to complete the evaluation. Deficits Requiring O.T. Treatment: Deficits requiring O.T. treatment needs: ADL/self-care;Balance;Endurance;Functional mobility;Safety;Upper extremity strength (07/08/241114) Goals: Increase Strength of: increase 1/2 grade, Demonstrates sitting Balance at: modified independent, Demonstrates standing Balance at: modified independent, Demonstrates self care at: Grooming at Modified Independent , Bathing upper body at Modified Independent , Bathing lower body at Modified In dependent , Upper body dressing at Modified Independent , Lower body dressing at Modified Independent and Toileting at Modified Independent , Demonstrates Activity Tolerance at 40/45 minutes, Demonstrates Bed Mobility with: Supine to Sit: Modified Independent and Sit to Supine: Modified Independent, Demonstrates Transfers with: Sit to Stand: Modified Independent (100% with device/additional time) Stand to Sit: Modified Independent (100% with device/additional time) Bed to Chair/Wheelchair: Modified Independent (100% with device/additional time) Toilet: Modified Independent (100% with device/additional time) , Demonstrates Functional Ambulation: Assistive Device: least restrictive device and Level of Assistance: Modified Independent and Increase safety with transfers, ambulation and self care Goal Time Frame: 10 visits Assessment: Patient is a 59 year old male admitted with lung CA and presents with minor deficits inall areas of care and mobility due to decreased strength, balance, activity tolerance, safety, painand overall medical condition. Supervision to sit up at the edge of the bed and completed UE self care after setup. Assistance required to initiate socks on bilateral LE due to pain but patient stated significant other assists with task at baseline. Supervision to stand and ambulate with use of rolling walker with no significant episodes of loss of balance. Would benefit from continued OT treatment to maximize level of functional independence. Please consider home with post-acute care services w hich may include home health or outpatient therapy. The level of care will be determined in collaboration with the patient, family/caregiver and care team members. Treatment Plan: Energy Conservation, Safety, Bed mobility training, Functional Ambulation, Transfertraining, Upper extremity strengthening, Balance activities: , ADL training , and Endurance Anticipated Frequency (on eval): 1 to 3 times per week (07/08/241114) Equipment Needs Equipment needs: Rolling walker (07/08/241114) AM-PAC Help From Another Person Eating Meals: A little (07/08/241114) Help From Another Person Taking Care of Personal Grooming: A little (07/08/241114) Help From Another Person To Put On/Take Off Upper Body Clothing: A little (07/08/241114) Help From Another Person To Put On/Take Off Lower Body Clothing: A little (07/08/241114) Help From Another Person Toileting: A little (07/08/241114) Help From Another Person Bathing: A little (07/08/241114) OT AM-PAC Score: 18 (07/08/241114) OT AM-PAC t-Scale Score: 38.66 (07/08/241114) HLM (Highest Level of Mobility) Goal: Level 6 walk 10 steps or more (07/08/241111) A portion of this AM-PAC assessment not scored based on functional assessment ; rather clinical decision making utilized based on current findings and/or prior level of function. Please refer to future AM-PAC calculations of functional ability as they become available. Tayler Moon MS OTR/L Occupational Therapy [facility] 07/08/2024 2:49 PM * Carley Jackson, PT - 07/08/2024 11:12 AM ESTAssociated Order(s): ADULT PHYSICAL THERAPY CONSULT IP GENERAL EVALUATION - Physical Therapy [address] [address] Name: Wai Crawford Jr. Location: [facility] [place] A455/A Date: 07/08/2024 Time: 1111 Wai Crawford Jr. is a/an 59 year old male. Patient Status: Inpatient Insurance: Payor: GENERIC MEDICARE ADVANTAGE Plan: GENERIC MEDICARE ADVANTAGE Product Type: *No Product type* Payor: dakick [place] Plan: dakick [facility] Product Type: HMO Patient Seen: at bedside, nursing cleared patient for therapy Patient Identified By: Name, ID Band and Date Diagnosis: non-small cell lung cancer (07/08/241111) Status of treatment: Evaluation completed (07/08/241111) Orders: PT evaluation and treatment;OOB (07/08/241111) Weight Bearing Status: Weight bearing as tolerated (07/08/241111) Precautions: Alarms;Falls;Safety (07/08/241111) Total Treatment Time--free text: 16 (07/08/241111) Past Medical History: Past Medical History: Diagnosis Date Benign neoplasm of colon 09/11/13 adenomatous polyp, repeat 5 yrs COPD (chronic obstructive pulmonary disease) (HCC) 05/10/2022 HTN, goal below 140/90 10/22/2001 Major depressive disorder 10/22/2001 ICD-10 update of inactive term Mixed hyperlipidemia 05/10/2022 Tobacco user 01/02/2023 Past Surgical History: Past Surgical History: Procedure Laterality Date ANAL FISTULA SURG, TRANS/SUPRA/EXTRASPHINCT 12/31/2013 TREATMENT OF ANAL FISTULA COMPLEX performed by Thomas Esteban MD at [facility] ANORECTAL EXAM ,DIAG, REQUIRING ANESTHESIA 12/31/2013 ANORECTAL EXAM UNDER ANESTHESIA performed by Thomas Esteban MD at [facility] COLONOSCOPY, DIAGNOSTIC (RECTUM) 09/11/2013 adenomatous polyp, repeat 5 yrs/COLONOSCOPY FLEXIBLE PROXIMAL DIAGNOSTIC performed by Abdiaziz Bruce MD at [facility] COLONOSCOPY, DIAGNOSTIC (RECTUM) N/A 12/12/2018 diverticulosis sigmoid colon/recall 5 years/COLONOSCOPY FLEXIBLE PROXIMAL DIAGNOSTIC performed by Abdiaziz Bruce MD at [facility]COPY [facility] REMOVE PILONIDAL CYST, COMPLEX 12/31/2013 EXCISION OF PILONIDAL CYST SINUS COMPLICATED performed by Thomas Esteban MD at [facility] TREATMENT OF ANAL FISSURE 2013 2 anal fissure removed by Dr. Jovanny Jose Subjective: Patient resting in bed, agreeable to PT bedrest evaluation Social History/Disposition Lives with: Friend (girlfriend) (07/08/241111) Assistance available: Yes (07/08/241111) Dwelling type: Single story home (07/08/241111) Entry steps: 4 (or 2) (07/08/241111) Inside steps: None (07/08/241111) Bedroom location: 1st floor (07/08/241111) Bath location: 1st floor full bath (07/08/241111) Prior Level of Function Reported by: Patient (07/08/241111) Ambulation: Ambulatory with device (07/08/241111) Ambulatory Device: Cane (rolling walker PRN) (07/08/241111) Devices at home: Rolling walker;Straight cane;Wheelchair;Shower chair (07/08/241111) Observations Consciousness: Alert (07/08/241111) Orientation: Oriented times 4 (07/08/241111) Psychosocial: Patient can communicate basic needs;Patient can converse in a social setting (07/08/241111) Other Findings: Yes (07/08/241111) Findings: Light touch sensation (07/08/241111) Light Touch Sensation Results: Intact;LLE;RLE (07/08/241111) Sitting Posture: Rounded shoulders (07/08/241111) Standing Posture: Rounded shoulders (07/08/241111) Pain: Patient has complaints of pain. Pain located chest, B hips; does not rate Range of Motion Range of Motion: WFL (07/08/241111) Strength Assessment Strength Assessment: Deficits noted (07/08/241111) WNL, except: LLE;RLE (07/08/241111) LLE: 4/5 (07/08/241111) RLE: 4/5 (07/08/241111) P.T. Bed Mobility Supine-Sit: Supervision (07/08/241111) Sit-Supine: Supervision (07/08/241111) Transfers Sit-Stand: Supervision (07/08/241111) Stand-Sit: Supervision (07/08/241111) Ambulation Assist: Supervision (07/08/241111) Distance Ambulated (feet): 100 (07/08/241111) Assistive Device: Rolling walker (07/08/241111) Ambulatory safety: Patient verbalizes insight of current deficits;Patient demonstrates carryover ofinsight during functional tasks (07/08/241111) Balance Sit (Static): Fair (07/08/241111) Sit (Dynamic): Fair (07/08/241111) Stand (Static): Fair (07/08/241111) Stand (Dynamic): Fair (07/08/241111) Patient and or Family Goal(s): to get well and to return home Patient Education Review of Precautions: Safety;Fall (role of PT) (07/08/241111) Safety Awareness: Patient verbalizes insight of current deficits;Patient demonstrates carryover of insight during functional tasks (07/08/241111) Preferred learning method: Combination (07/08/241111) Barriers to learning: Medical Status (07/08/241111) Method of Education: Verbalized to patient (07/08/241111) Topic of Education: Safety with mobility, Goals/plan of care, and Fall prevention Method of Education: Verbal discussion and explanation provided to patient: verbalized understanding and or agreement of this information Treatment Provided: Evaluation Moderate Complexity 16 minutes - 70159: Patient was cooperative, pleasant, and motivated during treatment session. Moderate complexity evaluation performed and 1-2 personal factors or comorbidities were identified that will impact plan of care, including cancer history. Patient presents with limitations in strength, bed mobility, transfers, gait, elevations, balance, endurance, and safety, which will impact plan of care. These limitations will be addressed by the goals set for this patient. Alarm Status Patient positioned in: Bed (07/08/241111) With: Bed alarm intact and functioning and call alonso in reach (07/08/241111) Treatment Status: Treatment at bedside (07/08/241111) Goals: Demonstrate Bed Mobility with: Sit to supine: modified independent Supine to sit:modified independent Demonstrate transfers with: Sit to stand: modified independent Stand to sit: modified independent Bed to chair: modified independent with least restrictive device Chair to bed: modified independent with least restrictive device Demonstrate ambulation: distance: 250 feet with assistive device: least restrictive device and level of assistance: modified independent Demonstrate Stair climbing (when appropriate): number of stairs: 2 with level of assistance: modified independent Increase Strength: to 5/5 BLE Increase Balance: fair+ sitting / fair+ standing Increase safety: with all functional mobility Time Frame: 10 visits Assessment: Patient is 59 y/o male with dx non-small cell lung cancer. Prior to admission, patient lives with girlfriend and was independent with mobility with cane (rolling walker PRN). Patient currently requires supervision for all aspects of mobility. Ambulates with rolling walker. Mobility thisdate limited by fatigue. Ended session with patient resting comfortably in bed. Patient's overall mobility is limited by decreased LE strength, decreased balance, and overall medical status. Patient would benefit from continued PT to maximize functional independence. Please consider home with post-acute care services which may include home health or outpatient therapy. The level of care will be determined in collaboration with the patient, family/caregiver and care team members. Treatment Plan: Bed mobility training, Transfer training, Gait training, Elevation training, Strengthening exercises: BLE, Balance activities, and Educate on safety with functional mobility Anticipated Frequency (on eval): 1 to 3 times per week (07/08/241111) Deficits requiring P.T. treatment needs: Safety;Mobility;Balance;Weakness;Endurance;Lower extremitystrength (07/08/241111) Equipment needs: No device (07/08/241111) AM-PAC Score With Stairs : 18 (07/08/24 1112) A portion of this AM-PAC assessment not scored based on functional assessment rather clinical decision making utilized based on current findings and/or prior level of function. Please refer to futureAM-PAC calculations of functional ability as they become available. Carley Jackson PT, DPT Physical Therapy [facility] * Luis Miguel Thomas RDN - 07/08/2024 8:38 AM EST CLINICAL NUTRITION CONSULT/PROGRESS NOTE [address] [address] Name: Wai Crawford Jr. Location: [facility] A455/A Date: 07/08/2024 Time: 8:38 AM How patient was identified (select 2): Medical record number and Name Discussed in interdisciplinary rounds: Yes Wai Crawford Jr. 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 Reported that his appetite and oral intake have been fluctuating over a month due to cancer/radiation. Stated that was able to drink Ensure 6 x daily. He prefers strawberry flavor. 75-100% meal consumption documented per flow sheets. Denies swallowing difficulty. No nausea, vomiting and abdominal discomfort reported. Stated that he had wt loss over 50 lbs. He reported that he was 224 lbs in Sep 2023. As per EHR, significant wt loss of 22% x 3 months noted. NFPE shows significant severe muscle/wt loss. Will add severe malnutrition dx. Patient prefers to have easy to chew diet for ease of chewing. NUTRITION ASSESSMENT: Past medical/surgical history and medications reviewed. Food/Nutrition-Related History Diet: Regular Previously followed diet: Regular diet, soft meats Food Allergies/Intolerances: None Adult Energy Intake: Less than 75% of estimated energy requirement for greater than 1 month (moderate/severe, chronic illness). Pertinent medications/vitamins/minerals/supplements: Colace, miralax 17 mg, senna, dulcolax, phos -Nak powder 2 packets Pertinent Biochemical Data: Latest Reference Range & Units 07/08/24 06:27 Phosphorus 2.5 - 4.8 mg/dL 2.4 (L) (L): Data is abnormally low -supplemented Nutrition-Focused Physical Findings: Appearance: Ill-appearing Respiratory support: Supplemental O2 Delivery: Nasal Cannula Nasal/Oral: Mastication, impaired Digestive: Appetite fair and Appetite poor Cognition: Awake, alert and Oriented Skin: Intact Nutrition Focused Physical Exam: NFPE completed on 07/08 Subcutaneous Fat Loss: Orbital fat pads: Moderate Buccal fat: Severe Tricep: Severe Muscle Loss: Temples: Severe Clavicles: Severe Shoulders: Severe Interosseous: Severe Quadriceps: Severe Anthropometrics Measurements Height: 185.4 cm (6' 1") (07/07/241914) Admission weight: 64 kg (141 lb 1.5 oz) Weight: 64.2 kg (141 lb 8.6 oz) (07/08/24 06) BMI: 18.62 (07/07/241914) Usual Body Weight: 73 - 84 kg per EHR [place] weight: 85.6 kg [place] Weight Based on BMI: 24.9 Interpretation of Weight Change Prior to Admission: Greater than 7.5% weight loss in 3 months (Severe) Greater than 20% weight loss in 1 year (Severe) Nutrition Prescription: Energy needs: 30-35 Kcal/kg Kcal/day: 1920 - 2240 Based on admission weight - 64 kg Protein needs: 1.3-1.5 gm/kg Protein: 83 - 96 gm Based on admission weight Fluid needs: 30 ml/kg Fluid: 1920 ml/day Based on admission weight Malnutrition: Malnutrition Present: Yes (07/08/241056) Adult Malnutrition Classification: Severe (07/08/241056) Malnutrition Characteristics: Fat loss;Muscle loss;Inadequate energy intake;Weight loss (07/08/241056) NUTRITION DIAGNOSIS: Increased nutrient needs calorie , protein related to cancer, radiation therapy, possible chemo plan as evidenced by nutrient demand of the condition Malnutrition severe related to chronic illness as evidenced by patient consuming less than 75% of estimated energy requirements x 1 month, greater than 7.5% weight loss x 3 months, severe fat loss, and severe muscle loss. Goals: Patient to consume greater than >75 % of daily meals and >75% of daily supplements within 3-5days. NUTRITION INTERVENTION/PLAN: Orders: Change diet to easy to chew diet per pt's request Oral nutrition supplement added Boost High Protein (1 cup provides 250 calories, 20 grams protein, 28 grams carbohydrate) TID Clinical Nutrition Recommendations: Diet: Continue current nutrition plan NUTRITION MONITORING AND EVALUATION: Nursing documentation flowsheets for percent meal intake Tolerance of supplement per patient/nursing report Lab values warranting change with MNT Weight for trends Plan follow-up: Will follow and adjust nutrition plan of care as medical condition requires. Please contact for change(s) in patient condition requiring earlier intervention. Luis Miguel Thomas MS, LEE, LDN Clinical Dietitian [facility] text * Russell Sanders MD - 07/07/2024 6:09 PM ESTAssociated Order(s): THORACIC SURGERY CONSULT IP CONSULT - Thoracic Surgery [facility] [address] Name: Wai Crawford Jr. Location: [facility] [place] A455/A Date: 07/07/2024 Time: 6:09 PM REQUESTING SERVICE: SICU REASON FOR CONSULT: Concern for esophageal perforation HISTORY OF PRESENT ILLNESS: Wai Crawford Jr. is a 59 year old male with NSCLC with mets to the liver and bone on palliative chemoXRT, COPD, HTN, MDD, and HLD transferred to [facility] SICU from [facility] with concern for mediastinitis andesophageal perforation. Patient states he has been experiencing occasional hemoptysis since he started chemo in October. Over the last couple of days, he noticed yellow sputum and then had an acute increase in work of breathing. He thought he was developing a pneumonia so he went to [facility] for evaluation. At that time, CT showed concern for mediastinitis and possible esophageal perforation so he was transferred to [facility] for further management. Patient examined shortly after arrival to SICU. Satting in 90's on 2LNC and tachycardic to 110's. States his breathing is better now and he feels like he might have had a panic attack. He knows his cancer prognosis is poor and that any treatment at this point would be for palliation rather than curative intent. He expressed that he wants to be comfortable so he can enjoy the rest of his time. He is clear that he does not want any invasive measures. He is currently on palliative chemotherapy. Heis s/p two rounds of palliative radiation and declined proceeding with any additional radiation at this time. HOSPITAL PROBLEM LIST: Active Problems: * No active hospital problems. * POA = Present On Admission PAST MEDICAL HISTORY: Past Medical History: Diagnosis Date Benign neoplasm of colon 09/11/13 adenomatous polyp, repeat 5 yrs COPD (chronic obstructive pulmonary disease) (HCC) 05/10/2022 HTN, goal below 140/90 10/22/2001 Major depressive disorder 10/22/2001 ICD-10 update of inactive term Mixed hyperlipidemia 05/10/2022 Tobacco user 01/02/2023 PAST SURGICAL HISTORY: Past Surgical History: Procedure Laterality Date ANAL FISTULA SURG, TRANS/SUPRA/EXTRASPHINCT 12/31/2013 TREATMENT OF ANAL FISTULA COMPLEX performed by Thomas Esteban MD at OR [facility] ANORECTAL EXAM ,DIAG, REQUIRING ANESTHESIA 12/31/2013 ANORECTAL EXAM UNDER ANESTHESIA performed by Thomas Esteban MD at [facility] COLONOSCOPY, DIAGNOSTIC (RECTUM) 09/11/2013 adenomatous polyp, repeat 5 yrs/COLONOSCOPY FLEXIBLE PROXIMAL DIAGNOSTIC performed by Abdiaziz Bruce MD at ENDOSCOPY [facility] COLONOSCOPY, DIAGNOSTIC (RECTUM) N/A 12/12/2018 diverticulosis sigmoid colon/recall 5 years/COLONOSCOPY FLEXIBLE PROXIMAL DIAGNOSTIC performed by Abdiaziz Bruce MD at ENDOSCOPY [facility] REMOVE PILONIDAL CYST, COMPLEX 12/31/2013 EXCISION OF PILONIDAL CYST SINUS COMPLICATED performed by Thomas Esteban MD at [facility] TREATMENT OF ANAL FISSURE 2013 2 anal fissure removed by Dr. Jovanny Jose SOCIAL HISTORY: Social History Tobacco Use Smoking status: Every Day Current packs/day: 1.00 Average packs/day: 1 pack/day for 12.0 years (12.0 ttl pk-yrs) Types: Cigarettes Smokeless tobacco: Never Vaping Use Vaping status: Never Used Substance Use Topics Alcohol use: No Drug use: Yes Types: Marijuana FAMILY HISTORY: Family History Problem Relation Name Age of Onset Hypertension Mother Hypertension Father Stroke Mother Stroke Father ALLERGIES: Percocet [oxycodone-acetaminophen] ROS: ROS: As above. All other pertinent system review is negative. PHYSICAL EXAMINATION: Most Recent Vital Signs: BP: 134 mmHg/97 mmHg (07/07/241914) Pulse: 109 (07/07/241914) Resp: 18 (07/07/241914) Temp: Temp Summary: No data recorded SpO2: O2 flow rate: Supplemental O2 Delivery: ECOG Performance Status: 3 = Capable of limited self-care, confined to bed or chair greater than 50% of waking hours Constitutional: no acute distress, (+) chronically ill, (+) cachectic HEENT: bitemporal wasting Neck: supple, normal range of motion CV: (+) tachycardic Chest: normal respiratory effort, on 2L NC Abdomen: soft, no tenderness, nondistended Skin: warm, dry, intact: Neuro: alert, Glascow Coma Score 15 LABS: Labs reviewed as indicated below: -- WBC 11.9 -- Hgb 11.7 IMAGIN07/07/2024 CT PE - pneumomediastinum, posterior mediastinum erosion, large hepatic lesions consistent with metastatic disease IMPRESSION and PLAN: Wai Crawford Jr. Is a 59 year old male with metastatic NSCLC here with concern for mediastinitis and possible esophageal perforation. Unfortunately, patient has a very poor prognosis. He has a goodgrasp of his disease and is very clear that he does not want any invasive measures. - No acute surgical intervention - Agree with palliative medicine consult - Please reach out with any further questions or concerns - Thoracic surgery will sign off at this time Patient was seen and discussed with Dr. Marilyn Jean MD General Surgery PGY-3 07/07/2024 8:57 PM Patient seen and studies reviewed. Wai Crawford is an unfortunate 59-year-old male with past medical history significant for stage IV lung cancer with metastatic disease to the liver and bone who has been receiving palliative radiation and chemotherapy. He presented to [facility] with productive cough and shortnessof breath. A CT scan of the chest was concerning for pneumomediastinum with mediastinitis and he was transferred to [facility] for further evaluation. Currently he is comfortable on 2 Lnasal cannula oxygen. Hemodynamics are stable off any pressor support. Review of the CT scan confirms likely mediastinitis with erosion of tumor mass into the posterior faye and /or possible focal e sophageal perforation. Wai has a catastrophic complication of his metastatic cancer. He understands that there is no curative therapy for his cancer or this complication. He does not want aggressive surgical intervention and prefers to go home. I believe this is a reasonable decision based on the extent of his disease. He was to be seen by Palliative Medicine later today. documented in this encounter Miscellaneous Notes * Care Plan - Lizeth Ralph RN - 07/08/2024 2:50 PM EST Clinical Goal(s): Patient will have adequate pain control (07/08/24 0700) Possible barriers to meeting goal(s)/advancing plan of care: Hx of pain/cancer diagnosis Stability of the patient: Moderately stable - low risk of patient condition declining or worsening Summary regarding today's goal(s): Met: Patient being discharged to home today. Recommendations: * Ancillary Progress Note - Angela Yanes MSW - 07/08/2024 2:45 PM EST CARE MANAGEMENT - ADULT DISCHARGE NOTE [facility] [place] [address] Name: Wai Crawford Jr. Location: [facility] A455/A Date: 07/08/2024 Time: 2:45 PM The following coordination of care and discharge plan has been coordinated with the care team, patient, family and/or caregiver according to the patients needs and preferences. Discharge Discharge Second Notice Important Message from Medicare delivered: No (07/08/241443) Was Caregiver/Family/Facility contacted regarding discharge: Yes (07/08/241443) Discharge Transportation: Family/Friends drive (07/08/241443) Date of scheduled discharge transportation: 07/08/24 (07/08/241443) Patient declined post-hospital transition of care recommendation: N/A (07/08/241443) Final Discharge Plan (Complete only at time of Discharge): Home with Services (07/08/24 1445) Home Medical Care - Admitted Since 07/07/2024 Service Provider Selected Services Address Phone Fax Patient Preferred Last Updated [facility] [address] [facility] [address] [phone] -- Angela Yanes MSW 07/08/2024 3221 Narrative: Per service, patient to discharge home today and plans to follow up with his palliative care team at [facility] tomorrow as scheduled. [facility] BYRON called office to clarify further; spoke to Nicole who was leaving a message for his palliative doctor to call this SW back. BYRON spoke with patient at bedside who reports he would like to discharge home with HH, wants PT/OT services at home. Patient declining any additional CM needs at this time; reports he is ready to leave and that his SO will be coming to get him. SW made referral to [facility] HH; reviewing now. SW also received return call from Sharon Rascon; patient's palliative care doctor. She reports that SW should initiate HH referral andthey will continue to follow with him in clinic for any further needs/discussions. No additional needs identified by patient/family/service. BYRON received call from Aster @ [facility]; she reports they are able to accept patient for SOC within 24-48 hours and will contact him directly to arrange first visit. BYRON made patient and service aware of the same. * Ancillary Progress Note - Angela Yanes MSW - 07/08/2024 2:37 PM EST HOME CARE REFERRAL FORM CARE MANAGEMENT [facility] [address] Referred By: NOLAN Senior Admission Date: 07/07/2024 Discharge Date: Discharge Time: Midday Start Date: 24-48 hrs after discharge Agency Referred To: [facility] Home Health Care - Phone: [phone]; Fax: [phone] PATIENT INFORMATION: Name: Wai Crawford Jr. Address: [address] [place] [id number] : 1965 Phone: There is no home phone number on file. SSN: [id number] County: [place] Caregiver / Teachable Person: Aleyda Raza Relationship: Partner Emergency Contacts: Extended Emergency Contact Information Primary Emergency Contact: Aleyda Raza [address]: [address] [place] [phone] [facility] Mobile Relation: Significant Other Secondary Emergency Contact: Marina Crawford Mobile Relation: Mother MEDICAL INFORMATION: Principal Diagnosis: Non-small cell lung cancer (NSCLC) (HCC) Diet: As per discharge instructions. Allergies: Percocet [oxycodone-acetaminophen] Isolation Type: Activity Restrictions: As ordered Isolation For: None HOME CARE ORDERS: (Discipline and Frequency): Shelter Assessment Disease Management and Teaching Medication Management and Teaching Lab work as indicated on discharge instructions PT/OT Evaluation and Treat Home Safety Evaluation Medications Dose, Frequency, & Route: As ordered Ordering Physician and Contact Information: Judy Denson DO Comments: PCP: PCP: KAYLEN PLATT [address] [place] [address] [address] [phone] D/C Physician: Judy Denson DO Insurance: See attached facesheet. * Ancillary Progress Note - Angela Yanes MSW - 07/08/2024 10:51 AM EST CARE MANAGEMENT - ADULT INITIAL SCREENING [facility] [place] [address] Name: Wai Crawford Jr. Location: [facility] A455/A Date: 07/08/2024 Time: 10:51 AM Discussed patient with the interdisciplinary care team. This Betting Agency Manager performed a chart review and met with patient at bedside to complete admission screen and assessed needs for transition planning. The animal care taker role and services were explained and emotional support was provided. Chief Complaint: No chief complaint on file. Prior Living Arrangements What was your living situation prior to admission/observation?: Independently;With Significant Other (07/08/241050) Living Quarters: House (07/08/241050) Number of steps to enter living quarters:: 2 (07/08/241050) Do you have serious difficulty walking or climbing stairs? (5 years old or older): Yes (07/07/241914) History of falling: No (07/08/24799) Prior Level of Functioning Describe the patient's ability prior to admission/observation to perform ADLs: Performs independently (07/08/241050) Requires assistance with: Dressing;Toileting;Bathing;Grooming (07/08/24799) Describe the patient's mobility status prior to admission: Patient requires assistance with ambulation (07/07/241914) Patient uses assistive device: Yes (07/07/241914) If yes, choose:: Cane;Walker (07/07/241914) Caregiver Information Patient Contacts Name Relation Home Work Mobile Aleyda Raza Significant Other [phone] Marina Crawford Mother [phone] Risk Stratification/Psychosocial/Care Gaps Risk Stratification Psycho Social / Medical Concerns Identified: Adjustment to illness/injury (07/08/241050) OBRA or OPTIONS needed for placement: No (07/08/241050) Readmission Risk Score: 14.37 (07/08/24800) AM-PAC Score With Stairs : 18 (07/08/24899) Prior to Admission Services Services Prior to Admission [employer]DEL [employer] Services (Services received within the last 30 days with exception, Psych within last two years): Durable Medical Equipment (07/08/241050) MEDICAL [employer]PAR[employer]US MODEL [employer]KER Durable Medical Equipment (DME) in home: Shower chair/bench;Cane;Walker Standard (07/08/241050) [place] Dept. of Aging (PDA) Waiver Program: N/A (07/08/241050) [employer] Transportation (Services received within the last 30 days): Family/Friends Personal Vehicle (07/08/24 1053) Outpatient Betting Agency Manager: No care restaurant team member to display Patient/Family Expectations: Prior to admission, patient lived with his significant other in a one-story house with 2 DEON. Patient reports that he was independent with ADLs and ambulation; uses a walker and cane. Patient also mentions that he has a shower chair at home as well. Patient's significant other provides all transportation for patient. Patient reports he was not active with HH but was in the process of getting [facility] HH services should he want them. SW offered to make referral and assist with set up of HH services while patient is admitted. Patient politely declined SW assistance and reports he will call to arrange services once discharged. Patient also asking about a lift recliner;SW reports that [employer] may have programs that could assist with cost of lift chair. Patient reports that he has the phone number of agency that would be able to help him get one and will call once discharged. For further screening information, please refer to the Care Management flow document. documented in this encounter Plan of Treatment Scheduled Procedures Name Priority Associated Diagnoses Date/Ti me COLONOSCOPY FLEXIBLE PROXIMAL DIAGNOSTIC Recall History of colon polyps Health Maintenance Due Date Last Done Comments DISCUSS TOBACCO CESSATION (REFER TO SMARTSET #3291) 1965 COVID-19 Vaccine (#1) 1971 Depression Monitoring 1978 Zoster Vaccines (1 of 2) 1985 Cologuard 2011 Fecal Occult Blood Test 2011 Sigmoidoscopy 2011 Colonoscopy 12/13/2023 12/12/2018, 12/03, 09/11/2013, Additional history exists Colorectal Cancer Screening 12/13/2023 Influenza Vaccine (FLU shot) (#1) 2024 O2 ASSESSMENT COMPLETED IN PAST YEAR FOR COPD 07/08/2025 07/08/2024 Lipid Panel 11/01/2027 11/01/2022, 10/06, 02/09/2016, Additional [...] Procedure Name Priority Date/Time Associated Diagnosis Comments BASIC METABOLIC PANEL Routine 07/08/2024 6:27 AM EST PHOSPHORUS Add-on 07/08/2024 6:27 AM EST CBC Routine 07/08/2024 6:27 AM EST MAGNESIUM Add-on 07/08/2024 6:27 AM EST MRSA SCREEN, PCR Routine 07/07/2024 8:22 PM EST documented in this encounter Results * (ABNORMAL) PHOSPHORUS (07/08/2024 6:27 AM EST) Phosphorus 2.4(L) 2.5 - 4.8 mg/dL 07/08/2024 8:26 AM EST [facility] Blood Venous blood specimen / Unknown Venipuncture / Unknown 07/08/2024 6:27 AM EST 07/08/2024 6:35 AM EST Judy Denson DO LAB BLOOD ORDERABLES [facility] [address] [place] [address] * MAGNESIUM (07/08/2024 6:27 AM EST) Magnesium 2.0 1.5 - 2.6 mg/dL 07/08/2024 8:26 AM EST [facility] Blood Venous blood specimen / Unknown Venipuncture / Unknown 07/08/2024 6:27 AM EST 07/08/2024 6:35 AM EST Judy Jade Janiya DUBOSE LAB BLOOD ORDERABLES [facility] [address] [place] [address] * (ABNORMAL) BASIC METABOLIC PANEL (07/08/2024 6:27 AM EST) BUN 15 6 - 20 mg/dL 07/08/2024 7:06 AM EST [facility] CREATININE 0.8 0.6 - 1.2 mg/dL 07/08/2024 7:06 AM EST [facility] EGFR >90 >=60 mL/min 07/08/2024 7:06 AM EST [facility] Comment:eGFR is calculated b ased on the CKD-EPI 2020 equation. SODIUM 133(L) 135 - 146 mmol/L 07/08/2024 7:06 AM EST [facility] POTASSIUM 4.7 3.5 - 5.1 mmol/L 07/08/2024 7:06 AM EST [facility] CHLORIDE 99 98 - 107 mmol/L 07/08/2024 7:06 AM EST [facility] CO2 26 22 - 32 mmol/L 07/08/2024 7:06 AM EST [facility] ANION GAP 8 7 - 15 mmol/L 07/08/2024 7:06 AM EST [facility] GLUCOSE 151(H) 70 - 120 mg/dL 07/08/2024 7:06 AM EST [facility] CALCIUM 10.4(H) 8.4 - 10.2 mg/dL 07/08/2024 7:06 AM EST LABORATORY [facility] Blood Venous blood specimen / Unknown Venipuncture / Unknown 07/08/2024 6:27 AM EST 07/08/2024 6:35 AM EST Lynn PELAEZ LAB BLOOD ORDERABLES [facility] [address] [place] [address] * (ABNORMAL) CBC (07/08/2024 6:27 AM EST) WBC 7.82 4.00 - 10.80 K/uL 07/08/2024 6:48 AM EST [facility] RBC 3.62 4.50 - 5.25 M/uL 07/08/2024 6:48 AM EST [facility] HGB 10.1(L) 14.0 - 16.8 g/dL 07/08/2024 6:48 AM EST [facility] HCT 32.8(L) 40.0 - 48.4 % 07/08/2024 6:48 AM EST [facility] MCV 90.6 82.0 - 99.5 fL 07/08/2024 6:48 AM EST [facility] MCH 27.9 27.0 - 34.0 pg 07/08/2024 6:48 AM EST [facility] MCHC 30.8 32.0 - 36.0 g/dL 07/08/2024 6:48 AM EST [facility] RDW 15.0 11.5 - 15.5 % 07/08/2024 6:48 AM EST [facility] PLT 268 140 - 400 K/uL 07/08/2024 6:48 AM EST [facility] MPV 9.8 6.6 - 11.1 fL 07/08/2024 6:48 AM EST [facility] nRBCs 0 <=0 /100 WBCs 07/08/2024 6:48 AM EST [facility] Blood Venous blood specimen / Unknown Venipuncture / Unknown 07/08/2024 6:27 AM EST 07/08/2024 6:35 AM EST Lynn PELAEZ LAB BLOOD ORDERABLES [facility] [address] [place] [address] * MRSA SCREEN, PCR (07/07/2024 8:22 PM EST) MRSA PCR Result Negative Negative 10:44 PM EST [facility] Comment:No Methicillin resis tant Staphylococcus aureus detected by PCR (amplified probe). Upper Respiratory Swab of internal nose / Unknown Non-blood Collection / Unknown 07/07/2024 8:22 PM EST 07/07/2024 9:03 PM EST Lynn PELAEZ LAB MICRO - GENERAL ORDERABLES LABORATORY [facility] [place] [address] [place] [address] documented in this encounter Visit Diagnoses Diagnosis Non-small cell lung cancer (NSCLC) (HCC)- Primary Esophageal perforation Perforation of esophagus Chest pain Chest pain, unspecified Pneumonitis Pneumonia, organism unspecified COPD exacerbation (HCC) Obstructive chronic bronchitis with exacerbation Hemoptysis Hemoptysis, unspecified COPD (chronic obstructive pulmonary disease) (HCC) Chronic airway obstruction, not elsewhere classified HTN, goal below 140/90 Unspecified essential hypertension Major depressive disorder Major depressive disorder, single episode, unspecified Tobacco user Tobacco use disorder 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) Severe protein-energy malnutrition (HCC) Other severe protein-calorie malnutrition Palliative care encounter Encounter for palliative care Goals of care, counseling/discussion Other specified counseling Cancer related pain Neoplasm related pain (acute) (chronic) documented in this encounter Administered Medications Inactive Administered Medications - up to 3 most recent administrations Medication Order MAR Action Action Date Dose Rate Site Acetaminophen (Tylenol) tab 975 mg 975 mg, Oral, Q6H PRN Pain, Mild, Fever >38C(100.5F), Starting on Mon07/08/24 at 0753, Until Mon07/08/24 at 2108, Maximum of 4 grams (4000 mg) per day. Azithromycin (Zithromax) tab 500 mg 500 mg, Oral, Daily(AM), First dose (after last modification) on 07/07/24 at 2100, Last dose on Nikia 07/11/24 at 0900, For 5 days Given 07/08/2024 8:58 AM EST 500 mg Given 07/07/2024 9:53 PM EST 500 mg Bisacodyl (Dulcolax) supp 10 mg 10 mg, Rectal, DAILY PRN Constipation, Starting on Mon07/08/24 at 0801, Until Mon07/08/24 at 2108 Given 07/08/2024 8:56 AM EST 10 mg chlorHEXIDINE (Periogard) 0.12 % oral rinse 15 mL 15 mL, Oral mucosal membrane, BID (799,1999), First dose on Mon07/07/24 at 1999, Until Discontinued, Include oral/gum/tooth brushing with medication. Use prepackaged oral kit suction tooth brush if available. Given 07/08/2024 8:55 AM EST 15 mL Given 07/07/2024 8:04 PM EST 15 mL cyclobenzaprine (Flexeril) tab 10 mg 10 mg, Oral, DAILY PRN Muscle spasms, Starting on Mon07/08/24 at 1218, Until Mon07/08/24 at 2108 Given 07/08/2024 1:21 PM EST 10 mg Docusate Sodium (Colace) oral liquid 100 mg 100 mg, Oral, BID (.AM/PM), First dose on Mon07/08/24 at 0900, Until Discontinued Given 07/08/2024 8:56 AM EST 100 mg Enoxaparin (Lovenox) inj 40 mg 40 mg, Subcutaneous, Daily(AM), First dose on Mon07/08/24 at 0900, Until Discontinued, If patient is on warfarin, inform provider if daily INR value is 2 or greater! Given 07/08/2024 8:55 AM EST 40 mg Abdomen Right Upper Gabapentin (Neurontin) cap 900 mg 900 mg, Oral, ONCE PRN Pain, Severe, Starting on Mon07/08/24 at 1218, Until Mon07/08/24 at 1229, For 1 dose Given 07/08/2024 12:29 PM EST 900 mg hydroCHLOROthiazide cap 12.5 mg 12.5 mg, Oral, Daily(AM), First dose on Mon07/08/24 at 1245, Until Discontinued, Component of lisinopril-HCTZ formulation Given 07/08/2024 12:29 PM EST 12.5 mg Lisinopril (Prinivil) tab 20 mg 20 mg, Oral, Daily(AM), First dose on Mon07/08/24 at 1245, Until Discontinued, Component of lisinopril-HCTZ formulation Given 07/08/2024 12:29 PM EST 20 mg Nicotine (Nicoderm CQ) 21 MG/24HR patch 1 Patch 1 Patch, Transdermal, Daily(AM), First dose on Mon07/08/24 at 0900, Until Discontinued, Do NOT cut the patch. Remove any Nicotine patches the patient may currently be wearing prior to applying the new patch. Place on clean hairless area. Remove for patient showers. WASTE INFO: Return packaging and waste medication in zip lock bag to pharmacy - [facility] container. Patch Applied 07/08/2024 8:55 AM EST 1 Patch Arm Left Upper Oral Hygiene: Mouth Swab with dentifrice Oral, Q4H LIMITED (00;04;12;16), First dose on Mon07/08/24 at 0000, Until Discontinued, To be used with 1.5% hydrogen peroxide solution or 0.05% cetylpyridium chloride oral rinse Given 07/08/2024 4:00 PM EST Given 07/08/2024 12:00 AM EST oxyCODONE (Roxicodone) oral syrup 20 mg 20 mg, Oral, Q6H PRN Pain, Breakthrough, Starting on 07/07/24 at 2028, Until Mon07/08/24 at 2107 Given 07/08/2024 1:21 PM EST 20 mg Given 07/08/2024 7:19 AM EST 20 mg Given 07/08/2024 1:18 AM EST 20 mg oxyCODONE CR (OxyCONTIN) tab 60 mg 60 mg, Oral, Q12H, First dose on 07/07/24 at 2115, Until Discontinued, This med should NOT be Crushed or Chewed Given 07/08/2024 8:55 AM EST 60 mg Given 07/07/2024 8:45 PM EST 60 mg Polyethylene Glycol 3350 (Miralax) oral powder 17 g 17 g (1 Packet), Oral, BID (0900,2100), First dose on Mon07/08/24 at 0900, Until Discontinued, Mix in 8 oz of water, juice, soda, coffee, or tea. Given 07/08/2024 8:56 AM EST 17 g potassium and sodium phosphate (Phos-Nak) oral powder 2 Packet 2 Packet, Oral, ONCE, On Mon07/08/24 at 0915, For 1 dose, Mix 1 packet in 2.5 ounces (75 mL) of water, stir well and administer promptly. 1 packet contains Phosphorus 250 mg (~8 mMoles) + potassium 280 mg (~7.125 mEq) + sodium 160mg (~7.125 mEq) Given 07/08/2024 8:56 AM EST 2 Packets predniSONE (Deltasone) tab 40 mg 40 mg, Oral, Daily(AM), First dose on 07/07/24 at 2100, Until Discontinued Given 07/07/2024 8:46 PM EST 40 mg predniSONE (Deltasone) tab 40 mg 40 mg, Oral, Daily(AM), First dose (after last modification) on Mon07/08/24 at 0900, Last dose on Mon07/11/24 at 0900, For 4 days Given 07/08/2024 8:56 AM EST 40 mg senna (Senokot) 1 Tablet 1 Tablet, Oral, BID (.AM/PM), First dose on Mon07/08/24 at 0900, Until Discontinued Given 07/08/2024 8:56 A M EST 1 Tablet sodium chloride 0.9 % flush peripheral yakov 3 mL 3 mL, IV Push, Q8H, First dose on Mon07/07/24 at 2200, Until Discontinued, Do not flush if lock, PICC, or central line not in place; IV infusing or unable to flush. Given 07/08/2024 2:00 PM EST 3 mL Given 07/08/2024 6:00 AM EST 3 mL Given 07/07/2024 10:00 PM EST 3 mL documented in this encounter Active and Recently Administered Medications Due to Daylight Saving Time, this section may contain times in both EDT and EST. Scheduled Medication Order 07/06/2024 07/07/2024 07/08/2024 Azithromycin (Zithromax) tab 500 mg (CANCELED) 500 mg, Oral, Daily(AM), First dose (after last modification) on 07/07/24 at 2100, Last dose on Mon07/11/24 at 0900, For 5 days 3113 (Given - Provider: Shonna Leal RN) 0858 (Given - Provider: Lizeth Ralph RN) chlorHEXIDINE (Periogard) 0.12 % oral rinse 15 mL 15 mL, Oral mucosal membrane, BID (799,1999), First dose on 07/07/24 at 2000, Until Discontinued, Include oral/gum/tooth brushing with medication. Use prepackaged oral kit suction tooth brush if available. 2003 (Given - Provider: Shonna Leal RN) 0855 (Given - Provider: Lizeth Ralph RN) Docusate Sodium (Colace) oral liquid 100 mg 100 mg, Oral, BID (.AM/PM), First dose on Mon07/08/24 at 0900, Until Discontinued 0856 (Given - Provid er: Lizeth Ralph RN) Enoxaparin (Lovenox) inj 40 mg 40 mg, Subcutaneous, Daily(AM), First dose on Mon07/08/24 at 0900, Until Discontinued, If patient is on warfarin, inform provider if daily INR value is 2 or greater! 0855 (Given - Provid er: Lizeth Ralph RN) hydroCHLOROthiazide cap 12.5 mg 12.5 mg, Oral, Daily(AM), First dose on Mon07/08/24 at 1245, Until Discontinued, Component of lisinopril-HCTZ formulation 1229 (Given - Provid er: Lizeth Ralph RN) Lisinopril (Prinivil) tab 20 mg 20 mg, Oral, Daily(AM), First dose on Mon07/08/24 at 1245, Until Discontinued, Component of lisinopril-HCTZ formulation 1229 (Given - Provid er: Lizeth Ralph RN) Nicotine (Nicoderm CQ) 21 MG/24HR patch 1 Patch 1 Patch, Transdermal, Daily(AM), First dose on Mon07/08/24 at 0900, Until Discontinued, Do NOT cut the patch. Remove any Nicotine patches the patient may currently be wearing prior to applying the new patch. Place on clean hairless area. Remove for patient showers. WASTE INFO: Return packaging and waste medication in zip lock bag to pharmacy - [facility] container. 0855 (Patch Applied - Provider: Lizeth Ralph RN)1708 (Due: Patch Removed - Provider: Discharge, Physician - Comment: Time automatically adjusted from order being discontinued) Oral Hygiene: Mouth Swab with dentifrice Oral, Q4H LIMITED (00;04;12;16), First dose on Mon07/08/24 at 0000, Until Discontinued, To be used with 1.5% hydrogen peroxide solution or 0.05% cetylpyridium chloride oral rinse 0000 (Given - Provid er: Shonna Leal RN)0400 (Not Given - Provider: Shonna Leal RN - Reason: Refused-Notify Provider)1200 (Not Given - Provider: Lizeth Ralph RN - Reason: Refused-Notify Provider - Comment: Dr. Guerrero notified)1600 (Given - Provider: Nory Roy RN) oxyCODONE CR (OxyCONTIN) tab 60 mg 60 mg, Oral, Q12H, First dose on Mon07/07/24 at 2115, Until Discontinued, This med should NOT be Crushed or Chewed 2044 (Given - Provider: Shonna Leal RN) 08 (Given - Provider: Lizeth Ralph RN) Polyethylene Glycol 3350 (Miralax) oral powder 17 g 17 g (1 Packet), Oral, BID (0900,2100), First dose on Mon07/08/24 at 0900, Until Discontinued, Mix in 8 oz of water, juice, soda, coffee, or tea. 0856 (Given - Provid er: Lizeth Ralph RN) potassium and sodium phosphate (Phos-Nak) oral powder 2 Packet (COMPLETED) 2 Packet, Oral, ONCE, On Mon07/08/24 at 0915, For 1 dose, Mix 1 packet in 2.5 ounces (75 mL) of water, stir well and administer promptly. 1 packet contains Phosphorus 250 mg (~8 mMoles) + potassium 280 mg (~7.125 mEq) + sodium 160mg (~7.125 mEq) 0856 (Given - Provid er: Lizeth Ralph RN) predniSONE (Deltasone) tab 40 mg (CANCELED) 40 mg, Oral, Daily(AM), First dose on Mon07/07/24 at 2100, Until Discontinued 2045 (Given - Provider: Shonna Leal RN) predniSONE (Deltasone) tab 40 mg (CANCELED) 40 mg, Oral, Daily(AM), First dose (after last modification) on Mon07/08/24 at 0900, Last dose on Nikia 07/11/24 at 0900, For 4 days 0856 (Given - Provid er: Lizeth Ralph RN) senna (Senokot) 1 Tablet 1 Tablet, Oral, BID (.AM/PM), First dose on Mon07/08/24 at 0900, Until Discontinued 0856 (Given - Provid er: Lizeth Ralph RN) sodium chloride 0.9 % flush peripheral yakov 3 mL 3 mL, IV Push, Q8H, First dose on Mon07/07/24 at 2200, Until Discontinued, Do not flush if lock, PICC, or central line not in place; IV infusing or unable to flush. 2200 (Given - Provider: Shonna Leal RN) 0600 (Given - Provider: Shonna Leal RN)1400 (Given - Provider: Lizeth Ralph RN) PRN Medication Order 07/06/2024 07/07/2024 07/08/2024 Acetaminophen (Tylenol) tab 975 mg 975 mg, Oral, Q6H PRN Pain, Mild, Fever >38C(100.5F), Starting on Mon07/08/24 at 0753, Until Mon07/08/24 at 2108, Maximum of 4 grams (4000 mg) per day. Albuterol Sulfate (Proventil) (2.5 MG/3ML) 0.083% inhalation solution 2.5 mg 2.5 mg, Nebulizer, Q4H PRN Dyspnea, Starting on Mon07/07/24 at 1929, Until Mon07/08/24 at 2108 Bisacodyl (Dulcolax) supp 10 mg 10 mg, Rectal, DAILY PRN Constipation, Starting on Mon07/08/24 at 0801, Until Mon07/08/24 at 2108 0856 (Given - Provid er: Lizeth Ralph RN) cyclobenzaprine (Flexeril) tab 10 mg 10 mg, Oral, DAILY PRN Muscle spasms, Starting on Mon07/08/24 at 1218, Until Mon07/08/24 at 2108 1321 (Given - Provid er: Lizeth Ralph RN) Gabapentin (Neurontin) cap 900 mg (COMPLETED) 900 mg, Oral, ONCE PRN Pain, Severe, Starting on Mon07/08/24 at 1218, Until Mon07/08/24 at 1229, For 1 dose 1229 (Given - Provid er: Lizeth Ralph RN) oxyCODONE (Roxicodone) oral syrup 20 mg 20 mg, Oral, Q6H PRN Pain, Breakthrough, Starting on 07/07/24 at 2028, Until 07/08/24 at 2108 0118 (Given - Provid er: Shonna Leal RN)0719 (Given - Provider: Lizeth Ralph RN)1321 (Given - Provider: Lizeth Ralph RN) documented in this encounter Advance Directives * No Code (Latest Code Status on File) Date Activated Date Inactivated Comments 07/07/2024 8:01 PM 07/08/2024 9:08 PM This order r eflects the patients [...] Advance Directives occurred with: Patient Care Teams Scientist Propagator Relationship Specialty Start Date End Date Kaylen Platt CRNP [address] [address] PCP - General Nurse Practitioner 07/02/13 documented as of this encounter
--- OUTSIDE RECORDS SUMMARY | 2024-07-13 03:14 | External Medical Summary ---
Author Name Unknown Address Unknown Organization [id number]:LABORATORY [facility] - [address] [place] [address] Laboratory Report Ordering Provider Test Date Status TROY TANNER 07/07/2024 11:22:07 Final Less than 0.5 ng/mL: Low ris k for progression to sepsis. Review patients condition for localized infections.

0.5 to 2.0 ng/mL: Intermediate risk for progresion to sepsis. Review underlying conditions. Recommend repeat PCT after 6 hours has elapsed.

Greater than 2.0 ng/mL: high risk for progression to sepsis unless other causes are known. Observation Date Value Abnormality Reference (Units ) Status Procalcitonin [Mass/volume] in Serum or Plasma by Immunoassay 07/07/2024 11:22:07 0.13 Above high normal <0.10 (ng/mL) Final Performing Location LABORATORY [facility] - [address] [place] [address]
--- OUTSIDE RECORDS SUMMARY | 2024-07-13 03:14 | External Medical Summary ---
Author Name Unknown Address Unknown Organization K01:[facility] - [address] [place] [address] Laboratory Report Ordering Provider Test Date Status RAISSA WILLIAMSON 07/08/2024 06:27:00 Final Observation Date Value Abnormality Reference (Units ) Status Phosphate 07/08/2024 06:27:00 2.4 Below low normal 2.5 -4.8 (mg/dL) Final Performing Location [facility] - [address] [place] [address]
--- OUTSIDE RECORDS SUMMARY | 2024-07-13 03:14 | External Medical Summary ---
Author Name Unknown Address Unknown Organization K01:[facility] - [address] [place] [address] Laboratory Report Ordering Provider Test Date Status RAISSA WILLIAMSON 07/08/2024 06:27:00 Final Observation Date Value Abnormality Reference (Units ) Status Magnesium 07/08/2024 06:27:00 2.0 1.5-2.6 (m g/dL) Final Performing Location [facility] - [address] [place] [address]
--- OUTSIDE RECORDS SUMMARY | 2024-07-13 03:14 | External Medical Summary ---
Author Name Unknown Address Unknown Organization K1F:[facility]ATORY [facility] - [address] [place] [address] Laboratory Report Ordering Provider Test Date Status TROY TANNER 07/07/2024 14:53:00 Final Observation Date Value Abnormality Reference (Units ) Status Lactic Acid 07/07/2024 14:53:00 1.5 0.4-2.0 (mmol/L) Final Performing Location [facility]ATORY [facility] - [address] [place] [address]
--- OUTSIDE RECORDS SUMMARY | 2024-07-13 03:14 | External Medical Summary ---
Author Name Unknown Address Unknown Organization K01:LABORATORY [facility] [place] - [address] [place] [address] Laboratory Report Ordering Provider Test Date Status CRIS BAEZAZULEYKA 07/07/2024 20:22:09 Final Observation Date Value Abnormality Reference (Units ) Status Methicillin resistant Staphylococcus aureus (MRSA) DNA [Presence] in Nose by HECTOR with probe detection 07/07/2024 20:22:09 Negative Negative Final No Methicillin resistant Sta phylococcus aureus detected by PCR (amplified probe). Performing Location LABORATORY [facility] - [address] [place] [address]
--- OUTSIDE RECORDS SUMMARY | 2024-07-13 03:15 | External Medical Summary ---
Author Name Unknown Address Unknown Organization [id number]:LABORATORY [facility] - [address] [place] [address] Laboratory Report Ordering Provider Test Date Status TROY TANNER 07/07/2024 11:22:07 Final Observation Date Value Abnormality Reference (Units ) Status CK 07/07/2024 11:22:07 43 39-308 (U/ L) Final Performing Location LAB[facility]ATORY [facility] - [address] [place] [address]
--- OUTSIDE RECORDS SUMMARY | 2024-07-13 03:15 | External Medical Summary ---
Author Name Unknown Address Unknown Organization K1F:LABORATORY [facility] - [address] [place] [address] Laboratory Report Ordering Provider Test Date Status FLORESTROY 07/07/2024 11:22:07 Final Observation Date Value Abnormality Reference (Units ) Status WBC, Total 07/07/2024 11:22:07 11.96 Above high normal 4.00-10.80 (K/uL) Final RBC 07/07/2024 11:22:07 4.54 4.50-5.25 (M/uL) Final Hemoglobin 07/07/2024 11:22:07 12.7 Below low normal 14.0-16.8 (g/dL) Final HCT 07/07/2024 11:22:07 40.3 40.0-48.4 (%) Final MCV 07/07/2024 11:22:07 88.8 82.0-99.5 (fL) Final MCH 07/07/2024 11:22:07 28.0 27.0-34.0 (pg) Final MCHC 07/07/2024 11:22:07 31.5 32.0-36.0 (g/dL) Final RDW 07/07/2024 11:22:07 15.5 11.5-15.5 (%) Final Platelets 07/07/2024 11:22:07 379 140-400 (K/uL) Final MPV 07/07/2024 11:22:07 9.4 6.6-11.1 (fL) Final Nucleated erythrocytes/100 leukocytes [Ratio] in Blood by Automated count 07/07/2024 11:22:07 0 <=0 (/100 WBCs) Final Performing Location LABORATORY [facility] - [address] [place] [address]
--- OUTSIDE RECORDS SUMMARY | 2024-07-13 03:15 | External Medical Summary ---
Author Name Unknown Address Unknown Organization K1F:LABORATORY [facility] - [address] [place] [address] Laboratory Report Ordering Provider Test Date Status TROY TANNER 07/07/2024 11:22:07 Final Observation Date Value Abnormality Reference (Units ) Status SYNC LEUKOCYTES IN BLOOD BY AUTOMATED COUNT 07/07/2024 11:22:07 11.96 Above high normal 4.00-10.80 (K/uL) Final Segs 07/07/2024 11:22:07 85.2 Above high normal 40.0-75.0 (%) Final Lymphs % 07/07/2024 11:22:07 4.8 Below low normal 18.0-42.0 (%) Final Monos 07/07/2024 11:22:07 8.7 1.0-11.0 (%) Final Eosinophils 07/07/2024 11:22:07 0.4 0.0-6.0 (%) Final Basos 07/07/2024 11:22:07 0.4 0.0-2.0 (%) Final Immature Granulocyte, Percent 07/07/2024 11:22:07 0.5 0.0-2.0 (%) Final Absolute Segs 07/07/2024 11:22:07 10.18 Above high normal 1.80-7.70 (K/uL) Final Lymphs, absolute 07/07/2024 11:22:07 0.58 Below low normal 1.00-4.80 (K/ul) Final Monos, Abs 07/07/2024 11:22:07 1.04 0.00-1.10 (K/uL) Final Eos, Abs 07/07/2024 11:22:07 0.05 0.00-0.70 (K/uL) Final Basos, Abs 07/07/2024 11:22:07 0.05 0.00-0.20 (K/uL) Final Immature Granulocytes, Number 07/07/2024 11:22:07 0.06 0.00-0.20 (K/uL) Final Performing Location LABORATORY [facility] - [facility] [address] [place] [address]
--- OUTSIDE RECORDS SUMMARY | 2024-07-13 03:15 | External Medical Summary ---
Author Name Unknown Address Unknown Organization K1F:LABORATORY [facility] - [address] [place] [address] Laboratory Report Ordering Provider Test Date Status TROY TANNER 07/07/2024 11:22:07 Final Warfarin Therapy
INR: 2 .0-3.0 conventional anticoagulation
INR: 2.5- 3.5 high intensity anticoagulation Observation Date Value Abnormality Reference (Units ) Status PT 07/07/2024 11:22:07 13.8 11.6-15.2 (seconds) Final INR 07/07/2024 11:22:07 1.1 0.8-1.2 Final Performing Location LABORATORY [facility] - [address] [place] [address]
--- OUTSIDE RECORDS SUMMARY | 2024-07-13 03:15 | External Medical Summary ---
Author Name Unknown Address Unknown Organization K1F:LABORATORY [facility] - [address] [place] [address] Laboratory Report Ordering Provider Test Date Status TROY TANNER 07/07/2024 11:22:07 Final Exclude Heart Failure: <300 pg/mL
Diagnose Heart Failure:
Age <50 yr: >450 pg/mL
50-75 yr: >900 pg/mL
>75 yr: >1800 pg/mL
GFR is 30-59 mL/min: >1200 pg/mL or Age- adjusted values
GFR <30 mL/min: do not use, not reliable

Prognostic threshold: 1000 pg/mL Observation Date Value Abnormality Reference (Units ) Status BNP, Pro-hormone 07/07/2024 11:22:07 331 Above high no rmal <300 (pg/mL) Final Performing Location LABORATORY [facility] - [address] [place] [address]
--- OUTSIDE RECORDS SUMMARY | 2024-07-13 03:15 | External Medical Summary ---
Author Name Unknown Address Unknown Organization K1F:LABORATORY [facility] - [address] [place] [address] Laboratory Report Ordering Provider Test Date Status TROY TANNER 07/07/2024 11:22:07 Final Observation Date Value Abnormality Reference (Units ) Status Troponin T 07/07/2024 11:22:07 20 <=22 (ng/ L) Final Performing Location LABORATORY [facility] - [address] [place] [address]
[2024-07-13] MEDS: NSS + 20MEQ KCL 20 MEQ/1,000 ML BAG IV SCH (03:36)
--- OUTSIDE RECORDS SUMMARY | 2024-07-13 04:41 | External Medical Summary | Summary of Care ---
Author Name Unknown Organization [facility] Address [address] , [place] Care Team Providers Care Finish Cleaner Name Role Phone Lyssa Platt Primary Care Provid er Reason for Visit * Reason Comments Nutritional Services Documentation Encounter Details Date Type Department Care Team (Late st Contact Info) Description 07/12/2024 11:30 AM EST Scheduled Telephone Nutrition Services, [address] [facility], [address] [place] [address] Yudi Burns, RDN [address] [place] [address] Allergies Active Allergy Reactions Criticality Noted Date Comments Oxycodone-Acetaminophen Nausea/vomiting 008 documented as of this encounter (statuses as of 07/12/2024) Medications GABAPENTIN 300 MG PO TABS three tablets once daily as needed Active FLEXERIL 10 MG PO TABS as directed as needed Active LISINOPRIL-HYDRO CHLOROTHIAZIDE 20-12.5 MG PO TABS 1 tablet daily Activ e HYDROCODONE-ACET AMINOPHEN 7.5-325 MG PO TABS 4 times a day (lower back pain) Active Albuterol Sulfate (PROVENTIL HFA) 108 (90 Base) MCG/ACT AERSIndications: LRTI (lower respiratory tract infection) Inhale 2 Puffs by mouth every 4 hours as needed for Cough, Shortness of Breath or Wheezing. 1 Inhaler 9 Active documented as of this encounter (statuses as of 07/12/2024) Active Problems Problem Noted Date Diagnosed Date [...] below 140/90 10/22/2001 Major depressive disorder 10/22/2001 Overview (06/27/2017): ICD-10 update of inactive term Major depressive disorder 10/22/2001 Overview (06/27/2017): ICD-10 update of inactive term HTN, goal below 140/90 10/22/2001 documented as of this encounter (statuses as of 07/12/2024) Resolved Problems Problem Noted Date Diagnosed Date Resolved Date Hemoptysis 07/07/2024 07/08/2024 COPD exacerbation 01/03/2023 07/08/2024 documented as of this encounter (statuses as of 07/12/2024) Immunizations Name Administration Dates Next Due Pneumococcal Conjugate Vacci ne, 20-valent ([id number]) 2023(Deferred: Patient Refused - Pt refusing vaccine) [...] Assigned at Male 01/03/2023 4:34 PM EDT Legal Sex Male 5:50 AM EST Gender Identity Male 01/03/2023 4:34 PM EDT Sexual Orientation Straight 01/03/2023 4: 31 PM EDT documented as of this encounter Functional Status * Are you deaf or do you have serious difficulty hearing? Answer Date of Assessment Author No 07/07/2024 7:15 PM Shonna aLnge RN * Are you blind or do you have serious difficulty seeing, even when wearing glasses? Answer Date of Assessment Author No 07/07/2024 7:15 PM Shonna Lange RN * Do you have serious difficulty walking or climbing stairs? (5 years old or older) Answer Date of Assessment Author Yes 07/07/2024 7:15 PM Shonna Lange RN * Do you have difficulty dressing or bathing? (5 years old or older) Answer Date of Assessment Author Yes 07/07/2024 7:15 PM Shonna Lange RN * Because of a physical, mental, or emotional condition, do you have difficulty doing errands alone such as visiting a doctors office or shopping? (15 years old or older) Answer Date of Assessment Author Yes 07/07/2024 7:15 PM Shonna Lange RN documented as of this encounter Mental Status * Because of a physical, mental, or emotional condition, do you have serious difficulty concentrating, remembering, or making decisions? (5 years old or older) Answer Entry Date Author No 07/07/2024 7:15 PM EST Shonna Leal RN documented in this encounter Miscellaneous Notes * Telephone Encounter - Yudi Burns RDN - 07/12/2024 12:59 PM EST Patient assessed with severe malnutrition during recent inpatient stay. Patient contacted via telephone to discuss current nutritional risk. Patient not able to be reached by LEE. Voicemail left for patient. Patient sent "Take Charge of your Nutrition" brochure via [employer] and/or postal mail. documented in this encounter Plan of Treatment Scheduled Procedures Name Priority Associated Diagnoses Date/Ti me COLONOSCOPY FLEXIBLE PROXIMAL DIAGNOSTIC Recall History of colon polyps Health Maintenance Due Date Last Done Comments DISCUSS TOBACCO CESSATION (R EFER TO SMARTSET #3291) 1966 COVID-19 Vaccine (#1) 1971 Depression Monitoring 1978 Zoster Vaccines (1 of 2) 1985 Influenza Vaccine (FLU shot) (#1) 2024 O2 ASSESSMENT COMPLETED IN P AST YEAR FOR COPD 07/08/2025 07/08/2024 Colonoscopy Discontinued 12/12/2018, 12/03, 09/11/2013, Additional history exists Colorectal Cancer Screening Discontinued RETIRED - COLONOSCOPY-EVERY 5 YRS AGES 18-100 Discontinued 12/12/2018, 12/12/2018, 09/11/2013, Additional history exists Cologuard Discontinued Fecal Occult Blood Test Discontinued Sigmoidoscopy Discontinued documented as of this encounter Medical Devices Not on filedocumented as of this encounter Advance Directives * [...] Advance Directives occurred with: Patient Care Teams Finish Cleaner Relationship Specialty Start Date End Date Lyssa Platt CRNP [address] [place] [address] PCP - General Nurse Practitioner 07/02/13 documented as of this encounter
[2024-07-13] MEDS: LEVOTHYROXINE SODIUM 25 MCG TABLET PO SCH (06:10)
[2024-07-13] MEDS: oxyCODONE HCL IR 5 MG TAB (IMMEDIATE RELEASE) PO PRN (06:16)
[2024-07-13] MEDS: FLUTICASONE FUROATE 100MCG 14 PUFFS/INHALER INH SCH (08:45)
[2024-07-13] MEDS: UMECLIDINIUM/VILANTEROL 62.5/25MCG 7 PUFFS/INHALER INH SCH (08:46)
[2024-07-13] MEDS: LUBIPROSTONE 8 MCG CAP PO SCH (08:47)
--- NOTE | 2024-07-13 12:55 | Hospitalist Progress Note ---
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 every 12 hours Oxycodone 20 mg p.o. every 6 hours as needed for severe cancer pain Dilaudid 1 mg IV every 3 hours as needed for severe pain breakthrough Hypercalcemia of malignancy 12.7, to be treated with pamidronate 60 mg IV x 1, and then followed serially Status post 2 L normal saline bolus from the ED, then maintenance NSS + KCl 20 mEq at 80 mL/h x 1 L Albuterol HFA 2 puffs every 6 hours as needed DuoNebs every 2 hours as needed Umeclidinium-vilanterol 1 inhalation every morning Zofran 4 mg IV every 6 hours as needed Zyprexa 5 mg every evening as needed for insomnia or agitation Oncology consult appreciated Consult Palliative medicine-pending Admission and Anticipated Discharge Date Admission Date: July 12, 2024 Subjective Pt complaining of severe pain in his bones, only alleviated by Dilaudid. Review of Systems Review of Systems: CONST: Negative for fever, body aches and chills. HENT: Negative for neck pain/stiffness, headache, congestion, sore throat, swelling. EYES: Negative for discharge/pain or vision changes. RESP: Negative for cough/hemoptysis and shortness of breath. CV: Negative chest pain, difficulty breathing, palpitations. ABD: Negative pain, nausea, vomiting. : Negative increase frequency, dysuria, blood in urine or stool. MUSC: severe pain in bones SKIN: Negative rash, lesions/sores. NEURO: Negative headache, dizziness, weakness. Physical Exam Physical Exam: GENERAL APPEARANCE NAD, activity normal for age, well developed/ well nourished, no cyanosis, pallor, or diaphoresis. EYES lids/conjunctiva normal. EARS/NOSE/THROAT Mucous membranes moist, nares normal, lips/teeth normal uvula midline without oral pharyngeal erythema, exudate or swelling TMs normal bilaterally. No lymphangitis/lymphedema. HEAD/NECK normocephalic atraumatic, no facial trauma, neck is supple. RESPIRATORY respiratory effort normal, speaks in full sentences, no tripod position, no accessory muscle use. Lungs clear to auscultation without rhonchi, wheezes, rales CARDIAC Regular rate and rhythm, no edema. ABDOMINAL Soft, ND/NT. No evidence of fluid wave. No pulsatile masses on exam, rebound tenderness, Sanchez sign or pain over Mcburney's point. MUSCLES/EXTREMITIES No abnormal range of motion, no swelling. SKIN Warm, pink and dry. No rashes, dermatoses, petechiae or lesions. NEUROLOGICAL Speech is clear and appropriate. Normal level of consciousness. Gait and coordination are normal. 5/5 strength in all extremities. PSYCH Normal mood and affect. Judgement/competence is appropriate Results & Data Results & Data Vital Signs (Past 12 Hours) Vital Signs Temp Pulse Pulse Resp BP Pulse Ox O2 Del Method 07/13/24 11:26 36.4 C L 103 H 16 134/97 100 Room Air 07/13/24 07:37 Nasal Cannula 07/13/24 07:27 36.6 C 79 18 142/93 H 92 Room Air 07/13/24 07:21 99 H 07/13/24 02:56 36.6 C 98 H 20 133/90 98 Nasal Cannula O2 Flow Rate 07/13/24 11:26 07/13/24 07:37 07/13/24 07:27 07/13/24 07:21 07/13/24 02:56 2 PG Care Time/CCT Total # of Minutes Spent Total Time Spent with Patient: Total time spent is greater than 50% in coordination of care (as documented) at patient's floor/unit and/or counseling patient: Coding Level of Care Code 16529 SUB INP/OBS CARE 2/35MIN Diagnoses Metastatic carcinoma to bone C79.51 Cancer related pain G89.3 Hypercalcemia E83.52 Palliative chemotherapy underway Z79.899 Acute on chronic respiratory failure with hypoxia J96.21 COPD (chronic obstructive pulmonary disease) J44.9
[2024-07-13] MEDS: cefTRIAXone SODIUM 1,000 MG/50 ML BAG IV SCH (15:06)
[2024-07-13] MEDS: OLANZapine 5 MG TABLET PO PRN (20:25)
[2024-07-13] MEDS: ZOLPIDEM TARTRATE 5 MG TAB PO PRN (21:22)
--- NOTE | 2024-07-14 10:47 | Hospitalist Progress Note ---
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 every 12 hours Oxycodone 20 mg p.o. every 6 hours as needed for severe cancer pain Dilaudid 1 mg IV every 2 hours as needed for severe pain breakthrough Hypercalcemia of malignancy 12.7, to be treated with pamidronate 60 mg IV x 1, and then followed serially Status post 2 L normal saline bolus from the ED, then maintenance NSS + KCl 20 mEq at 80 mL/h x 1 L Albuterol HFA 2 puffs every 6 hours as needed DuoNebs every 2 hours as needed Umeclidinium-vilanterol 1 inhalation every morning Zofran 4 mg IV every 6 hours as needed Zyprexa 5 mg every evening as needed for insomnia or agitation Oncology consult appreciated Consult Palliative medicine-pending Admission and Anticipated Discharge Date Admission Date: July 12, 2024 Subjective Pt complaining of severe pain in his bones, not adequately controlled with current Dilaudid dose. Review of Systems Review of Systems: CONST: Negative for fever, body aches and chills. HENT: Negative for neck pain/stiffness, headache, congestion, sore throat, swelling. EYES: Negative for discharge/pain or vision changes. RESP: Negative for cough/hemoptysis and shortness of breath. CV: Negative chest pain, difficulty breathing, palpitations. ABD: Negative pain, nausea, vomiting. : Negative increase frequency, dysuria, blood in urine or stool. MUSC: Negative for muscle aches, edema. SKIN: Negative rash, lesions/sores. NEURO: Negative headache, dizziness, weakness. Physical Exam Physical Exam: GENERAL APPEARANCE NAD, activity normal for age, well developed/ well nourished, no cyanosis, pallor, or diaphoresis. EYES lids/conjunctiva normal. EARS/NOSE/THROAT Mucous membranes moist, nares normal, lips/teeth normal uvula midline without oral pharyngeal erythema, exudate or swelling TMs normal bilaterally. No lymphangitis/lymphedema. HEAD/NECK normocephalic atraumatic, no facial trauma, neck is supple. RESPIRATORY respiratory effort normal, speaks in full sentences, no tripod position, no accessory muscle use. Lungs clear to auscultation without rhonchi, wheezes, rales CARDIAC Regular rate and rhythm, no edema. ABDOMINAL Soft, ND/NT. No evidence of fluid wave. No pulsatile masses on exam, rebound tenderness, Sanchez sign or pain over Mcburney's point. MUSCLES/EXTREMITIES No abnormal range of motion, no swelling. SKIN Warm, pink and dry. No rashes, dermatoses, petechiae or lesions. NEUROLOGICAL Speech is clear and appropriate. Normal level of consciousness. Gait and coordination are normal. 5/5 strength in all extremities. PSYCH Normal mood and affect. Judgement/competence is appropriate Results & Data Results & Data Vital Signs (Past 12 Hours) Vital Signs Temp Pulse Pulse Resp BP Pulse Ox O2 Del Method 07/14/24 08:16 37.6 C H 108 H 18 170/110 H 95 Room Air 07/14/24 07:22 Room Air, Nasal Cannula 07/14/24 07:04 112 H 07/14/24 03:34 36.6 C 104 H 18 155/92 H 93 Room Air 07/13/24 23:16 36.6 C 118 H 20 165/115 H 93 Room Air PG Care Time/CCT Total # of Minutes Spent Total Time Spent with Patient: Total time spent is greater than 50% in coordination of care (as documented) at patient's floor/unit and/or counseling patient: Coding Level of Care Code 70291 SUB INP/OBS CARE 2/35MIN Diagnoses Metastatic carcinoma to bone C79.51 Cancer related pain G89.3 Hypercalcemia E83.52 Palliative chemotherapy underway Z79.899 Acute on chronic respiratory failure with hypoxia J96.21 COPD (chronic obstructive pulmonary disease) J44.9
[2024-07-14] MEDS: HYDROmorphone INJ 1 MG/ML SYRINGE IV PRN (13:24)
--- NOTE | 2024-07-14 20:38 | Electrocardiogram Report ---
Test Reason : Blood Pressure : */* mmHG Vent. Rate : 113 BPM Atrial Rate : 113 BPM P-R Int : 140 ms QRS Dur : 82 ms QT Int : 322 ms P-R-T Axes : 52 65 80 degrees QTcB Int : 441 ms Sinus tachycardia Possible Anterior infarct (cited on or before 13-May-2024) Abnormal ECG When compared with ECG of 13-May-2024 13:47, No significant change was found Confirmed by Clem Aldana ([id number]) on 07/14/2024 8:38:49 PM Referred By: REFERRED SELF Confirmed By: Clem Aldana
[2024-07-15 08:31] LABS: Basophils # (auto) 0.04 K/uL (0.00-0.20); Basophils % (auto) 0.5 %; Eosinophils # (auto) 0.07 K/uL (0.00-0.50); Eosinophils % (auto) 0.8 %; Hematocrit (blood only) 37.6 % (42.0-52.0); Hemoglobin 11.7 g/dl (14.0-18.0); Immature Granulocytes # (auto) 0.06 K/uL (0.01-0.20); Immature Granulocytes % (auto) 0.7 %; Lymphocytes # (auto) 0.74 K/uL (1.20-3.40); Lymphocytes % (auto) 8.6 %; Mean Corpuscular Hemoglobin 27.5 pg (25.0-34.0); Mean Corpuscular Hgb Conc 31.1 g/dL (32.0-36.0); Mean Corpuscular Volume 88.3 fL (80.0-100.0); Mean Platelet Volume 9.6 fL (9.4-12.4); Monocytes # (auto) 1.14 K/uL (0.11-0.59); Monocytes % (auto) 13.3 %; Neutrophils # (auto) 6.54 K/uL (1.40-6.50); Neutrophils % (auto) 76.1 %; Platelet Count 337 K/uL (130-400); RDW Coefficient of Variation 15.9 % (11.5-14.5); RDW Standard Deviation 50.9 fL (36.4-46.3); Red Blood Count 4.26 M/uL (4.70-6.10); White Blood Count 8.59 K/ul (4.8-10.8)
[2024-07-15 08:48] LABS: BUN Creatinine Ratio 17.6 (10-20); Calcium 10.8 mg/dl (8.6-10.3); Creatinine Clr Calc Pharmacy 81.2 ml/min; Potassium 4.7 mmol/L (3.5-5.1)
--- NOTE | 2024-07-15 11:34 | Hospitalist Progress Note ---
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 every 12 hours Oxycodone 20 mg p.o. every 6 hours as needed for severe cancer pain Dilaudid 1 mg IV every 2 hours as needed for severe pain breakthrough Hypercalcemia of malignancy 12.7, to be treated with pamidronate 60 mg IV x 1, and then followed serially Status post 2 L normal saline bolus from the ED, then maintenance NSS + KCl 20 mEq at 80 mL/h x 1 L Albuterol HFA 2 puffs every 6 hours as needed DuoNebs every 2 hours as needed Umeclidinium-vilanterol 1 inhalation every morning Zofran 4 mg IV every 6 hours as needed Zyprexa 5 mg every evening as needed for insomnia or agitation Oncology consult appreciated Consult Palliative medicine-pending Admission and Anticipated Discharge Date Admission Date: July 12, 2024 Subjective Pt still complaining of severe pain in his bones, awaiting palliative care evaluation. Review of Systems Review of Systems: CONST: Negative for fever, body aches and chills. HENT: Negative for neck pain/stiffness, headache, congestion, sore throat, swelling. EYES: Negative for discharge/pain or vision changes. RESP: Negative for cough/hemoptysis and shortness of breath. CV: Negative chest pain, difficulty breathing, palpitations. ABD: Negative pain, nausea, vomiting. : Negative increase frequency, dysuria, blood in urine or stool. MUSC: Negative for muscle aches, edema. SKIN: Negative rash, lesions/sores. NEURO: Negative headache, dizziness, weakness. Physical Exam 2 Physical Exam: GENERAL APPEARANCE NAD, activity normal for age, well developed/ well nourished, no cyanosis, pallor, or diaphoresis. EYES lids/conjunctiva normal. EARS/NOSE/THROAT Mucous membranes moist, nares normal, lips/teeth normal uvula midline without oral pharyngeal erythema, exudate or swelling TMs normal bilaterally. No lymphangitis/lymphedema. HEAD/NECK normocephalic atraumatic, no facial trauma, neck is supple. RESPIRATORY respiratory effort normal, speaks in full sentences, no tripod position, no accessory muscle use. Lungs clear to auscultation without rhonchi, wheezes, rales CARDIAC Regular rate and rhythm, no edema. ABDOMINAL Soft, ND/NT. No evidence of fluid wave. No pulsatile masses on exam, rebound tenderness, Sanchez sign or pain over Mcburney's point. MUSCLES/EXTREMITIES No abnormal range of motion, no swelling. SKIN Warm, pink and dry. No rashes, dermatoses, petechiae or lesions. NEUROLOGICAL Speech is clear and appropriate. Normal level of consciousness. Gait and coordination are normal. 5/5 strength in all extremities. PSYCH Normal mood and affect. Judgement/competence is appropriate Results & Data Results & Data Vital Signs (Past 12 Hours) Vital Signs Temp Pulse Pulse Pulse Resp BP BP 07/15/24 11:25 36.8 C 89 20 139/89 07/15/24 08:26 36.6 C 118 H 16 130/86 07/15/24 07:35 07/15/24 05:22 108 H 07/15/24 03:46 36.9 C 100 H 18 110/56 L Pulse Ox O2 Del Method 07/15/24 11:25 94 Room Air 07/15/24 08:26 93 Room Air 07/15/24 07:35 Room Air, Nasal Cannula 07/15/24 05:22 07/15/24 03:46 94 Room Air PG Care Time/CCT Total # of Minutes Spent Total Time Spent with Patient: Total time spent is greater than 50% in coordination of care (as documented) at patient's floor/unit and/or counseling patient: Coding Level of Care Code 47389 SUB INP/OBS CARE 2/35MIN Diagnoses Metastatic carcinoma to bone C79.51 Cancer related pain G89.3 Hypercalcemia E83.52 Palliative chemotherapy underway Z79.899 Acute on chronic respiratory failure with hypoxia J96.21 COPD (chronic obstructive pulmonary disease) J44.9
[2024-07-15] MEDS: ACETAMINOPHEN 325 MG TAB PO PRN (19:27)
--- NOTE | 2024-07-16 08:18 | XRay Report ---
XR chest 1V portable CLINICAL HISTORY: Aspiration. COMPARISON STUDY: Chest CT May 13, 2024. Chest radiograph July 12, 2024. FINDINGS: A left subclavian [id number] is in place. There is no pneumothorax. Small bilateral pleu ral effusions are present. Multifocal bibasilar opacities are also noted. There is pulmonary vascular congestion. Cardiomediastinal silhouette is stable. IMPRESSION: 1. Multifocal bibasilar opacities suggestive of pneumonia or aspiration pneumonitis. 2. Small bilateral pleural effusions. 3. Pulmonary vascular congestion. ACT 112: Negative or not required by law. Electronically signed by: Andres Alan M.D. 07/16/2024 8:16 AM
[2024-07-16] MEDS ORDERED: oxyCODONE HCL IR 5 MG TAB (IMMEDIATE RELEASE) PO PRN (11:21)
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
[2024-07-16] MEDS: fentaNYL 75 MCG/HR TDSY TD SCH (11:51)
--- NOTE | 2024-07-16 12:25 | Hospitalist Progress Note ---
Date of Service July 16, 2024 Assessment & Plan (1) Metastatic carcinoma to bone: Plan: Poor prognosis Palliative care consult appreciated Pt realistic about his impending Improvement of pain control with fentanyl transdermal Insistent on home care and dose not want to be placed (2) Cancer related pain: Plan: Fentayl transdermal added by pallative care Continue oxycodone extended release 60 mg p.o. every 12 hours Oxycodone 20 mg p.o. every 6 hours as needed for severe cancer pain Dilaudid 1 mg IV every 2 hours as needed for severe pain breakthrough (3) Hypercalcemia: Plan: Hypercalcemia of malignancy 12.7, to be treated with pamidronate 60 mg IV x 1 Ca+ down from 12.7 to 10.8 (4) Palliative chemotherapy underway: (5) Acute on chronic respiratory failure with hypoxia: Plan: Albuterol HFA 2 puffs every 6 hours as needed DuoNebs every 2 hours as (6) COPD (chronic obstructive pulmonary disease): Plan: Umeclidinium-vilanterol 1 inhalation every morning Plan Pt will benefit from [employer] that con offer IV opioid infusions. Case management, palliative care working on plan. Admission and Anticipated Discharge Date Admission Date: July 12, 2024 Subjective Pt choked on his pills and this morning and states that he is unable to hold any food down. His pain is still uncontrolled despite dilaudid 1mg Q2hrs. He is currently on a Venti mask after having increased SOB this am. Review of Systems Review of Systems: CONST: Negative for fever, body aches and chills. HENT: Negative for neck pain/stiffness, headache, congestion, sore throat, swelling. EYES: Negative for discharge/pain or vision changes. RESP: Negative for cough/hemoptysis and shortness of breath. CV: Negative chest pain, difficulty breathing, palpitations. ABD: Negative pain, nausea, vomiting. : Negative increase frequency, dysuria, blood in urine or stool. MUSC: Negative for muscle aches, edema. SKIN: Negative rash, lesions/sores. NEURO: Negative headache, dizziness, weakness. Physical Exam Physical Exam: GENERAL APPEARANCE NAD, activity normal for age, well developed/ well nourished, no cyanosis, pallor, or diaphoresis. EYES lids/conjunctiva normal. EARS/NOSE/THROAT Mucous membranes moist, nares normal, lips/teeth normal uvula midline without oral pharyngeal erythema, exudate or swelling TMs normal bilaterally. No lymphangitis/lymphedema. HEAD/NECK normocephalic atraumatic, no facial trauma, neck is supple. RESPIRATORY decreased breath sounds at bases, no wheezing, rales, or ronchi. CARDIAC Regular rate and rhythm, no edema. ABDOMINAL Soft, ND/NT. No evidence of fluid wave. No pulsatile masses on exam, rebound tenderness, Sanchez sign or pain over Mcburney's point. MUSCLES/EXTREMITIES No abnormal range of motion, no swelling. SKIN Warm, pink and dry. No rashes, dermatoses, petechiae or lesions. NEUROLOGICAL Speech is clear and appropriate. Normal level of consciousness. Gait and coordination are normal. 5/5 strength in all extremities. PSYCH Normal mood and affect. Judgement/competence is appropriate Results & Data Results & Data Vital Signs (Past 12 Hours) Vital Signs Temp Pulse Pulse Pulse Resp BP BP 07/16/24 09:14 07/16/24 08:21 36.6 C 119 H 24 131/92 07/16/24 07:45 35.7 C L 123 H 26 H 182/108 H 07/16/24 06:59 111 H 07/16/24 04:14 36.7 C 115 H 20 132/94 Pulse Ox O2 Del Method O2 Flow Rate 07/16/24 09:14 Oxymask 07/16/24 08:21 96 Oxyhood 11 07/16/24 07:45 93 Oxymask 11 07/16/24 06:59 07/16/24 04:14 93 Room Air PG Care Time/CCT Total # of Minutes Spent Total Time Spent with Patient: Total time spent is greater than 50% in coordination of care (as documented) at patient's floor/unit and/or counseling patient: Coding Level of Care Code 44772 SUB INP/OBS CARE 2/35MIN Diagnoses Metastatic carcinoma to bone C79.51 Cancer related pain G89.3 Hypercalcemia E83.52 Palliative chemotherapy underway Z79.899 Acute on chronic respiratory failure with hypoxia J96.21 COPD (chronic obstructive pulmonary disease) J44.9
[2024-07-16] MEDS: CHECK fentaNYL PATCH PLACEMENT SCH (15:35)
[2024-07-17 07:35] VITALS: RESP 16; TEMP 97.7; O2SAT 98
--- NOTE | 2024-07-17 08:14 | Hospitalist Progress Note ---
Date of Service July 17, 2024 Assessment & Plan (1) Metastatic carcinoma to bone: Plan: metastatic squamous cell carcinoma-> Poor prognosis Progressive disease as described above within the neck, chest, abdomen and pelvis including pulmonary, lymphatic, hepatic, osseous and intramuscular metastasis. Fixated pathologic left proximal femoral fracture. The progressive disease within the right proximal femur places the patient at an increased risk for an additional pathologic fracture. Palliative care consult appreciated Pt realistic about his impending Improvement of pain control with fentanyl transdermal Insistent on home care and dose not want to be placed (2) Cancer related pain: Plan: Fentayl transdermal added by pallative care Continue oxycodone extended release 60 mg p.o. every 12 hours Oxycodone 20 mg p.o. every 6 hours as needed for severe cancer pain Dilaudid 1 mg IV every 2 hours as needed for severe pain breakthrough (3) Hypercalcemia: Plan: Hypercalcemia of malignancy 12.7, to be treated with pamidronate 60 mg IV x 1 Ca+ down from 12.7 to 10.8 (4) Palliative chemotherapy underway: (5) Acute on chronic respiratory failure with hypoxia: Plan: Albuterol HFA 2 puffs every 6 hours as needed DuoNebs every 2 hours as (6) COPD (chronic obstructive pulmonary disease): Plan: Umeclidinium-vilanterol 1 inhalation every morning Plan Pt will benefit from [email or web address] that con offer IV opioid infusions. Case management, palliative care working on plan. Admission and Anticipated Discharge Date Admission Date: July 12, 2024 Results & Data Results & Data Vital Signs (Past 12 Hours) Vital Signs Temp Pulse Resp BP Pulse Ox O2 Del Method O2 Flow Rate 07/17/24 07:35 Room Air 07/17/24 07:34 97.7 F 124 H 16 122/89 98 Oxymask 2 07/17/24 01:00 Room Air PG Care Time/CCT Total # of Minutes Spent Total Time Spent with Patient: Total time spent is greater than 50% in coordination of care (as documented) at patient's floor/unit and/or counseling patient: Coding Diagnoses Metastatic carcinoma to bone C79.51 Cancer related pain G89.3 Hypercalcemia E83.52 Palliative chemotherapy underway Z79.899 Acute on chronic respiratory failure with hypoxia J96.21 COPD (chronic obstructive pulmonary disease) J44.9
--- NOTE | 2024-07-17 10:58 | Electrocardiogram Report ---
Test Reason : Blood Pressure : */* mmHG Vent. Rate : 108 BPM Atrial Rate : 108 BPM P-R Int : 140 ms QRS Dur : 90 ms QT Int : 332 ms P-R-T Axes : 37 69 48 degrees QTcB Int : 444 ms Sinus tachycardia with frequent Premature ventricular complexes Possible Anterior infarct (cited on or before 13-May-2024) Abnormal ECG When compared with ECG of 12-Jul-2024 16:06, Premature ventricular complexes are now Present Nonspecific T wave abnormality now evident in Inferior leads Confirmed by Clem Aldana ([id number]) on 07/17/2024 10:57:35 AM Referred By: REFERRED SELF Confirmed By: Clem Aldana
--- NOTE | 2024-07-17 13:13 | Palliative Care Progress Note ---
Date of Service July 17, 2024 Assessment & Plan (1) Weakness generalized: (2) Dyspnea and respiratory abnormalities: (3) Cancer related pain: (4) Acute on chronic respiratory failure with hypoxia: (5) Palliative care by specialist: (6) Metastatic carcinoma to bone: (7) Squamous cell carcinoma in situ: Plan Continue TDF 75mch and Oxy IR 20mg PO q2h prn Likely home with hospice today Thank you for allowing us to participate in the ongoing care of this patient. Please page with any additional concerns. Aurelia Rascon DNP Director, Palliative Medicine Admission and Anticipated Discharge Date Admission Date: July 12, 2024 Subjective Feeling signif better with TDF not wearing oxygen cough as lessened anxious to go home today, DME being delivered by noon not eating much but sometime easier to swallow when he takes a sip of water with a bite of food Review of Systems Review of Systems: All systems reviewed & are unremarkable except as noted in Subjective Physical Exam Physical Exam: Bitemp wasting +cachexia perrla dentition poor supple neck, no stridor increased effort, conversational dyspnea lungs with decreased air flow, coarse, rhonchi, few wheezes anterior chest wall tenderness [id number] abd scaphoid, soft Gen weakness thin extremities +muscle wasting awake and alert but forgetful at times skin pale Results & Data Vital Signs (Past 12 Hours) Vital Signs Temp Pulse Resp BP Pulse Ox O2 Del Method O2 Flow Rate 07/17/24 07:35 Room Air 07/17/24 07:34 36.5 C 124 H 16 122/89 98 Oxymask 2 Laboratory Results 07/15/24 07/12/24 07/12/24 Range/Units 08:11 22:59 19:20 WBC 8.59 (4.8-10.8) K/ul RBC 4.26 L (4.70-6.10) M/uL Hgb 11.7 L (14.0-18.0) g/dl Hct 37.6 L (42.0-52.0) % MCV 88.3 (80.0-100.0) fL MCH 27.5 (25.0-34.0) pg MCHC 31.1 L (32.0-36.0) g/dL RDW Std Deviation 50.9 H (36.4-46.3) fL RDW Coeff of Xavi 15.9 H (11.5-14.5) % Plt Count 337 (130-400) K/uL MPV 9.6 (9.4-12.4) fL Immature Gran % (Auto) 0.7 % Neut % (Auto) 76.1 % Lymph % (Auto) 8.6 % Merrick % (Auto) 13.3 % Eos % (Auto) 0.8 % Baso % (Auto) 0.5 % Neut # (Auto) 6.54 H (1.40-6.50) K/uL Lymph # (Auto) 0.74 L (1.20-3.40) K/uL Merrick # (Auto) 1.14 H (0.11-0.59) K/uL Eos # (Auto) 0.07 (0.00-0.50) K/uL Baso # (Auto) 0.04 (0.00-0.20) K/uL Immature Gran # (Auto) 0.06 (0.01-0.20) K/uL PT (9.0-12.0) Seconds INR (0.9-1.1) APTT (21-31) Seconds PTT Ratio Sodium 135 L (136-145) mmol/L Potassium 4.7 (3.5-5.1) mmol/L Chloride 98 (98-107) mmol/L Carbon Dioxide 29 (21-32) mmol/L Anion Gap 8 (3-11) BUN 15 (6-23) mg/dl Creatinine 0.85 (0.6-1.4) mg/dl Est Cr Clr Drug Dosing 81.2 eGFR 100.72 BUN/Creatinine Ratio 17.6 (10-20) Glucose 96 (70-99(Fasting)) mg/dl Lactate 1.2 (0.4-2.0) mmol/L Calcium 10.8 H (8.6-10.3) mg/dl Magnesium (1.7-2.4) mg/dl Total Bilirubin (0.2-1.0) mg/dl AST (13-39) U/L ALT (7-52) U/L Alkaline Phosphatase (34-104) U/L Troponin I High Sens (0-20) pg/ml B-Natriuretic Peptide (0-100) pg/ml Total Protein (6.0-8.3) gm/dl Albumin (3.4-5.0) gm/dl Globulin (2.5-4.0) gm/dl Albumin/Globulin Ratio (0.9-2) Procalcitonin (0-0.5) ng/ml Urine Color Yellow Urine Appearance Cloudy A (Clear) Urine pH 7.5 (4.5-7.5) Ur Specific [place] 1.020 (1.000-1.030) Urine Protein 1+ H (Negative) Urine Glucose (UA) Negative (Negative) Urine Ketones Trace H (Negative) Urine Blood Negative (Negative) Urine Nitrite Negative (Negative) Urine Bilirubin Negative (Negative) Urine Urobilinogen Negative (Negative) Ur Leukocyte Esterase Trace H (Negative) Urine WBC (Auto) 0-5 (0-5) /hpf Urine RBC (Auto) 0-2 (0-2) /hpf U Hyaline Cast (Auto) 11-20 H (0-2) /lpf U Epithel Cells (Auto) 0-2 (0-2) /hpf Urine Bacteria (Auto) None Seen (None Seen) Calcium Oxalate Crystal Present A (None Prsent) 07/12/24 07/12/24 Range/Units 17:03 16:18 WBC 12.50 H (4.8-10.8) K/ul RBC 4.62 L (4.70-6.10) M/uL Hgb 12.6 L (14.0-18.0) g/dl Hct 40.3 L (42.0-52.0) % MCV 87.2 (80.0-100.0) fL MCH 27.3 (25.0-34.0) pg MCHC 31.3 L (32.0-36.0) g/dL RDW Std Deviation 49.8 H (36.4-46.3) fL RDW Coeff of Xavi 15.5 H (11.5-14.5) % Plt Count 407 H (130-400) K/uL MPV 10.2 (9.4-12.4) fL Immature Gran % (Auto) 0.4 % Neut % (Auto) 85.1 % Lymph % (Auto) 4.7 % Merrick % (Auto) 9.4 % Eos % (Auto) 0.2 % Baso % (Auto) 0.2 % Neut # (Auto) 10.63 H (1.40-6.50) K/uL Lymph # (Auto) 0.59 L (1.20-3.40) K/uL Merrick # (Auto) 1.18 H (0.11-0.59) K/uL Eos # (Auto) 0.02 (0.00-0.50) K/uL Baso # (Auto) 0.03 (0.00-0.20) K/uL Immature Gran # (Auto) 0.05 (0.01-0.20) K/uL PT 11.4 (9.0-12.0) Seconds INR 1.1 (0.9-1.1) APTT 25 (21-31) Seconds PTT Ratio 0.9 Sodium 131 L (136-145) mmol/L Potassium 4.6 (3.5-5.1) mmol/L Chloride 93 L (98-107) mmol/L Carbon Dioxide 31 (21-32) mmol/L Anion Gap 7 (3-11) BUN 21 (6-23) mg/dl Creatinine 1.09 (0.6-1.4) mg/dl Est Cr Clr Drug Dosing Not Reportable eGFR 78.67 BUN/Creatinine Ratio 19.3 (10-20) Glucose 98 (70-99(Fasting)) mg/dl Lactate 2.2 H* (0.4-2.0) mmol/L Calcium 12.7 H* (8.6-10.3) mg/dl Magnesium 2.5 H (1.7-2.4) mg/dl Total Bilirubin 0.5 (0.2-1.0) mg/dl AST 24 (13-39) U/L ALT 22 (7-52) U/L Alkaline Phosphatase 150 H (34-104) U/L Troponin I High Sens 9.3 (0-20) pg/ml B-Natriuretic Peptide 18 (0-100) pg/ml Total Protein 7.6 (6.0-8.3) gm/dl Albumin 3.9 (3.4-5.0) gm/dl Globulin 3.7 (2.5-4.0) gm/dl Albumin/Globulin Ratio 1.1 (0.9-2) Procalcitonin 0.20 (0-0.5) ng/ml Urine Color Urine Appearance (Clear) Urine pH (4.5-7.5) Ur Specific [place] (1.000-1.030) Urine Protein (Negative) Urine Glucose (UA) (Negative) Urine Ketones (Negative) Urine Blood (Negative) Urine Nitrite (Negative) Urine Bilirubin (Negative) Urine Urobilinogen (Negative) Ur Leukocyte Esterase (Negative) Urine WBC (Auto) (0-5) /hpf Urine RBC (Auto) (0-2) /hpf U Hyaline Cast (Auto) (0-2) /lpf U Epithel Cells (Auto) (0-2) /hpf Urine Bacteria (Auto) (None Seen) Calcium Oxalate Crystal (None Prsent) PG Care Time/CCT Total # of Minutes Spent Total Time Spent: 45 Total Time Spent with Patient: Total time spent is greater than 50% in coordination of care (as documented) at patient's floor/unit and/or counseling patient: [place] [address] SUB INP/OBS CARE 3/50MIN Patient Type Established Medical Decision Making High Complexity Diagnoses Weakness generalized R53.1 Dyspnea and respiratory abnormalities R06.00; R06.89 Cancer related pain G89.3 Acute on chronic respiratory failure with hypoxia J96.21 Palliative care by specialist Z51.5 Metastatic carcinoma to bone C79.51 Squamous cell carcinoma in situ D09.9
[2024-07-17 13:19] VITALS: BP 132/94; PULSE 100
--- NOTE | 2024-07-17 17:39 | Discharge Summary ---
Discharge Summary Date of Service July 17, 2024 Principal Dx & Hospital Course #1 = Principal Diagnosis (1) Metastatic carcinoma to bone: metastatic squamous cell carcinoma-> Poor prognosis Progressive disease as described above within the neck, chest, abdomen and pelvis including pulmonary, lymphatic, hepatic, osseous and intramuscular metastasis. Fixated pathologic left proximal femoral fracture. The progressive disease within the right proximal femur places the patient at an increased risk for an additional pathologic fracture. Palliative care consult appreciated Pt realistic about his impending Improvement of pain control with fentanyl transdermal Insistent on home care and dose not want to be placed transition to home hospice on 07/17/2024 (2) Cancer related pain: Fentayl transdermal added by pallative care Oxycodone 20 mg p.o. every 6 hours as needed for severe cancer pain Hospice to take over pain medications after discharge (3) Hypercalcemia: Hypercalcemia of malignancy 12.7, to be treated with pamidronate 60 mg IV x 1 Ca+ down from 12.7 to 10.8 (4) Acute on chronic respiratory failure with hypoxia: Albuterol HFA 2 puffs every 6 hours as needed DuoNebs every 2 hours as Oxygen pending time of discharge oxygen to be delivered to home (5) COPD (chronic obstructive pulmonary disease): Umeclidinium-vilanterol 1 inhalation every morning Plan He is management has arranged for home hospice care Notes For Next Care Provider Transition to home hospice Admission HPI Per Admitting Provider The patient is a 59-year-old male with a past medical history including metastatic lung cancer, chronic hypoxic respiratory failure, squamous cell carcinoma in situ, COPD, mediastinal lymphadenopathy, hypothyroidism, hypertension and agitation. He presents to the emergency department with report of having been transferred from [facility] to [facility] surgical ICU for potential intervention by thoracic surgery on 07/07, but was found to not be a surgical candidate, at which point he was discharged on 07/08. He has been in contact with Dr. Gu[facility] from [facility], and was to start oral chemotherapy next week, however, his pain became so bad, that he came to the ED for assessment and treatment this evening. Discharge Exam Patient says pain is about a 5/10 he appears comfortable he is agreeable to be transition to home hospice at this point time does not appear to be in any labored or distressed state Discharge Plan Discharge Items Patient Disposition: Hospice - Home Reason For Visit: INTRACTABLE CANCER PAIN Discharge Diagnosis: metastic squamous cell cancer cancer related pain Activity: Per Instructions section Activity Comment: rest and recovery Non-emergency contact: Specialist Call non-emergency contact if: your pain is not controlled Follow-up/Referrals: Lori Ortiz PA-C [Primary Care Provider] - Diet: Regular Addtl Attending Provider Instructions: please inform hospice care at home regarding your pain control and need for adjustments Pending Studies at Discharge: No Stand-Alone Forms: My [facility] Medications and DC Order Prescriptions: New fentanyl 75 mcg/hr Patch 72 Hour 1 patch transdermal Q3D Qty: 5 0RF lorazepam [Ativan] 0.5 mg tablet 0.5 mg buccal TID PRN (Reason: sedation) Qty: 30 0RF Continued prochlorperazine maleate 10 mg tablet 10 mg PO Q6H PRN (Reason: Nausea) Anoro Ellipta 62.5-25 mcg/actuation blister with device 1 inh inhalation QAM levothyroxine 25 mcg capsule 25 mcg PO QAM olanzapine [Zyprexa] 2.5 mg tablet 2.5 mg PO QPM PRN (Reason: Other) Patient Comments: chemo fluticasone propionate 110 mcg/actuation HFA aerosol inhaler 1 puff inhalation BID Rx Instructions: needs a refill on medication. per pt he really needs this inhaler. cholecalciferol (vitamin D3) 10 mcg (400 unit) capsule 10 mcg PO BID calcium carbonate 500 mg calcium (1,250 mg) tablet 500 mg PO BID albuterol sulfate [Ventolin HFA] 90 mcg/actuation HFA aerosol inhaler 2 puff INHALATION Q6H PRN (Reason: SOB) Qty: 6.7 2RF lubiprostone 24 mcg capsule 24 mcg PO UD Rx Instructions: 24 mcg po bid. Spouse didnt seem sure of this medication last filled 07/03 oxycodone 20 mg tablet 20 mg PO Q6H PRN (Reason: severe cancer pain) 30 Days Qty: 10 0RF Discontinued omega-3 fatty acids 500 mg capsule 500 mg PO DAILY PRN (Reason: Pain) oxycodone [OxyContin] 60 mg tablet,oral only,ext.rel.12 hr 60 mg PO Q12H 10 Days Qty: 20 0RF losartan 50 mg Tablet 50 mg PO QAM Truqap 200 mg tablet 200 mg PO UD Rx Instructions: hasnt started medication yet, will be meeting with doctor. Discharge Orders: Discharge Order (Routine); Ordered 07/17/24 Ordered By: Tomasz Ceballos Admission Data Admit Date/Time: 07/12/24 20:32 Attending Provider: Tomasz Ceballos Admit Provider: Aguilar Gabriel Primary Care Provider: Lori Ortiz Other Providers: Aguilar Gabriel; Dena Ling; Margarita Brooke; Sharon Rascon; [facility] Other Interventions: Discharge Summary Assessment (RN) Last Done: 07/17/24 13:18 Hospital Stay Data Consultations 07/12/24 19:34 ED Decision to Admit Stat 07/12/24 23:06 Consult Hematology Routine 07/13/24 03:14 Consult Palliative Care Routine 07/16/24 08:12 Consult Palliative Care Routine Pending Results Patient Have Any Pending Studies at Discharge: No Discharge Instructions Given to Patient (Per Discharging Provider) please inform hospice care at home regarding your pain control and need for adjustments Total Time Total Time Spent Total Time Spent (In Minutes): It required greater than 30 minutes to prepare this patient for discharge. Coding Level of Care Code 77603 INP/OBS DISCH >30 MIN Diagnoses Metastatic carcinoma to bone C79.51 Cancer related pain G89.3 Hypercalcemia E83.52 Acute on chronic respiratory failure with hypoxia J96.21 COPD (chronic obstructive pulmonary disease) J44.9
== END 2024-07-17 15:47 | disposition hospice, home (50) | DRG 947 ==
LOC: ED 15:39 → EDINP 20:32 → SUATTDRO 20:32 → 2W 23:27